=== PATIENT | male | born 1955 | race Caucasian/White ===

== ENCOUNTER 2020-08-06 10:27 | Outpatient (REF) | payer BC, SELFPAY ==
[2020-08-06 10:31] LABS: MANUAL DIFF FLAG NO
[2020-08-06 10:55] LABS: Basophils Absolute Auto 0.1 X10*3/uL (0.0-0.2); Basophils Percent Auto 1.1 % (0-2); Eosinophils Absolute Auto 0.2 X10*3/uL (0.0-0.4); Eosinophils Percent Auto 2.9 % (0-4); Hemoglobin 14.6 g/dl (14.0-18.0); Imm Gran Abs Auto 0.02 X10*3/uL (0.00-0.03); Imm Gran Pct Auto 0.3 % (0.0-0.4); Lymphocytes Absolute Auto 2.2 X10*3/uL (1.2-4.9); Mean Corpuscular HGB Conc 33.2 g/dl (31.0-36.0); Mean Corpuscular Hemoglobin 30.9 pg (27.0-33.0); Mean Corpuscular Volume 93.2 fL (80-98); Mean Platelet Volume 9.2 fL (9.4-12.4); Monocytes Absolute Auto 0.7 X10*3/uL (0.1-1.2); Monocytes Percent Auto 9.9 % (2-11); Neutrophils Absolute Auto 3.7 X10*3/uL (2.0-8.3); Neutrophils Percent Auto 53.8 % (45-73); Platelet Count 335 X10*3/uL (160-400); Red Blood Count 4.72 X10*6/uL (4.60-5.80); Red Cell Distribution Width 12.7 % (11.0-16.0)
[2020-08-06 11:01] LABS: Glucose Urine UA NEG (NEG); Leukocyte Esterase Urine NEG (NEG); Nitrite Urine NEG (NEG); Specific Gravity - Urine 1.025 (1.005-1.025); Urine Blood NEG (NEG); Urine Ketones NEG (NEG); Urine Protein NEG (NEG-TRACE)
[2020-08-06 11:03] LABS: Appearance Urine CLEAR; Color Urine YELLOW
[2020-08-06 11:29] LABS: Alanine Aminotransferase 31 U/L (0-40); Albumin Level 4.5 g/dL (3.5-5.0); Alkaline Phosphatase 107 U/L (39-117); Anion Gap 12 (12-20); Aspartate Amino Transferase 27 U/L (5-37); Bilirubin Total 1.1 mg/dL (0.0-1.0); Blood Urea Nitrogen 15 mg/dL (9-16); Calcium 9.2 mg/dL (8.4-10.2); Carbon Dioxide 31 mmol/L (22-29); Chloride 103 mmol/L (96-108); Cholesterol 167 mg/dL; Estimated Glomerular Filt Rate > 60; Glucose Fasting 92 mg/dL (60-99); HDL Cholesterol 48 mg/dL; LDL Cholesterol Calculated 84 mg/dl; Sodium 142 mmol/L (135-145); Triglycerides 176 mg/dL
[2020-08-06 11:51] LABS: PSA,Total (Free>4and<10) 0.67 ng/mL (0.00-4.00); TSH reflex Free T4 1.66 uIU/mL (0.32-4.0)
[2020-08-06 13:36] LABS: Reflex LDLD? No
== END 2020-08-06 10:28 | disposition home or self-care (01) ==
LOC: HO.LNP 10:27
PROVIDERS: Visit Provider Internal Medicine
DX: Z00.00 Encounter for general adult medical examination without abnormal findings (principal); Z12.5 Encounter for screening for malignant neoplasm of prostate; E78.2 Mixed hyperlipidemia; E04.1 Nontoxic single thyroid nodule; I10 Essential (primary) hypertension
CPT/HCPCS: 80053; 80061; 81003; 84153; 84154; 84443; 85025

== ENCOUNTER 2020-09-07 13:17 | Outpatient (REF) | payer SELFPAY | END 2020-09-07 13:18 | disposition home or self-care (01) | LOC: HO.HAP 13:17 | PROVIDERS: Visit Provider Internal Medicine | DX: Z46.1 Encounter for fitting and adjustment of hearing aid (principal); H90.3 Sensorineural hearing loss, bilateral | CPT/HCPCS: V5014; V5299 ==

== ENCOUNTER 2021-02-11 11:36 | Outpatient (REF) | payer BC, SELFPAY ==
[2021-02-11 12:41] LABS: Alanine Aminotransferase 26 U/L (0-40); Albumin Level 4.1 g/dL (3.5-5.0); Alkaline Phosphatase 84 U/L (39-117); Aspartate Amino Transferase 27 U/L (5-37); Bilirubin Direct 0.3 mg/dL (0.0-0.5); Bilirubin Total 0.7 mg/dL (0.0-1.0); Cholesterol 146 mg/dL; HDL Cholesterol 43 mg/dL; LDL Cholesterol Calculated 76 mg/dl; Total Protein 6.3 g/dL (6.5-8.0); Triglycerides 137 mg/dL
[2021-02-11 12:58] LABS: Reflex LDLD? No
== END 2021-02-11 11:37 | disposition home or self-care (01) ==
LOC: HO.LNP 11:36
PROVIDERS: Visit Provider Internal Medicine
DX: E78.2 Mixed hyperlipidemia (principal)
CPT/HCPCS: 80061; 80076

== ENCOUNTER 2021-04-15 10:02 | Outpatient (REF) | payer SELFPAY | END 2021-04-15 10:03 | disposition home or self-care (01) | LOC: HO.HAP 10:02 | PROVIDERS: PCP Internal Medicine; Visit Provider Internal Medicine | DX: H90.3 Sensorineural hearing loss, bilateral (principal) | CPT/HCPCS: V5267 ==

== ENCOUNTER 2021-07-29 14:34 | Outpatient (REF) | payer MEDICARE, SELFPAY ==
[2021-07-29 15:11] LABS: Calcium 9.5 mg/dL (8.4-10.2); Potassium 4.1 mmol/L (3.3-5.1)
== END 2021-07-29 14:35 | disposition home or self-care (01) ==
LOC: HO.LNP 14:34
PROVIDERS: Visit Provider Internal Medicine
DX: R25.2 Cramp and spasm (principal)
CPT/HCPCS: 82310; 83735; 84132

== ENCOUNTER 2021-09-23 11:24 | Outpatient (REF) | payer MEDICARE, SELFPAY ==
[2021-09-23 11:44] LABS: MANUAL DIFF FLAG NO
[2021-09-23 11:52] LABS: Appearance Urine CLEAR; Color Urine YELLOW; Glucose Urine UA NEG (NEG); Leukocyte Esterase Urine NEG (NEG); Nitrite Urine NEG (NEG); Specific Gravity - Urine >= 1.030 (1.005-1.025); Urine Blood NEG (NEG); Urine Ketones NEG (NEG); Urine Protein NEG (NEG-TRACE)
[2021-09-23 12:13] LABS: Basophils Absolute Auto 0.1 X10*3/uL (0.0-0.2); Basophils Percent Auto 1.2 % (0-2); Eosinophils Absolute Auto 0.2 X10*3/uL (0.0-0.4); Eosinophils Percent Auto 3.4 % (0-4); Hematocrit 42.2 % (42.0-52.0); Hemoglobin 13.9 g/dl (14.0-18.0); Imm Gran Abs Auto 0.07 X10*3/uL (0.00-0.03); Lymphocytes Absolute Auto 2.4 X10*3/uL (1.2-4.9); Lymphocytes Percent Auto 34.9 % (20-40); Mean Corpuscular HGB Conc 32.9 g/dl (31.0-36.0); Mean Corpuscular Hemoglobin 31.8 pg (27.0-33.0); Mean Corpuscular Volume 96.6 fL (80.0-98.0); Monocytes Absolute Auto 0.7 X10*3/uL (0.1-1.2); Monocytes Percent Auto 10.5 % (2-11); Neutrophils Absolute Auto 3.3 x10*3/uL (2.0-8.3); Platelet Count 361 X10*3/uL (160-400); Red Blood Count 4.37 X10*6/uL (4.60-5.80); Red Cell Distribution Width 13.4 % (11.0-16.0); White Blood Count 6.7 X10*3/uL (4.8-10.8)
[2021-09-23 12:16] LABS: Alanine Aminotransferase 24 U/L (0-40); Albumin Level 4.2 g/dL (3.5-5.0); Alkaline Phosphatase 89 U/L (39-117); Anion Gap 10 (12-20); Aspartate Amino Transferase 24 U/L (5-37); Bilirubin Total 0.9 mg/dL (0.0-1.0); Blood Urea Nitrogen 15 mg/dL (9-16); Calcium 9.2 mg/dL (8.4-10.2); Carbon Dioxide 30 mmol/L (22-29); Chloride 103 mmol/L (96-108); Cholesterol 144 mg/dL; Estimated Glomerular Filt Rate > 60; Glucose Fasting 95 mg/dL (60-99); HDL Cholesterol 52 mg/dL; LDL Cholesterol Calculated 72 mg/dl; Sodium 139 mmol/L (135-145); Total Protein 6.5 g/dL (6.5-8.0); Triglycerides 101 mg/dL
[2021-09-23 12:37] LABS: PSA,Total (Free>4and<10) 0.62 ng/mL (0.00-4.00)
== END 2021-09-23 11:25 | disposition home or self-care (01) ==
LOC: HO.LNP 11:24
PROVIDERS: Visit Provider Internal Medicine
DX: Z00.00 Encounter for general adult medical examination without abnormal findings (principal); I10 Essential (primary) hypertension; E78.2 Mixed hyperlipidemia; E04.1 Nontoxic single thyroid nodule; Z12.5 Encounter for screening for malignant neoplasm of prostate
CPT/HCPCS: 80053; 80061; 81003; 84153; 85025

== ENCOUNTER 2021-10-21 10:30 | Outpatient (REF) | payer MEDICARE, SELFPAY ==
[2021-10-21 11:18] LABS: Vitamin D 25-OH Total 21.5 ng/mL (>30)
== END 2021-10-21 10:31 | disposition home or self-care (01) ==
LOC: HO.LNP 10:30
PROVIDERS: PCP Internal Medicine; Visit Provider Internal Medicine
DX: M62.838 Other muscle spasm (principal)
CPT/HCPCS: 82306

== ENCOUNTER 2021-12-23 11:09 | Outpatient (REF) | payer MEDICARE, SELFPAY ==
--- NOTE | ~2021-12-23 | US_ITS ---
EXAMINATION: US THYROID CLINICAL INFORMATION: Nontoxic thyroid nodule. COMPARISON: US thyroid 11/01/2013. TECHNIQUE: Linear transducer grayscale and color Doppler examination with attention to the region of the thyroid. FINDINGS: SIZE: Measurements of the thyroid lobes and nodules are given in sagittal, anteroposterior and transverse dimensions respectively. Right Thyroid Lobe: 3.5 x 2.2 x 2.4 cm, volume 9.6 mL. Previously 4.2 x 1.6 x 2.6 cm, volume 9.13 mL. Parenchyma: The gland echotexture is homogeneous. Thyroid vascularity is normal. Left Thyroid Lobe: 4.9 x 2.9 x 2.0 cm, volume 15.0 mL. Previously 6.2 x 2.2 x 1.7 cm, volume 12.1 mL. Parenchyma: The gland echotexture is homogeneous. Thyroid vascularity is normal. Isthmus: 0.82 cm in maximum AP dimension. Previously 0.30 cm. Estimated total number of nodules greater than or equal to 1 cm: 1. Jtac nodules are described as follows: 1. Location: Right mid. Size: 0.32 x 0.25 x 0.31 cm, volume 0.01 mL. Previously: 0.24 x 0.15 x 0.22 cm, volume 0.004 mL. Nodule characteristics: Composition: Cystic(0). ACR TI-RADS total points: 0 ACR TI-RADS category: 1 Significant change in size (>/= 20% in 2 dimensions and minimal increase of 2 mm or 50% or greater increase in volume): None Change in features: None Change in ACR TI-RADS risk category: Not applicable 2. Location: Left inferior. Size: 0.63 x 0.54 x 0.60 cm, volume 0.11 mL. Previously: 0.66 x 0.52 x 0.56 cm, volume 0.10 mL. Nodule characteristics: Composition: Solid (2). Echogenicity: Cannot be determined (1). Shape: Not taller than wide (0). Margins: Smooth (0). Echogenic Foci: Peripheral calcifications (2). ACR TI-RADS total points: 5 ACR TI-RADS category: 4 Significant change in size (>/= 20% in 2 dimensions and minimal increase of 2 mm or 50% or greater increase in volume): None Change in features: None Change in ACR TI-RADS risk category: Not applicable 3. Location: Isthmus. Size: 1.5 x 0.60 x 1.8 cm, volume 0.85 mL. Previously: 0.90 x 0.50 x 0.80 cm, volume 0.19 mL. Nodule characteristics: Composition: Cystic(0). ACR TI-RADS total points: 0 ACR TI-RADS category: 1 Significant change in size (>/= 20% in 2 dimensions and minimal increase of 2 mm or 50% or greater increase in volume): Slight increase in volume. Change in features: None Change in ACR TI-RADS risk category: Not applicable. NODES: No lymphadenopathy is seen in the tissue surrounding the thyroid gland. US/US thyroid IMPRESSION: 1. Slightly enlarged thyroid gland similar to previous study from 11/02/2013. 2. At least 3 thyroid nodules subcentimeter nonsuspicious. ACR TI-RADS RECOMMENDATION REFERENCE: Ultrasound-guided fine-needle aspiration, followup ultrasound, no further follow up. * TR1 (0 point) and TR 2 (2 points): No FNA or follow up * TR3 (3 points): FNA if more than or equal to 2.5 cm in maximum dimension, followup ultrasound in 1, 3 and 5 years if 1.5 to 2.4 cm in maximum dimension. * TR4 (4-6 points): FNA if more than or equal to 1.5 cm in maximum dimension, followup ultrasound in 1, 2, 3 and 5 years if 1 to 1.4 cm in maximum dimension. * TR5 (more than or equal to 7 points): FNA if more than or equal to 1 cm in maximum dimension, followup ultrasound every year for 5 years if 0.5 to 0.9 cm in maximum dimension. * TR3, TR4 or TR5 nodules that are below the size threshold for follow up receive no follow up.
== END 2021-12-23 11:10 | disposition home or self-care (01) ==
LOC: HO.US 11:09
PROVIDERS: Visit Provider Internal Medicine
DX: E04.1 Nontoxic single thyroid nodule (principal)
CPT/HCPCS: 76536

== ENCOUNTER 2022-02-14 14:06 | Emergency (ER) | payer MEDICARE, SELFPAY ==
--- NOTE | ~2022-02-14 | CT_ITS ---
EXAMINATION: CT ABDOMEN AND PELVIS WITH CONTRAST CLINICAL INFORMATION: Right lower quadrant pain COMPARISON: None TECHNIQUE: Multidetector volumetric images were obtained from the superior aspect of the liver through the pubic symphysis following administration 85 mL of Omnipaque 350 intravenous contrast. Sagittal and coronal reformatted images were obtained on the technologist's workstation. Oral contrast: No This CT examination was performed using dose optimization techniques as appropriate, variously including the following: *Automated exposure control *Adjustment of mA and/or kV according to patient size (this includes techniques or standardized protocols for targeted exams where dose is matched to indication/reason for exam; i.e. extremities or head) *Use of iterative reconstruction technique DLP: 588 mGy-cm FINDINGS: LUNG BASES: Mild basilar markings. May be chronic. LIVER, GALLBLADDER, AND BILIARY TREE: Small 2 to 3 mm low-density lesion in the left lobe is likely incidental. The gallbladder is unremarkable with no evidence of radiopaque gallstones, gallbladder wall thickening, or obvious pericholecystic inflammatory changes. PANCREAS: Unremarkable. SPLEEN: Unremarkable. ADRENAL GLANDS: Unremarkable. KIDNEYS AND URETERS: The kidneys are normal in size, shape, and attenuation. No hydronephrosis, hydroureter, or calculi seen. No perinephric stranding. BLADDER: Unremarkable. GASTROINTESTINAL TRACT: Diverticulosis in the sigmoid. No evidence for diverticulitis. A normal appendix is not seen but no definitive suspicion around the cecum Hiatal hernia is noted ABDOMINAL WALL: There is felt to be the beginnings of a small right inguinal hernia and there is some minimal extension of bowel into the very beginning of the hernia. LYMPH NODES: Normal. VASCULAR: Mild aneurysmal change of the iliacs. 1.4 cm on the right. 1.4 cm on the left. PELVIC VISCERA: Prominent prostate OSSEOUS STRUCTURES: There replacement on the right. Some sclerotic change in the left femoral head. An element of osteonecrosis/avascular necrosis would need to be considered. The femoral head contour remains smooth CT/CT abdomen pelvis w IV con IMPRESSION: I believe we are seeing the beginnings of a small right inguinal herniation. Some small bowel leads up to this opening but there is no bowel dilatation proximal. Diverticulosis in the sigmoid but no evidence for diverticulitis. Hiatal hernia. Mild aneurysmal change of the iliacs. Sclerotic left femoral head. Osteonecrosis would be a consideration. Consider MR if clinically indicated. Fleischner guidelines were followed.
[2022-02-14 15:38] VITALS: BP 149/93; PULSE 65; RESP 16; TEMP 36.9; O2SAT 99; BMI 26.9
[2022-02-14 15:57] LABS: MANUAL DIFF FLAG NO
[2022-02-14 16:08] LABS: Basophils Absolute Auto 0.1 X10*3/uL (0.0-0.2); Basophils Percent Auto 1.4 % (0-2); Eosinophils Absolute Auto 0.3 X10*3/uL (0.0-0.4); Hematocrit 41.6 % (42.0-52.0); Hemoglobin 14.2 g/dl (14.0-18.0); Imm Gran Abs Auto 0.03 X10*3/uL (0.00-0.03); Imm Gran Pct Auto 0.4 % (0.0-0.4); Lymphocytes Absolute Auto 2.7 X10*3/uL (1.2-4.9); Lymphocytes Percent Auto 32.5 % (20-40); Mean Corpuscular HGB Conc 34.1 g/dl (31.0-36.0); Mean Corpuscular Hemoglobin 31.4 pg (27.0-33.0); Monocytes Absolute Auto 0.7 X10*3/uL (0.1-1.2); Neutrophils Absolute Auto 4.5 x10*3/uL (2.0-8.3); Neutrophils Percent Auto 54.7 % (45-73); Platelet Count 332 X10*3/uL (160-400); Red Blood Count 4.52 X10*6/uL (4.60-5.80); Red Cell Distribution Width 12.8 % (11.0-16.0); White Blood Count 8.3 X10*3/uL (4.8-10.8)
[2022-02-14 16:14] LABS: Anion Gap 15 (12-20); Blood Urea Nitrogen 15 mg/dL (9-16); Calcium 9.9 mg/dL (8.4-10.2); Carbon Dioxide 28 mmol/L (22-29); Chloride 102 mmol/L (96-108); Creatinine Clr Calc Pharmacy 62.1; Estimated Glomerular Filt Rate > 60; Glucose Random 90 mg/dL (60-115); Sodium 141 mmol/L (135-145)
--- NOTE | 2022-02-14 18:09 | ED_ITS ---
HPI - Abdominal Pain General Chief Complaint: Abdominal Pain Stated Complaint: hernia Time Seen by Provider: 02/14/22 18:08 Source: patient Mode of arrival: ambulatory Limitations: no limitations History of Present Illness HPI narrative: 66 y/o male with a PMHx of hypertension presenting to the ED with concern of r ight inguinal hernia. The patient tells me that he believes that this hernia has been present for the past 10 years, he reports having intermittent right groin pain for the duration especially after heavy lifting. He tells me that his pain has been increasing recently and that he saw his PCP today who advised him to come into the ED for further evaluation of inguinal hernia. The pain is described as dull, non-radiating. The patient has not been worked up for this in the past. He denies any additional medical complaints at this time including abdominal pain, nausea, vomiting, dysuria, hematuria, difficulty urinating, chest pain, shortness of breath, testicular pain or discharge from penis. Related Data Allergies Allergy/AdvReac Type Severity Reaction Status Date / Time lisinopril Allergy Unknown Verified 02/15/19 00:00 No Known Allergies Allergy Unverified 02/16/20 15:14 [No Known Allergies*] Review of Systems Review of Systems Constitutional : No Weight loss, No Fever, No Chills, No Fatigue, No Malaise ENT/Mouth : No sore throat, No Rhinorrhea Eyes: No Eye Pain, No Swelling, No Redness Cardiovascular : No Chest Pain, No SOB, No Dyspnea on Exertion, No Orthopnea, No Edema, No Palpitations Respiratory : No Cough, No Sputum, No Wheezing Gastrointestinal : No Nausea, No Vomiting, No Diarrhea, No Constipation, No abdominal Pain, No Hematochezia, No Melena Genitourinary : No Dysuria, No Urinary Frequency, No Hematuria, + right groin pain Musculoskeletal : No joint pain, No Myalgias, No Joint Swelling Skin : No Skin Lesions, No rash Neuro : No Weakness, No Numbness, No Dizziness, No Headache All other systems reviewed and are negative [facility] Past Medical History Attestation statement: The following information was validated with the patient. Source: old records reviewed and nursing notes reviewed Medical History (Updated 02/14/22 @ 20:22 by DAYANA Duvall) GERD (gastroesophageal reflux disease) Hyperlipidemia Hypertension Social History Social History Alcohol intake: current Alcohol intake frequency: a few times a month Alcohol type: beer and wine Patient Tobacco Use Status: Former Tobacco user Use of substances other than those prescribed or required for medical reasons: No Advance Directives: No Advance Directives Information Provided: No Physical Exam ED Vital Signs: Vital Signs - 24 hr 02/14/22 15:38 02/14/22 19:42 Temperature 98.4 F Pulse Rate 65 62 Respiratory Rate 16 18 Blood Pressure 149/93 H 136/93 H Pulse Oximetry 99 96 Oxygen Delivery Method Room Air Room Air BMI result Body Mass Index 26.9 VSS Appearance: Alert.? Oriented X3.? No acute distress.? Head: Normocephalic, atraumatic, no step-offs or deformities Eyes: Pupils equal, round and reactive to light.? ENT: Pharynx normal.? Neck: Normal inspection.? Neck supple.? CVS: Normal heart rate and rhythm.? Pulses normal.? Respiratory: No respiratory distress.? Breath sounds normal.? Abdomen: Soft and nontender.? Sensitive Exam: Normal external genitalia, no lumps or masses the scrotum, unable to palpate any inguinal hernias upon my examination. Exam is not painful at all patient appears comfortable. Unlikely incarcerated Skin: Skin warm and dry.? Normal skin color.? Normal skin turgor.? Extremities: No lower extremity edema.? No calf ttp. 5/5 strength to bilateral upper and lower extremities Back: No midline tenderness, no C-spine tenderness, full range of motion, no CVA tenderness bilaterally Neuro: Oriented X 3.? No motor deficit.? No sensory deficit. CN 2-12 intact Course Course Course Narrative: Dr. Melchor agrees that this is unlikley incarcerated. Non painful exam. Recommends outpatient surgical follow-up. Reevaluation(s) Reevaluation #1: CBC, chemistry, and urine all WNL. CT abd/pelvis pending. Time: 19:15 Reevaluation #2: Patient's CT of the abdomen and pelvis with beginnings of a small right inguinal hernia, with small bowel leading up to this opening but there is no bowel dilation proximal to, diverticulosis is noted however no diverticulitis. There is a hiatal hernia present however patient not complaining of any pain there. Mild aneurysmal change of the iliacs. 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 Will provide patient with CT scan results. I do not suspect incarcerated hernia. Will provide him with outpatient surgical follow-up. Advised him to return with new or worsening symptoms. At this time I feel comfortable with discharge home with prompt PCP and general surgery follow-up. Time: 20:21 MDM - Abdominal Pain MDM Narrative Medical decision making narrative: 19:15 66 y/o M presenting from PCP office with concern of R inguinal hernia. Pt has had right groin pain for the past 10 years, worsening recently. No additional symptoms. PE remarkable for Normal external genitalia, no lumps or masses the scrotum, unable to palpate any inguinal hernias upon my examination. Exam is not painful at all patient appears comfortable. Plan to obtain basic labs, UA, CT abd/pelvis. Suspect R inguinal hernia, less likely appendicitis, testicular torsion, acute abdominal process. Medical Records Attestation: I reviewed the patient's medical records. Lab Data Attestation: I reviewed the patient's lab results. Result diagrams: 02/14/22 15:42 02/14/22 15:42 Labs: Lab Results 02/14/22 02/14/22 02/14/22 Range/Units 15:42 15:42 18:15 WBC 8.3 (4.8-10.8) X10*3/uL RBC 4.52 L (4.60-5.80) X10*6/uL Hgb 14.2 (14.0-18.0) g/dl Hct 41.6 L (42.0-52.0) % MCV 92.0 (80.0-98.0) fL MCH 31.4 (27.0-33.0) pg MCHC 34.1 (31.0-36.0) g/dl RDW 12.8 (11.0-16.0) % Plt Count 332 (160-400) X10*3/uL MPV 9.0 L (9.4-12.4) fL Immature Gran % (Auto) 0.4 (0.0-0.4) % Neut % (Auto) 54.7 (45-73) % Lymph % (Auto) 32.5 (20-40) % [place] % (Auto) 8.0 (2-11) % Eos % (Auto) 3.0 (0-4) % Baso % (Auto) 1.4 (0-2) % Lymph # (Auto) 2.7 (1.2-4.9) X10*3/uL [place] # (Auto) 0.7 (0.1-1.2) X10*3/uL Eos # (Auto) 0.3 (0.0-0.4) X10*3/uL Baso # (Auto) 0.1 (0.0-0.2) X10*3/uL Abs Immat Gran (auto) 0.03 (0.00-0.03) X10*3/uL Absolute Neuts (auto) 4.5 (2.0-8.3) x10*3/uL Absolute Nucleated RBC 0.000 (0.0-0.012) X10*3/uL Nucleated RBC % (auto) 0.0 (0.0-0.2) /100WBC Sodium 141 (135-145) mmol/L Potassium 4.0 (3.3-5.1) mmol/L Chloride 102 (96-108) mmol/L Carbon Dioxide 28 (22-29) mmol/L Anion Gap 15 (12-20) BUN 15 (9-16) mg/dL Creatinine 1.07 (0.5-1.4) mg/dL Estim Creat Clear Calc 62.1 Estimated GFR > 60 Random Glucose 90 (60-115) mg/dL Calcium 9.9 D (8.4-10.2) mg/dL Urine Color Yellow Urine Appearance Clear Urine pH 5.5 (5.0-9.0) Ur Specific [place] 1.015 (1.005-1.025) Urine Protein Negative (Neg-Trace) mg/dL Urine Glucose (UA) Negative (Negative) mg/dL Urine Ketones Negative (Negative) mg/dL Urine Blood Negative (Negative) Urine Nitrite Negative (Negative) Ur Leukocyte Esterase Negative (Negative) Urine RBC 0-2 (0-2) /HPF Urine WBC 0-5 (0-5) /HPF Ur Squamous Epith Cells 0-2 (0-2) /HPF Urine Bacteria None Seen (None Seen) Hyaline Casts 0-2 (0-2) /LPF Critical Care Time Critical Care Time Critical Care Time: No Discharge Plan Discharge Clinical Impression: Inguinal hernia Patient Disposition: Home, Self-Care Additional Instructions: Take your medications as prescribed. If you were prescribed antibiotics today, it is important that you take your medication to their entirety, do not skip any doses, do not finish them early. Follow-up with your primary care provider this week. Follow-up with general surgery. Return to the emergency department with new or worsening symptoms. Such as fevers, chills, chest pain, shortness of breath, nausea, vomiting, dizziness, he adache, vision changes, lethargy, scrotal pain, testicular pain, penis pain In case of emergency call 911 Please refrain from heavy lifting or vigorous exercise. You can take ibuprofen every 6 hours, Tylenol every 4 as needed for pain or discomfort. FINDINGS: LUNG BASES: Mild basilar markings. May be chronic.? LIVER, GALLBLADDER, AND BILIARY TREE: Small 2 to 3 mm low-density lesion in the left lobe is likely incidental. The gallbladder is unremarkable with no evidence of radiopaque gallstones, gallbladder wall thickening, or obvious pericholecystic inflammatory changes.? PANCREAS: Unremarkable.? SPLEEN: Unremarkable.? ADRENAL GLANDS: Unremarkable.? KIDNEYS AND URETERS: The kidneys are normal in size, shape, and attenuation. No hydronephrosis, hydroureter, or calculi seen. No perinephric stranding. ? BLADDER: Unremarkable.? GASTROINTESTINAL TRACT: Diverticulosis in the sigmoid. No evidence for diverticulitis. A normal appendix is not seen but no definitive suspicion around the cecum Hiatal hernia is noted ABDOMINAL WALL: There is felt to be the beginnings of a small right inguinal hernia and there is some minimal extension of bowel into the very beginning of the hernia.? LYMPH NODES: Normal. VASCULAR: Mild aneurysmal change of the iliacs. 1.4 cm on the right. 1.4 cm on the left. PELVIC VISCERA: Prominent prostate? OSSEOUS STRUCTURES: There replacement on the right. Some sclerotic change in the left femoral head. An element of osteonecrosis/avascular necrosis would need to be considered. The femoral head contour remains smooth? CT/CT abdomen pelvis w IV con IMPRESSION: I believe we are seeing the beginnings of a small right inguinal herniation. Some small bowel leads up to this opening but there is no bowel dilatation proximal. ? Diverticulosis in the sigmoid but no evidence for diverticulitis. ? Hiatal hernia. ? Mild aneurysmal change of the iliacs. ? Sclerotic left femoral head. Osteonecrosis would be a consideration. Consider MR if clinically indicated. Referrals: Yaya Galeano MD [Primary Care Provider] - 2 days Medardo Car MD [Physician] - 3 days Stand Alone Forms: Work/School Release
[2022-02-14] MEDS: iohexoL 350 MG/ML 100 ML INFUS..BTL IV (18:36)
[2022-02-14 18:50] LABS: Appearance Urine Clear; Color Urine Yellow; Glucose Urine UA Negative (Negative); Leukocyte Esterase Urine Negative (Negative); Nitrite Urine Negative (Negative); PH 5.5 (5.0-9.0); Specific Gravity - Urine 1.015 (1.005-1.025); Urine Blood Negative (Negative); Urine Ketones Negative (Negative); Urine Protein Negative (Neg-Trace)
[2022-02-14 18:54] LABS: Bacteria Urine None Seen (None Seen); Hyaline Casts Urine 0-2 /LPF (0-2); RBC Urine 0-2 /HPF (0-2); Squamous Epithelial Cell Urine 0-2 /HPF (0-2); WBC Urine 0-5 /HPF (0-5)
[2022-02-14 19:42] VITALS: BP 136/93; PULSE 62; RESP 18; O2SAT 96
== END 2022-02-14 21:05 | disposition home or self-care (01) ==
PROVIDERS: Emergency Provider Internal Medicine; PCP Internal Medicine
DX: K40.90 Unilateral inguinal hernia, without obstruction or gangrene, not specified as recurrent (principal); K57.90 Diverticulosis of intestine, part unspecified, without perforation or abscess without bleeding; R10.31 Right lower quadrant pain; I10 Essential (primary) hypertension; E78.5 Hyperlipidemia, unspecified
CPT/HCPCS: 36415; 74177; 80048; 81001; 85025; 99284; Q9967

== ENCOUNTER → 2022-02-26 10:52 | Outpatient (BNVA) | payer MEDICARE, SELFPAY | PROVIDERS: PCP Internal Medicine; Visit Provider Surgery | DX: K40.90 Unilateral inguinal hernia, without obstruction or gangrene, not specified as recurrent (principal) | CPT/HCPCS: 99202 ==

== ENCOUNTER 2022-03-14 10:52 | Day surgery (SDC) | payer MEDICARE, SELFPAY ==
--- NOTE | 2022-03-13 09:13 | P.CONAN_ITS ---
Documented by User: Marisol Alan NP 03/13/22 09:14 HPI - Anesthesia Eval Consult details Narrative: 66yo M for Right Hernia Repair Inguinal with mesh PMFSH Active Problems Active Problems: All Active Problems (Updated 02/26/22 @ 11:00 by Medardo Car MD) Right inguinal hernia (Acute) Past Medical History Medical History GERD (gastroesophageal reflux disease) Hyperlipidemia Hypertension Right inguinal hernia Surgical History Surgical History History of total hip replacement Hx of knee surgery Social History Social History Alcohol intake: current Alcohol intake frequency: a few times a month Alcohol type: beer and wine Patient Tobacco Use Status: Former Tobacco user Quit Date: 15 yrs ago for 10 yrs Use of substances other than those prescribed or required for medical reasons: No Are you DNR?: No Advance Directives: No Advance Directives Information Provided: Yes Meds Allergies Allergy/AdvReac Type Severity Reaction Status Date / Time lisinopril Allergy Unknown Unknown Verified 03/12/22 14:08 Home Medications Medication Instructions Recorded Confirmed Last Taken Type atorvastatin 20 mg tablet 20 mg PO DAILY 02/26/22 03/14/22 Unknown History esomeprazole magnesium 40 mg 40 mg PO DAILY 02/26/22 03/14/22 Unknown History capsule,delayed release sildenafil 100 mg tablet 50 mg PO DAILY 02/26/22 03/14/22 Unknown History valsartan 320 1 tab PO DAILY 02/26/22 03/14/22 Unknown History mg-hydrochlorothiazide 12.5 mg tablet famotidine 20 mg tablet 20 mg PO DAILY 03/14/22 03/14/22 Unknown History Exam Exam Date and Time: March 13, [id number] Pertinent Lab Results Pertinent Lab Results: Laboratory Tests 02/14/22 02/14/22 15:42 15:42 WBC 8.3 Hgb 14.2 Hct 41.6 L Plt Count 332 Sodium 141 Potassium 4.0 Chloride 102 Carbon Dioxide 28 BUN 15 Creatinine 1.07 Assessment and Plan Assessment Anesthesia Assessment: Chart Reviewed Documented by User: Morgan Almazan MD 03/14/22 12:18 [facility] Past Medical History Medical History GERD (gastroesophageal reflux disease) Hyperlipidemia Hypertension Right inguinal hernia Family History Family history of problems with anesthesia: No Surgical History Surgical History History of total hip replacement Hx of knee surgery History of Problems with Anesthesia: No Social History Social History Alcohol intake: current Alcohol intake frequency: a few times a month Alcohol type: beer and wine Patient Tobacco Use Status: Former Tobacco user Quit Date: 15 yrs ago for 10 yrs Use of substances other than those prescribed or required for medical reasons: No Are you DNR?: No Advance Directives: No Advance Directives Information Provided: Yes Meds Allergies Allergy/AdvReac Type Severity Reaction Status Date / Time lisinopril Allergy Unknown Unknown Verified 03/12/22 14:08 Home Medications Medication Instructions Recorded Confirmed Last Taken Type atorvastatin 20 mg tablet 20 mg PO DAILY 02/26/22 03/14/22 Unknown History esomeprazole magnesium 40 mg 40 mg PO DAILY 02/26/22 03/14/22 Unknown History capsule,delayed release sildenafil 100 mg tablet 50 mg PO DAILY 02/26/22 03/14/22 Unknown History valsartan 320 1 tab PO DAILY 02/26/22 03/14/22 Unknown History mg-hydrochlorothiazide 12.5 mg tablet famotidine 20 mg tablet 20 mg PO DAILY 03/14/22 03/14/22 Unknown History Exam Airway Mallampati Class: II TM Dist: >3cm Neck ROM: Full Loose/Missing/Broken Teeth: Yes (many implants and crowns) Heart: [id number] Lungs: cta b/l Assessment and Plan Assessment Anesthesia Assessment: Anesthesia Plan Discussed Final Anesthetic Review Family History of Problems with Anesthesia: No History of Problems with Anesthesia: No NPO: Yes ASA Class: II Final Preanesthetic Review: No Changes in Pt Med Stat, Meds/Allgs Chart Reviewed, Consent Obtained/Reviewed and Anes Risks/Benef Reviewed Patient Risk: Intermediate Procedure Risk: Intermediate Assessment/Block/Sedation in SS: Assess/Block/Sedation-SS Anesthetic Plan Anesthetic Plan: GA and Agree w/ Assess. and Plan Disposition: Standard PACU
[2022-03-14] VITALS (8 sets, daily range): BP systolic 122–148; BP diastolic 70–83; PULSE 70–95; RESP 15–18; TEMP 36.2–36.8; O2SAT 94–98; BMI 26.7
[2022-03-14] MEDS: Lactated Ringers 1,000 ML 100 ML IVCONT (11:47)
--- NOTE | 2022-03-14 12:02 | MHC.SHP ---
Pre-Procedural Eval Section A Date of Service: 03/14/22 The patient is an INPATIENT: No Changes since office visit: No Cold of Flu in the past 2 weeks, No New Medical Problems, No Changes in Medication and No Patient answered all questions The History & Physical has been completed within 30 days and I have reviewed it.: Yes Section B Chief Complaint: Unilateral inguinal hernia, without obstruction or Allergies: Allergies Allergy/AdvReac Type Severity Reaction Status Date / Time lisinopril Allergy Unknown Unknown Verified 03/12/22 14:08 Plan I have reviewed the history and physical and performed a pertinent physical examination on my patient. No changes have occurred unless specified.
--- NOTE | 2022-03-14 13:21 | P.OP_ITS ---
Operative Note Operative Note Date of Service: 03/14/22 Narrative: Preop diagnosis: Inguinal hernia Postop diagnosis: Right inguinal hernia, indirect Procedure: Repair of right inguinal hernia with mesh Surgeon: Medardo Car MD apartment community assistant manager: DAYANA Dow The patient is a 66-year-old male with a reducible mass on the right groin consistent with a right inguinal hernia. He understood the technique of repair with mesh. He was aware of the risks, benefits, and alternatives. He was bBrought to the operating room. He was placed supine under general anesthesia via laryngeal mask airway. The right groin was prepped and draped in the usual sterile fashion. A surgical time-out was done. The patient received cefazolin 2 g IV preoperatively. I infiltrated the planned line of incision with lidocaine 1%. I made a short incision an imaginary line on the skin from the anterior superior iliac spine to the pubic ramus using a blade 15. This carried down with cautery through the full-thickness of the skin subcutaneous fat until I was able to expose the exte rnal oblique aponeurosis. I bluntly dissected the external oblique neurosis to identify the external oblique. This was seen and a fat-containing hernia was noted. I made a short incision on the external oblique neurosis blade 15. And extended this inferomedially to connect with the external ring. The inguinal canal was therefore entered. I I applied graspers on the edges of the external oblique aponeurosis. I bluntly dissected the underside to create space for the mesh. I bluntly dissected the spermatic cord and its contents with an index finger until was able to pass a Michelle drain around this. This Michelle drain was used for retraction. I identified the vas deferens and the accompanying vessels. This were protected during the rest of the procedure. Cecilio- medial to this was hernia sac containing fat.. I bluntly dissected the sac off of the rest of the cord contents until was able to reduce this through the internal ring. This was therefore an indirect hernia. I reinforced the internal ring of the Prolene plug. The plug was secured with Prolene 2-0 sutures to the shelving edge of the inguinal and laterally and the internal oblique superiorly using the inner l eaves of the mesh. I then reinforced the floor of the canal with a keyhole mesh. The tails of the mesh were passed around the cord at the level of the internal ring and secured together with Prolene 2 sutures. I flattened the mesh on the floor of the canal and secured this with Prolene 2 sutures to the shelving edge of the inguinal ligament laterally, the internal oblique superiorly and medially and the previous ramus inferomedially. I regain it and observe for hemostasis. Once hemostasis was ensured, I proceeded to then remove the Gallion drain. The external oblique aponeurosis was closed with a running Dexon 2-0 stitch to re-create the external ring. The subcutaneous layer was reapposed with Dexon 3-0 interrupted sutures. Skin closure was achieved with Dexon 4-0 subcuticular running stitch. Steri-Strips and dressings were applied. The incision was infiltrated with Marcaine 0.5% for postop analgesia the procedure was completed The patient tolerated procedure well. There were no immediate complications. Initial and final counts of sponges and instruments were correct. Estimated blood loss was about 10 cc. The patient was extubated without difficulty and transferred to the recovery room with stable vital signs.
[2022-03-14] MEDS: oxyCODONE HCl Immed Release 5 MG TABLET 10 MG PO (13:47)
[2022-03-14] MEDS: ondansetron HCL 4 MG/2 ML VIAL IVPUSH (13:48)
== END 2022-03-14 15:12 | disposition home or self-care (01) ==
PROVIDERS: PCP Internal Medicine; Visit Provider Surgery
PROC: (CPT 49505; principal; 2022-03-14 13:30)
DX: K40.90 Unilateral inguinal hernia, without obstruction or gangrene, not specified as recurrent (principal); K21.9 Gastro-esophageal reflux disease without esophagitis; I10 Essential (primary) hypertension; E78.5 Hyperlipidemia, unspecified; Z79.899 Other long term (current) drug therapy; Z88.8 Allergy status to other drugs, medicaments and biological substances; Z87.891 Personal history of nicotine dependence
CPT/HCPCS: 49505; C1781; J0690; J1885; J2250; J2405; J2795; J3010

== ENCOUNTER 2022-04-21 10:39 | Outpatient (REF) | payer MEDICARE, SELFPAY ==
[2022-04-21 11:43] LABS: Alanine Aminotransferase 26 U/L (0-40); Albumin Level 4.6 g/dL (3.5-5.0); Alkaline Phosphatase 99 U/L (39-117); Aspartate Amino Transferase 20 U/L (5-37); Bilirubin Direct 0.2 mg/dL (0.0-0.5); Bilirubin Total 0.5 mg/dL (0.0-1.0); Cholesterol 186 mg/dL; HDL Cholesterol 43 mg/dL; LDL Cholesterol Calculated 82 mg/dl; Triglycerides 309 mg/dL
[2022-04-21 13:39] LABS: Reflex LDLD? No
== END 2022-04-21 10:40 | disposition home or self-care (01) ==
LOC: HO.LNP 10:39
PROVIDERS: Visit Provider Internal Medicine
DX: E78.2 Mixed hyperlipidemia (principal)
CPT/HCPCS: 80061; 80076

== ENCOUNTER 2022-05-13 10:52 | Outpatient (REF) | payer SELFPAY ==
--- NOTE | 2022-05-13 11:15 | MHC.AU.HA3 ---
Hearing Instrument Follow-Up- Binaural Date of Visit: 05/13/22 Right Ear: lBas, Model, Color, Serial Number: Kashmir Lopez [id number] SN: [id number] Color: Graphite Garcia Cash Specialist Repair Warranty: Battery Size: Rechargeable Courtesy Driver/Slim Tube: 2xS Earmold/Dome/CShell/SlimTip:Large open dome Type of Wax Guard: CeruStop Dispensed By: [facility] Date of Fittin11/05/2016 Left Ear: Blas, Model, Color, Serial Number: Kashmir Lopez [id number] SN: [id number] Color: Graphite Garcia Cash Specialist Repair Warranty: Battery Size: Rechargeable Courtesy Driver/Slim Tube: 2xS Earmold/Dome/CShell/SlimTip: Large open dome Type of Wax Guard: CeruStop Dispensed By: [facility] Date of Fittin11/05/2016 Follow-Up Summary: Casey reported the glue at the base of the left supervisor beam department fell off and is starting to separate on the right supervisor beam department. Casey opted to replace both receivers. Cleaned the hearing aids and vacuumed the microphones. A listening check with the new receivers demonstrated both hearing aids are in good working order. Casey noticed an improvement in sound quality in office. Paid $300.00 for the replacements. Recommendations: Hearing instrument maintenance in 6 months, or sooner if needed. Please contact our clinic with any questions or concerns. Recommendations (Other): Updated audiological evaluation - Casey will request a doctor's order for the test. Diagnosis Code(s): Primary Diagnosis: H90.3 Bilateral Sensorineural Hearing Loss Signature: Provider: Nicolette Ruiz, [facility]
== END 2022-05-13 10:53 | disposition home or self-care (01) ==
LOC: HO.HAP 10:52
PROVIDERS: Visit Provider Internal Medicine
DX: Z46.1 Encounter for fitting and adjustment of hearing aid (principal); H90.3 Sensorineural hearing loss, bilateral
CPT/HCPCS: V5299

== ENCOUNTER → 2022-06-30 15:39 | Outpatient (BNVA) | payer MEDICARE, SELFPAY | PROVIDERS: PCP Internal Medicine; Visit Provider Surgery | DX: R10.31 Right lower quadrant pain (principal) | CPT/HCPCS: 99212 ==

== ENCOUNTER 2022-07-04 11:03 | Outpatient (REF) | payer MEDICARE, SELFPAY ==
--- NOTE | ~2022-07-04 | CT_ITS ---
EXAMINATION: CT ABDOMEN AND PELVIS WITHOUT CONTRAST CLINICAL INFORMATION: Right lower quadrant pain. COMPARISON: CT abdomen and pelvis with IV contrast 02/14/2022. TECHNIQUE: Multidetector volumetric imaging was performed from the superior aspect of the liver through the pubic symphysis. Sagittal and coronal reformatted images were obtained on the technologist's workstation. This CT examination was performed using dose optimization techniques as appropriate, variously including the following: *Automated exposure control *Adjustment of mA and/or kV according to patient size (this includes techniques or standardized protocols for targeted exams where dose is matched to indication/reason for exam; i.e. extremities or head) *Use of iterative reconstruction technique DLP: 471 mGy-cm. FINDINGS: LUNG BASES: The visualized lung bases are unremarkable. There is a small hiatal hernia. LIVER, GALLBLADDER, AND BILIARY TREE: The liver is normal in size, shape, and attenuation. No focal hepatic lesion or biliary ductal dilatation is present. The gallbladder is unremarkable with no evidence of radiopaque gallstones, gallbladder wall thickening, or obvious pericholecystic inflammatory changes. PANCREAS: Unremarkable. SPLEEN: Unremarkable. ADRENAL GLANDS: Unremarkable. KIDNEYS AND URETERS: The kidneys are normal in size, shape, and attenuation. No hydronephrosis, hydroureter, or calculi seen. No perinephric stranding. BLADDER: Unremarkable. GASTROINTESTINAL TRACT: There is scattered stool, diverticuli and gas seen throughout the colon without any mural thickening or pericolic fat stranding. The small bowel loops are normal caliber. Appendix is normal caliber. ABDOMINAL WALL: There is tiny umbilical hernia containing fat. LYMPH NODES: Normal. VASCULAR: Unremarkable. PELVIC VISCERA: There is no free air or free fluid seen. The prostate gland is normal size. Scattered phleboliths are seen in the pelvis OSSEOUS STRUCTURES: There are degenerative disc changes L3-L4, L1-L2 disc levels with mild ventral spondylosis throughout lumbar spine sparing the L5-S1 disc level. There is mild right L5-S1 facet joint arthropathy. 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 There is a heterogeneous appearing left femoral head without articular surface deformity. Question early stages of AVN. CT/CT abdomen pelvis wo IV con IMPRESSION: 1. No acute intra-abdominal process seen. 2. Colonic diverticulosis without diverticulitis. No change from last CT. 3. Small hiatal hernia, stable. Fleischner guidelines were followed.
== END 2022-07-04 11:04 | disposition home or self-care (01) ==
LOC: HO.CT 11:03
PROVIDERS: PCP Internal Medicine; Visit Provider Surgery
DX: R10.31 Right lower quadrant pain (principal)
CPT/HCPCS: 74176

== ENCOUNTER 2022-12-08 11:27 | Outpatient (REF) | payer MEDICARE, SELFPAY | END 2022-12-08 11:28 | disposition home or self-care (01) | LOC: HO.LNP 11:27 | PROVIDERS: Visit Provider Internal Medicine | DX: Z00.00 Encounter for general adult medical examination without abnormal findings (principal); Z12.5 Encounter for screening for malignant neoplasm of prostate; E78.2 Mixed hyperlipidemia; I10 Essential (primary) hypertension | CPT/HCPCS: 80053; 80061; 81001; 84153; 85025 ==

== ENCOUNTER 2023-01-19 09:44 | Outpatient (REF) | payer MEDICARE, SELFPAY ==
--- NOTE | ~2023-01-19 | US_ITS ---
EXAMINATION: US THYROID CLINICAL INFORMATION: Thyroid nodule. COMPARISON: Ultrasound soft tissue head/neck thyroid dated 12/23/2021 and 11/01/2013. TECHNIQUE: Linear and curved transducer grayscale and color Doppler examination with attention to the region of the thyroid. FINDINGS: SIZE: Measurements of the thyroid lobes and nodules are given in sagittal, anteroposterior and transverse dimensions respectively. Right Thyroid Lobe: 4.1 x 2.5 x 2.3 cm, volume 12.3 mL. Previously 3.5 x 2.2 x 2.4 cm, volume 9.6 mL. Parenchyma: The gland echotexture is homogeneous. Thyroid vascularity is normal. Left Thyroid Lobe: 6.7 x 2.8 x 2.1 cm, volume 20.6 mL. Previously 4.9 x 2.9 x 2.0 cm, volume 15.0 mL. Parenchyma: The gland echotexture is homogeneous. Thyroid vascularity is increased. Isthmus: 0.9 cm in maximum AP dimension. Previously 0.8 cm. Estimated total number of nodules greater than or equal to 1 cm: 2. Janitor Supervisor nodules are described as follows: 1. Location: Left inferior. Size: 2.3 x 1.5 x 2.2 cm, volume 3.74 mL. Previously: 1.4 x 1.4 x 1.6 cm on 2013 exam, not seen on most recent November 2021 exam. Nodule characteristics: Composition: Solid (2). Echogenicity: Isoechoic (1). Shape: Not taller than wide (0). Margins: Smooth (0). Echogenic Foci: Macrocalcifications (1). ACR TI-RADS total points: 4 Previous: ACR TI-RADS category: 4 Previous: Significant change in size (>/= 20% in 2 dimensions and minimal increase of 2 mm or 50% or greater increase in volume): Yes Change in features: No Change in ACR TI-RADS risk category: Not available 2. Location: Left inferior medial. Size: 2.6 x 2.6 x 2.7 cm, volume 9.46 mL. Previously: 1.5 x 0.6 x 1.8 cm solid component, and 1.8 x 1.5 x 0.6 cm cystic component on 2021 exam Nodule characteristics: Composition: Solid/almost completely solid (2). Echogenicity: Isoechoic (1). Shape: Not taller than wide (0). Margins: Cannot be determined (0). Echogenic Foci: Macrocalcifications (1). Punctate echogenic foci (3). ACR TI-RADS total points: 7 Previous: 0 ACR TI-RADS category: 5 Previous: 1 Significant change in size (>/= 20% in 2 dimensions and minimal increase of 2 mm or 50% or greater increase in volume): Not appreciably changed in size. This was measured as separate cystic and adjacent solid nodule on 2021 exam. Change in features: Yes Change in ACR TI-RADS risk category: Yes Previously identified small right mid nodule on 2021 exam not appreciated. NODES: No lymphadenopathy is seen in the tissue surrounding the thyroid gland. US/US thyroid IMPRESSION: Enlarged heterogeneous hypervascular left lobe. 2 left thyroid nodules. Exam is technically difficult due to patient body habitus/low position of the thyroid gland and comparison with prior exams is difficult. There is interval increase in size in the 2.3 x 1.5 x 2.2 cm nodule in the inferior left lobe compared to October 2013 exam. This was not visualized on most recent exam November 2021. There is no appreciable change in the size in the partially solid partially cystic nodule left mid medial nodule compared to most recent exam November 2021 however this was measured as 2 separate nodules and is now measured as 1 nodule. This does have new punctate calcifications which changes TI RADS point and category. Fine-needle aspiration of both nodules according to TI RADS criteria recommended. Left inferior nodule may be difficult due to inferior and deep location.
== END 2023-01-19 09:45 | disposition home or self-care (01) ==
LOC: HO.US 09:44
PROVIDERS: PCP Internal Medicine; Visit Provider Internal Medicine
DX: E04.1 Nontoxic single thyroid nodule (principal)
CPT/HCPCS: 76536

== ENCOUNTER 2023-06-11 11:13 | Outpatient (REF) | payer MEDICARE, SELFPAY ==
[2023-06-11 11:49] LABS: Alanine Aminotransferase 32 U/L (0-40); Albumin Level 4.4 g/dL (3.5-5.0); Alkaline Phosphatase 117 U/L (39-117); Aspartate Amino Transferase 31 U/L (5-37); Bilirubin Direct 0.3 mg/dL (0.0-0.5); Bilirubin Total 0.7 mg/dL (0.0-1.0); Cholesterol 177 mg/dL (<200); HDL Cholesterol 46 mg/dL (>40); LDL Cholesterol Calculated 89 mg/dL (<100); Total Protein 7.1 g/dL (6.5-8.0); Triglycerides 211 mg/dL (<150)
[2023-06-11 12:34] LABS: Reflex LDLD? No
== END 2023-06-11 11:14 | disposition home or self-care (01) ==
LOC: HO.LNP 11:13
PROVIDERS: Visit Provider Internal Medicine
DX: E78.2 Mixed hyperlipidemia (principal)
CPT/HCPCS: 80061; 80076

== ENCOUNTER 2023-12-21 10:45 | Outpatient (REF) | payer MEDICARE, SELFPAY ==
[2023-12-21 10:50] LABS: MANUAL DIFF FLAG NO
[2023-12-21 10:58] LABS: Basophils Absolute Auto 0.1 X10*3/uL (0.0-0.2); Basophils Percent Auto 1.6 % (0-2); Eosinophils Absolute Auto 0.3 X10*3/uL (0.0-0.4); Hematocrit 41.6 % (42.0-52.0); Hemoglobin 14.5 g/dl (14.0-18.0); Imm Gran Abs Auto 0.02 X10*3/uL (0.00-0.03); Imm Gran Pct Auto 0.3 % (0.0-0.4); Lymphocytes Absolute Auto 2.4 X10*3/uL (1.2-4.9); Lymphocytes Percent Auto 35.8 % (20-40); Mean Corpuscular HGB Conc 34.9 g/dl (31.0-36.0); Mean Corpuscular Hemoglobin 32.7 pg (27.0-33.0); Mean Corpuscular Volume 93.7 fL (80.0-98.0); Mean Platelet Volume 9.1 fL (9.4-12.4); Monocytes Absolute Auto 0.8 X10*3/uL (0.1-1.2); Monocytes Percent Auto 11.6 % (2-11); Neutrophils Absolute Auto 3.2 x10*3/uL (2.0-8.3); Neutrophils Percent Auto 46.7 % (45-73); Platelet Count 317 X10*3/uL (160-400); Red Blood Count 4.44 X10*6/uL (4.60-5.80); Red Cell Distribution Width 12.6 % (11.0-16.0); White Blood Count 6.8 X10*3/uL (4.8-10.8)
[2023-12-21 10:59] LABS: Appearance Urine Clear; Color Urine Yellow; Glucose Urine UA Negative (Negative); Leukocyte Esterase Urine Negative (Negative); Nitrite Urine Negative (Negative); Specific Gravity - Urine 1.025 (1.005-1.025); Urine Blood Negative (Negative); Urine Ketones Negative (Negative); Urine Protein Trace mg/dL (Neg-Trace)
[2023-12-21 11:03] LABS: Bacteria Urine None Seen (None Seen); Hyaline Casts Urine 0-2 /LPF (0-2); RBC Urine 0-2 /HPF (0-2); Squamous Epithelial Cell Urine 0-2 /HPF (0-2); WBC Urine 0-5 /HPF (0-5)
[2023-12-21 11:18] LABS: Alanine Aminotransferase 30 U/L (0-40); Albumin Level 4.3 g/dL (3.5-5.0); Alkaline Phosphatase 98 U/L (39-117); Anion Gap 13 (12-20); Aspartate Amino Transferase 30 U/L (5-37); Bilirubin Total 0.7 mg/dL (0.0-1.0); Blood Urea Nitrogen 14 mg/dL (9-16); Calcium 9.6 mg/dL (8.4-10.2); Carbon Dioxide 27 mmol/L (22-29); Chloride 103 mmol/L (96-108); Cholesterol 164 mg/dL (<200); Estimated Glomerular Filt Rate > 60; Glucose Fasting 92 mg/dL (60-99); HDL Cholesterol 47 mg/dL (>40); LDL Cholesterol Calculated 86 mg/dL (<100); Potassium 3.7 mmol/L (3.3-5.1); Sodium 139 mmol/L (135-145); Triglycerides 158 mg/dL (<150)
[2023-12-21 11:27] LABS: PSA,Total (Free>4and<10) 0.68 ng/mL (0.00-4.00)
[2023-12-21 11:34] LABS: Vitamin D 25-OH Total 55.4 ng/mL (>30)
== END 2023-12-21 10:46 | disposition home or self-care (01) ==
LOC: HO.LNP 10:45
PROVIDERS: Visit Provider Internal Medicine
DX: Z00.00 Encounter for general adult medical examination without abnormal findings (principal); I10 Essential (primary) hypertension; E78.2 Mixed hyperlipidemia; E55.9 Vitamin D deficiency, unspecified; Z12.5 Encounter for screening for malignant neoplasm of prostate
CPT/HCPCS: 80053; 80061; 81001; 82306; 84153; 85025

== ENCOUNTER 2024-05-20 13:03 | Outpatient (REF) | payer MEDICARE, SELFPAY ==
--- OUTSIDE RECORDS SUMMARY | 2024-05-20 13:06 | XMS_ITS ---
Author Organization Yaya Galeano MD Address [address] [place] [phone] Care Team Providers Care Acquisitions Editor Name Role Phone Yaya Galeano Primary Care Provider REASON FOR VISIT flu shot IMMUNIZATIONS Vaccine Route Administration Date Status Comme nts Fluarix Quadrivalent - 150 IM Intramuscular 03/28/2024 Adm inistered Encounters Encounter Location Date Provider Diagnosis Yaya Galeano MD [address] [place] [phone] 03/28/2024 Yaya Galeano Encounter for immunization Z23 ASSESSMENTS Encounter Date Diagnosis Assessment Notes Treatment Notes Treatment Clinical Notes 03/28/2024 Encounter for immunization (ICD-10 - Z23) PLAN OF TREATMENT Next Appt Details Provider Name:Yaya hilliard, 05/27/2024 09:15:00 AM, [address] [place] [address], [address], [phone], Provider Name:Yaya hilliard, 12/23/2024 07:15:00 AM, [address], [address] [place], [phone], Provider Name:Yaya hilliard, 12/30/2024 08:30:00 AM, [address], [address], [place], [phone],
--- OUTSIDE RECORDS SUMMARY | 2024-05-20 13:06 | XMS_ITS ---
Author Organization Yaya Galeano MD Address [address] [place] [phone] Care Team Providers Care Corduroy Cutter Operator Name Role Phone Yaya Galeano Primary Care Provider [phone] REASON FOR VISIT FASTING LIPIDS Encounters Encounter Location Date Provider Diagnosis Yaya Galeano MD [address] [place] [phone] 05/20/2024 Yaya Galeano Mixed hyperlipidemia E78.2 ASSESSMENTS Encounter Date Diagnosis Assessment Notes Treatment Notes Treatment Clinical Notes 05/20/2024 Mixed hyperlipidemia (ICD-10 - E78.2) PLAN OF TREATMENT Pending Test Test Name Order Date Liver Panel 05/20/2024 Lipid Panel with Reflex 05/20/2024 Next Appt Details Provider Name:Yaya hilliard, 05/27/2024 09:15:00 AM, [address] [place] [address], [address] [place] [address], [phone], Provider Name:Yaya hilliard, 12/23/2024 07:15:00 AM, [address], [address], [phone], Provider Name:Yaya hilliard, 12/30/2024 08:30:00 AM, [address] [place] [address], [address], [place], [phone],
--- OUTSIDE RECORDS SUMMARY | 2024-05-20 13:06 | XMS_ITS | Patient Health Record ---
Author Organization Yaya Galeano MD Address [address] [place], [place] [phone] Care Team Providers Care Monument Stonecutter Name Role Phone Yaya Galeano Primary Care Provider [phone] ALLERGIES Allergen (clinical drug ingredient) Drug/Non Drug Allergy documented on EMR Reaction Allergy Type Onset Date Status lisinopril Lisinopril cough Drug Allergy Activ e RESULTS Component Value Reference Range Notes Barbara Kovacs Reviewed date:06/11/2023 12:11:23 PM Interpretation: Performing Lab:[facility], [address] [place] [phone] Notes/Report: Barbara Kovacs See Note Specimen held untested for 24 hours; Call to request Chemistry testing. Liver Panel Reviewed date:06/11/2023 05:24:42 PM Interpretation: Performing Lab:[facility], [address] [place] [phone] Notes/Report: Bilirubin Total 0.7 0.0-1.0 mg/dL Bilirubin Direct 0.3 0.0-0.5 mg/dL Aspartate Amino Transferase 31 5-37 U/L Alanine Aminotransferase 32 0-40 U/L Total Protein 7.1 6.5-8.0 g/dL Albumin Level 4.4 3.5-5.0 g/dL Alkaline Phosphatase 117 39-117 U/L Lipid Panel with Reflex Reviewed date:06/11/2023 05:23:37 PM Interpretation: Performing Lab:[facility], [address] [place] [phone] Notes/Report: Triglycerides 211 <150 mg/dL Desirable Triglyceride: less than 150 mg/dL Borderline High Triglyceride 150-199 mg/dL High Triglyceride: 200-499 mg/dL Very High Triglyceride: greater than or equal to 5OO mg/dL Cholesterol 177 <200 mg/dL Desirable Cholesterol: less than 200 mg/dL Borderline High Cholesterol: 200-239 mg/dL High Cholesterol: greater than 239 mg/dL LDL Cholesterol Calculated 89 <100 mg/dL Desirable LDL: less than 100 mg/dL Near Optimal/Above Optimal LDL: 110-129 mg/dL Borderline High LDL: 130-159 mg/dL High LDL: 160-189 mg/dL Very High LDL: greater than or equal to 190 mg/dL HDL Cholesterol 46 >40 mg/dL Desirable HDL: greater than 40 mg/dL Note: This HDL assay may give artificially low results in patients with liver disease. Complete Blood Count Auto Di ff Reviewed date:12/21/2023 12:37:16 PM Interpretation: Performing Lab:[facility], [address] [place] [phone] Notes/Report: White Blood Count 6.8 4.8-10.8 X10*3/uL [...] NRBC Abs Auto 0.000 0.0-0.012 X10*3/uL Comprehensive [place]. Panel Fa st Reviewed date:12/21/2023 12:40:43 PM Interpretation: Performing Lab:[facility], [address] [place] [phone] Notes/Report: Sodium 139 135-145 mmol/L Potassium 3.7 3.3-5.1 mmol/L Chloride 103 96-108 mmol/L Carbon Dioxide 27 22-29 mmol/L Anion Gap 13 12-20 Blood Urea Nitrogen 14 9-16 mg/dL Creatinine 1.14 0.5-1.4 mg/dL Estimated Glomerular Filt Rate > 60 NOTE: For -[place]ambod[place] individuals, multiply the result by 1.210. Chronic [...] Panel Reviewed date:12/21/2023 12:37:48 PM Interpretation: Performing Lab:[facility], [address] [place] [phone] Notes/Report: Triglycerides 158 <150 mg/dL Desirable Triglyceride: [...] (Free>4and<10) Reviewed date:12/21/2023 12:34:20 PM Interpretation: Performing Lab:[facility], [address] [place] [phone] Notes/Report: PSA,Total (Free>4and<10) 0.68 0.00-4.00 ng/mL A [...] Total Reviewed date:12/21/2023 12:36:18 PM Interpretation: Performing Lab:[facility], [address] [place] [phone] Notes/Report: Vitamin D 25-OH Total 55.4 >30 ng/mL Health Based Reference Values* < 20 ng/mL Deficient 20-30 ng/mL Insufficient > 30 ng/mL Sufficient *Holick MF. N Engl J Med. 2007;357:266-280 Care must [...] t Reviewed date:12/21/2023 05:38:29 PM Interpretation: Performing Lab:[facility], [address] [place] [phone] Notes/Report: Urine, Clean Catch Color Urine Yellow Appearance Urine Clear PH 6.0 5.0-9.0 Glucose Urine UA Negative Negative mg/dL Urine Blood Negative Negative Specific [place] - Urine 1.025 1.005-1.025 Urine Protein Trace Neg-Trace mg/dL Urine Ketones Negative Negative mg/dL Nitrite Urine Negative Negative Leukocyte Esterase Urine Negative Negative RBC Urine 0-2 0-2 /HPF WBC Urine 0-5 0-5 /HPF Squamous Epithelial Cell Urine 0-2 0-2 /HPF Bacteria Urine None Seen None Seen Hyaline Casts Urine 0-2 0-2 /LPF REASON FOR REFERRAL No Information MEDICATIONS Medication SIG (Take, Route, Frequency, Duration) Notes Start Date End Date Status Valsartan-hydroCHLOROthiazi de 320-12.5 MG TAKE 1 TABLET DAILY for 90 Active Sildenafil Citrate 100 MG TAKE ONE-HALF TABLET BY MOUTH ONCE DAILY IF NEEDED for 60 Active Atorvastatin Calcium 20 MG TAKE 1 TABLET DAILY for 90 Active Esomeprazole Magnesium 40 MG TAKE 1 CAPSULE ONCE DAILY for 90 Active Vitamin D 50 MCG (1999 UT) 1 tablet Oral ly Once a day Active Famotidine 20 MG 1 tablet at bedtime as needed Orally Once a day for 30 day(s) Active Betamethasone Dipropionate 0.05 % 1 application Externally Once a day 08/08/2019 Active Lansoprazole 30 MG 1 capsule Orally [...] 3 days for 14 days 01/28/2022 Unknown IMMUNIZATIONS Vaccine Route Administration Date Status Comme nts Flu Vaccine IM Intramuscular 04/25/2014 Administered zFluzone Quadrivalent IM Intramuscular 04/24/2015 Administered Fluarix Quadrivalent IM Intramuscular 02/26/2016 Adminbeba red Fluarix Quadrivalent IM Intramuscular 03/10/2017 Adminbeba red TDaP IM Intramuscular 12/29/2017 Administered pt was given the vaccine at [facility] in [place] Fluarix Quadrivalent IM Intramuscular 03/15/2018 Adminbeba red Fluarix Quadrivalent IM Intramuscular 02/15/2019 Adminbeba red Tetanus Unknown 12/29/2017 Administered Fluarix Quadrivalent IM Intramuscular 03/05/2020 Adminmickeye red Covid Vaccine Unknown 07/23/2020 Administered Moderna SARS-COV-2 Moderna Unknown 08/20/2020 Administered Fluarix Quadrivalent IM Intramuscular 04/01/2021 Adminbeba red SARS-COV-2 Moderna Unknown 06/15/2021 Administered Fluarix Quadrivalent IM Intramuscular 04/21/2022 Adminbeba boss Fluarix Quadrivalent - 150 IM Intramuscular 06/22/2023 Administered Fluarix Quadrivalent - 150 IM Intramuscular 03/28/2024 Administered Shingrix Unknown 02/14/2019 Refused PPSV23 (Pnemovax) Unknown 08/02/2019 Refused PPSV23 (Pnemovax) Unknown 02/11/2021 Refused Tetanus Unknown 12/29/2017 Pending SOCIAL HISTORY Tobacco Use: Social History Observation Description Date Details (start date - stop date) Former Smoker NA - NA Sex Assigned At : Social History Observation Description Sex Assigned At Unknown Tobacco Use/Smoking Question Answer Notes Patient is [...] Never (0 point) Points 1 Interpretation Negative PROBLEMS Problem Type ICD Code Onset Dates Problem Status W/U Status Risk SNOMED Code Notes Problem Acid reflux (K21.9) Active confirmed Acid reflux (816285499) Problem Thyroid nodule (E04.1) Active confirmed 230345285 Problem Vitamin D deficiency (E55.9) Active confirmed Vitamin D deficiency (38979231) Problem Mixed hyperlipidemia (E78.2) Active confirmed 169273205 Problem Essential hypertension (I10) Active confirmed 36858594 Problem Intrinsic eczema (L20.84) Active confirmed 48108426 Problem Vasculogenic erectile dysfunction, 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 045127894 Problem Avascular necrosis (M87.00) Active confirmed 128089312 VITAL SIGNS Blood pressure diastolic 60 mm Hg 12/28/2023 Height 66.5 in 12/28/2023 Blood pressure systolic 102 mm Hg 12/28/2023 Weight 166 lbs 12/28/2023 BMI 26.39 kg/m2 12/28/2023 Encounters Encounter Location Date Provider Diagnosis Yaya Galeano MD [address] [place] [phone] 12/28/2023 Yaya Galeano Essential hypertensi on I10 ; Annual physical exam Z00.00 ; Avascular necrosis M87.00 ; Mixed hyperlipidemia E78.2 ; Vitamin D deficiency E55.9 ; Acid reflux K21.9 ; Colon cancer screening Z12.11 and Depression screening Z13.31 Yaya Galeano MD [address] [place] [id number] 12/21/2023 Yaya Galeano Blood tests for routine general physical examination Z00.00 ; Essential hypertension I10 ; Mixed hyperlipidemia E78.2 and Vitamin D deficiency E55.9 Yaya Galeano MD [address] [place] [id number] 06/11/2023 Yaya Galeano Mixed hyperlipidemia E78.2 Yaya Galeano MD [address] [place] [id number] 05/20/2024 Yaya Galeano Mixed hyperlipidemia E78.2 Yaya Galeano MD [address] [place] [id number] 03/28/2024 Yaya Galeano Encounter for immunization Z23 Yaya Galeano MD [address] [place], [place] [phone] 06/22/2023 Yaya Galeano Essential hypertensi on I10 ; Mixed hyperlipidemia E78.2 and Encounter for immunization Z23 ASSESSMENTS Encounter Date Diagnosis Assessment Notes Treatment Notes Treatment Clinical Notes 12/28/2023 Annual physical exam (ICD-10 - Z00.00) labs reviewed and discussed with patient 12/28/2023 Essential hypertension (ICD-10 - I10) doing well on meds, will cntinue current regiment 12/21/2023 Essential hypertension (ICD-10 - I10) 12/21/2023 Blood tests for routine general physical examination (ICD-10 - Z00.00) 06/11/2023 Mixed hyperlipidemia (ICD-10 - E78.2) 05/20/2024 Mixed hyperlipidemia (ICD-10 - E78.2) 03/28/2024 Encounter for immunization (ICD-10 - Z23) 06/22/2023 Mixed hyperlipidemia (ICD-10 - E78.2) stable, will continue current regiment 06/22/2023 Essential hypertension (ICD-10 - I10) doing great. has spent 2 months in hospital at his 's bedside, will continue current regiment 12/28/2023 Avascular necrosis (ICD-10 - M87.00) has a little tenderness with walking, will continue to monitor 12/21/2023 Mixed hyperlipidemia (ICD-10 - E78.2) 06/22/2023 Encounter for immunization (ICD-10 - Z23) flu vaccine administered 12/28/2023 Mixed hyperlipidemia (ICD-10 - E78.2) stable, will continue current regiment 12/21/2023 Vitamin D deficiency (ICD-10 - E55.9) 12/28/2023 Vitamin D deficiency (ICD-10 - E55.9) stable, will continue current regiment 12/28/2023 Acid reflux (ICD-10 - K21.9) stable, will continue curren regiment 12/28/2023 Colon cancer screening (ICD-10 - Z12.11) no stool , sent hme with cards to return to office when completed 12/28/2023 Depression screening (ICD-10 - Z13.31) negative screen PLAN OF TREATMENT Pending Test Test Name Order Date Electrocardiogram (EKG) 03/29/2018 Electrocardiogram (EKG) 05/05/2019 Occult Blood, Stool, Guaiac 03/29/2018 MRI SHOULDER RT W&WO CONTRAST 05/06/2021 Liver Panel 05/20/2024 Lipid Panel with Reflex 05/20/2024 MR shoulder RT wo con 05/07/2021 US biopsy thyroid 01/20/2023 US thyroid 10/21/2021 US thyroid 01/02/2022 US thyroid 12/15/2022 Next Appt Details Provider Name:Yaya Caicedo Yolanda ier, 05/27/2024 09:15:00 AM, [address] [place] [address], [address], [place], [place], [phone], Provider Name:Yaya Caicedo Yolanda ier, 12/23/2024 07:15:00 AM, [address] [place] [address], [address], [place], [place], [phone], Provider Name:Yaya Caicedo Yolanda ier, 12/30/2024 08:30:00 AM, [address] [place] [address] Drive, [address], [place], [place], [phone], Insurance Providers Payer Name Payer Address Payer Phone Subscriber Number Group Number Insured Name Patient Relationship to Insured Coverage Start Date Coverage End Date [employer] [address] [place], [place] [phone] [id number] Italian, Christopher Self - patient is the insured MEDICAL (GENERAL) HISTORY Medical History History ICD Code Endoscopy, 10 years ago, Dr. Villa colonoscopy - 07/05/[address] Villa hy perplastic polyp due in 10 years thyroid nodule biopsy negative Annual physical exam
--- OUTSIDE RECORDS SUMMARY | 2024-05-20 13:06 | XMS_ITS ---
Author Organization Yaya Galeano MD Address [address] [place], [place] [id number] Care Team Providers Care Trailer Assembler Name Role Phone Yaya Galeano Primary Care Provider ALLERGIES Allergen (clinical drug ingredient) Drug/Non Drug Allergy documented on EMR Reaction Allergy Type Onset Date Status lisinopril Lisinopril cough Drug Allergy Activ e REASON FOR VISIT ANNUAL EXAM MEDICATIONS Medication SIG (Take, Route, Frequency, Duration) [...] Once a day for 30 day(s) Active SOCIAL HISTORY Tobacco Use: Social History Observation [...] Never (0 point) Points 1 Interpretation Negative VITAL SIGNS BMI 26.39 kg/m2 12/28/2023 Blood pressure systolic 102 mm Hg 12/28/19 24 Blood pressure diastolic 60 mm Hg 024 Height 66.5 in 12/28/2023 Weight 166 lbs 12/28/2023 Encounters Encounter Location Date Provider Diagnosis Yaya Galeano MD [address] [place] [address] [place] [phone] 12/28/2023 Yaya Galeano Essential hypertensi on I10 ; Annual physical exam Z00.00 ; Avascular necrosis M87.00 ; Mixed hyperlipidemia E78.2 ; Vitamin D deficiency E55.9 ; Acid reflux K21.9 ; Colon cancer screening Z12.11 and Depression screening Z13.31 ASSESSMENTS Encounter Date Diagnosis Assessment Notes Treatment Notes Treatment Clinical Notes 12/28/2023 Essential hypertension (ICD-10 - I10) [...] - Z13.31) negative screen PLAN OF TREATMENT Treatment Notes Assessment Notes Essential hypertension doing [...] 6 Months, Reason: bp Provider Name:Yaya hilliard, 05/27/2024 09:15:00 AM, [address] [place] [address], [address], [phone], Provider Name:Yaya hilliard, 12/23/2024 07:15:00 AM, [address] [place] [address], [phone], Provider Name:Yaya hilliard, 12/30/2024 08:30:00 AM, [address] [place] [address], [phone], Progress Notes * Examination Category Sub-Category Detail Notes General Examination GENERAL APPEARANCE: well dev eloped, well nourished, in no acute distress HEAD: normocephalic, atrau matic EYES: pupils equal, round, reactive to light and accommodation, sclera non- icteric EARS: normal THROAT: clear NECK/THYROID: neck supple, [...] sent with cards ORAL CAVITY: mucosa moist History and Physical Notes * HPI (History of Present Illness) Category Sub-Category Detail Notes Depression Screening PHQ-9 Little inte rest or [...] Total Score: 0 Interpretation and Intervention Depression Mahesh burns Findings: Negative Follow-Up for Depression: : review [...] Have you had any falls with injury in the past year?: No Have you had two or more falls in the st year?: No Communication Needs Communication Needs Does the patient have a hearing impairment: Yes ?If yes, what is the hearing impairment? : Hard of hearing, Hearing Aids Does the patient have a vision impairmen t?: Yes ?If yes, what is the vision impairment?: Glasses Does the patient have a cognition impair ment?: No
[2024-05-20 13:44] LABS: Albumin Level 4.1 g/dL (3.5-5.0); Alkaline Phosphatase 95 U/L (39-117); Aspartate Amino Transferase 34 U/L (5-37); Bilirubin Direct 0.3 mg/dL (0.0-0.5); Bilirubin Total 0.8 mg/dL (0.0-1.0); Cholesterol 131 mg/dL (<200); HDL Cholesterol 44 mg/dL (>40); LDL Cholesterol Calculated 69 mg/dL (<100); Total Protein 6.7 g/dL (6.5-8.0); Triglycerides 90 mg/dL (<150)
[2024-05-20 13:58] LABS: Reflex LDLD? No
[2024-05-20 14:11] LABS: Alanine Aminotransferase 33 U/L (0-40)
== END 2024-05-20 13:04 | disposition home or self-care (01) ==
LOC: HO.LNP 13:03
PROVIDERS: Visit Provider Internal Medicine
DX: E78.2 Mixed hyperlipidemia (principal)
CPT/HCPCS: 80061; 80076

== ENCOUNTER 2024-12-23 10:13 | Outpatient (REF) | payer MEDICARE, SELFPAY ==
[2024-12-23 10:20] LABS: MANUAL DIFF FLAG NO
[2024-12-23 10:25] LABS: Hematocrit 40.4 % (42.0-52.0); Hemoglobin 14.3 g/dl (14.0-18.0); Imm Gran Abs Auto 0.04 X10*3/uL (0.00-0.03); Imm Gran Pct Auto 0.7 % (0.0-0.4); Lymphocytes Absolute Auto 2.1 X10*3/uL (1.2-4.9); Mean Corpuscular HGB Conc 35.4 g/dl (31.0-36.0); Mean Corpuscular Hemoglobin 32.8 pg (27.0-33.0); Mean Corpuscular Volume 92.7 fL (80.0-98.0); NRBC Abs Auto 0.000 X10*3/uL (0.0-0.012); NRBC Pct Auto 0.0 /100WBC (0.0-0.2); Platelet Count 327 X10*3/uL (160-400); Red Blood Count 4.36 X10*6/uL (4.60-5.80); White Blood Count 6.1 X10*3/uL (4.8-10.8)
--- OUTSIDE RECORDS SUMMARY | 2024-12-23 10:32 | XMS_ITS | Encounter Summary ---
Author Organization [facility] Address [address] [facility] [address] [place] [address] Phone Care Team Providers Care Hat Brusher Machine Name Role Phone Yaya Galeano MD Primary Care Provider Encounter Details Date Type Department Care Team (Late st Contact Info) Description 05/19/2019 Procedure Pass [facility] [address] [place] [address] Social History Tobacco Use Types Packs/Day Years Used Date Smoking Tobacco: Former Cigarettes 0.5 10 0 06/01/1997 - 06/01/2007 Smokeless Tobacco: Never Alcohol Use Standard Drinks/Week Comments Not Currently 4 (1 standard drink = 0.6 oz pur e alcohol) Sex and Gender Information Value Date Recorded Sex Assigned at Not on file Legal Sex Male 12:21 PM EDT Gender Identity Not on file Sexual Orientation Not on file documented as of this encounter Plan of Treatment Not on file documented as of this encounter Visit Diagnoses Not on filedocumented in this encounter Care Teams Hat Brusher Machine Relationship Specialty Start Date End Date Yaya Galeano MD [address] [place] [address] [place] [id number] PCP - General Internal Medicine 02/28/19 documented as of this encounter Additional Source Comments The information contained in this document represents components of the legal health record. It is not the complete legal health record.[facility]
--- OUTSIDE RECORDS SUMMARY | 2024-12-23 10:32 | XMS_ITS | Patient Health Record ---
Author Organization Yaya Galeano MD Address [address] [place], [place] [phone] Care Team Providers Care Farrowing Manager Name Role Phone Yaya Galeano Primary Care Provider Allergies Allergen (clinical drug ingredient) Drug/Non Drug Allergy documented on EMR Reaction Allergy Type Onset Date Status lisinopril Lisinopril cough Drug Allergy Activ e Results Component Value Reference Range Notes Liver Panel Reviewed date:05/20/2024 04:27:52 PM Interpretation: Performing Lab:[facility], [address] [place] [phone] Notes/Report: Bilirubin Total 0.8 0.0-1.0 mg/dL Bilirubin Direct 0.3 0.0-0.5 mg/dL Aspartate Amino Transferase 34 5-37 U/L Alanine Aminotransferase 33 0-40 U/L Total Protein 6.7 6.5-8.0 g/dL Albumin Level 4.1 3.5-5.0 g/dL Alkaline Phosphatase 95 39-117 U/L Lipid Panel with Reflex Reviewed date:05/20/2024 04:27:32 PM Interpretation: Performing Lab:[facility], [address] [place] [phone] Notes/Report: Triglycerides 90 <150 mg/dL Desirable Triglyceride: [...] disease. Complete Blood Count Auto Di ff (Not yet reviewed by provider) Interpretation: Performing Lab:[facility], [address] [place] [phone] Notes/Report: White Blood Count 6.1 4.8-10.8 X10*3/uL [...] X10*3/uL NRBC Abs Auto 0.000 0.0-0.012 X10*3/uL Barbara Kovacs Reviewed date:05/20/2024 04:27:24 PM Interpretation: Performing Lab:[facility], [address] [place] [phone] Notes/Report: Barbara Kovacs See Note Specimen held untested for 24 hours; Call to request Chemistry testing. Reason For Referral No Information Medications Medication SIG (Take, Route, Frequency, Duration) Notes Start Date End Date Status Zithromax Z-James 250 MG 2 tablet on the irst day, then 1 tablet daily for 4 days Orally Once a day for 5 day(s) 06/09/2024 Active Famotidine 20 MG 1 tablet at bedtime as needed Orally Once a day for 30 day(s) Active Sildenafil Citrate 100 MG TAKE ONE-HALF TABLET BY MOUTH ONCE DAILY IF NEEDED for 60 Active Vitamin D 50 MCG (1999 UT) 1 tablet Oral ly Once a day Active Betamethasone Dipropionate 0.05 % 1 application Externally Once a day 08/08/2019 Active Esomeprazole Magnesium 40 MG TAKE 1 CAPSULE DAILY for 90 Active Atorvastatin Calcium 20 MG TAKE 1 TABLET DAILY for 90 Active Benadryl Allergy 25 MG 1 tablet at bedti me as needed Orally Once a day for 30 day(s) Active Valsartan-hydroCHLOROthiazi de 320-12.5 MG TAKE 1 TABLET DAILY for 90 Active Immunizations Vaccine Route Administration Date Status Comme nts Flu Vaccine IM Intramuscular 04/25/2014 Administered zFluzone Quadrivalent IM Intramuscular 04/24/2015 Administered Fluarix Quadrivalent IM Intramuscular 02/26/2016 Administe red Fluarix Quadrivalent IM Intramuscular 03/10/2017 Administe red TDaP IM Intramuscular 12/29/2017 Administered pt was given the vaccine at [facility] in [place] Fluarix Quadrivalent IM Intramuscular 03/15/2018 Administe red Fluarix Quadrivalent IM Intramuscular 02/15/2019 Administe red Tetanus Unknown 12/29/2017 Administered Fluarix Quadrivalent IM Intramuscular 03/05/2020 Administe red Covid Vaccine Unknown 07/23/2020 Administered Moderna SARS-COV-2 Moderna Unknown 08/20/2020 Administered Fluarix Quadrivalent IM Intramuscular 04/01/2021 Administe red SARS-COV-2 Moderna Unknown 06/15/2021 Administered Fluarix Quadrivalent IM Intramuscular 04/21/2022 Administe red Fluarix Quadrivalent - 150 IM Intramuscular 06/22/2023 Administered Fluarix Quadrivalent - 150 IM Intramuscular 03/28/2024 Administered Shingrix Unknown 02/14/2019 Refused PPSV23 (Pnemovax) Unknown 08/02/2019 Refused PPSV23 (Pnemovax) Unknown 02/11/2021 Refused Tetanus Unknown 12/29/2017 Pending Social History Tobacco Use: Social History Observation [...] Never (0 point) Points 1 Interpretation Negative Problems Problem Type SNOMED Code ICD Code Onset Dates Problem Status W/U Status Risk Notes Problem Acid reflux (855538901) Acid reflux (K21.9) Active confirmed Problem 047191885 Thyroid nodule (E04.1) Active confirmed Problem Vitamin D deficiency (E55.9) Active confirmed Problem 716236721 Mixed hyperlipidemia (E78.2) Active confirmed Problem 57788331 Essential hypertension (I10) Active confirmed Problem 32753523 Intrinsic eczema (L20.84) Active confirmed Problem 519621085 Vasculogenic erectile dysfunction, 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 Problem 101628601 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 Vital Signs Blood pressure diastolic 70 mm Hg 05/27/2024 awilda ght is down 5 pounds since 12-28-23 Height 66.5 in 06/09/2024 weight is 160 B P not taken at home Blood pressure systolic 104 mm Hg 05/27/2024 weig ht is down 5 pounds since 12-28-23 Weight 160 lbs 06/09/2024 weight is 160 B P not taken at home BMI 25.44 kg/m2 06/09/2024 weight is 160 B P not taken at home Encounters Encounter Location Date Provider Diagnosis Yaya Galeano MD [address] [place] [id number] 05/20/2024 Yaya Galeano Mixed hyperlipidemia E78.2 Yaya Galeano MD [address] [place] [address] [id number] 12/23/2024 Yaya Galeano Blood tests for routine general physical examination Z00.00 ; Essential hypertension I10 ; Mixed hyperlipidemia E78.2 and Vitamin D deficiency E55.9 Yaya Galeano MD [address] [place] [id number] 12/28/2023 Yaya Galeano Essential hypertensi on I10 ; Annual physical exam Z00.00 ; Avascular necrosis M87.00 ; Mixed hyperlipidemia E78.2 ; Vitamin D deficiency E55.9 ; Acid reflux K21.9 ; Colon cancer screening Z12.11 and Depression screening Z13.31 Yaya Galeano MD [address] [place] [id number] 03/28/2024 Yaya Galeano Encounter for immunization Z23 Yaya Galeano MD [address] [facility] [address] [place] [id number] 05/27/2024 Yaya Galeano Mixed hyperlipidemia E78.2 and Essential hypertension I10 Yaya Galeano MD [address] [place] [id number] 06/09/2024 Yaya Galeano Acute recurrent frontal sinusitis J01.11 Assessments Encounter Date Diagnosis (ICD Code) Assessment Notes Treatment Notes Treatment Clinical Notes Section Notes 05/20/2024 Mixed hyperlipidemia (ICD-10 - E78.2) 12/23/2024 Blood tests for routine general physical examination (ICD-10 - Z00.00) 12/28/2023 Essential hypertension (ICD-10 - I10) doing well on meds, will cntinue current regiment 12/28/2023 Annual physical exam (ICD-10 - Z00.00) labs reviewed and discussed with patient 03/28/2024 Encounter for immunization (ICD-10 - Z23) 05/27/2024 Mixed hyperlipidemia (ICD-10 - E78.2) doing well,at goal, will cntinue current regiment 05/27/2024 Essential hypertension (ICD-10 - I10) well controlled, at goal, will continue current regiment 06/09/2024 Acute recurrent frontal sinusitis (ICD-10 - J01.11) 12/23/2024 Essential hypertension (ICD-10 - I10) 12/28/2023 Avascular necrosis (ICD-10 - M87.00) has a little tenderness with walking, will continue to monitor 12/23/2024 Mixed hyperlipidemia (ICD-10 - E78.2) 12/28/2023 Mixed hyperlipidemia (ICD-10 - E78.2) stable, will continue current regiment 12/23/2024 Vitamin D deficiency (ICD-10 - E55.9) 12/28/2023 Vitamin D deficiency (ICD-10 - E55.9) stable, will continue current regiment 12/28/2023 Acid reflux (ICD-10 - K21.9) stable, will continue curren regiment 12/28/2023 Colon cancer screening (ICD-10 - Z12.11) no stool , sent hme with cards to return to office when completed 12/28/2023 Depression screening (ICD-10 - Z13.31) negative screen Plan Of Treatment Pending Test Test Name Order Date Electrocardiogram (EKG) 05/05/2019 MRI SHOULDER RT W&WO CONTRAST 05/06/2021 Complete Blood Count Auto Diff Comprehensive [place]. Panel Fast Lipid Panel 12/23/2024 PSA,Total (Free>4and<10) 12/23/2024 Vitamin D 25-OH Total 12/23/2024 MR shoulder RT wo con 05/07/2021 US biopsy thyroid 01/20/2023 US thyroid 01/02/2022 US thyroid 10/21/2021 US thyroid 12/15/2022 UA ClnCatch+Micro w/rflx Cult 12/23/2024 Next Appt Details Provider Name:Yaya perdomor, 12/30/2024 08:30:00 AM, [address] [place] [address], [address], [place], [place], [phone], Insurance Providers Payer Name Payer Address Payer Phone Subscriber Number Group Number Insured Name Patient Relationship to Insured Coverage Start Date Coverage End Date [facility] [address] [place], [place] [phone] [id number] [place], Christopher Self - patient is the insured Medical (General) History Medical History History ICD Code Endoscopy, 10 years ago, Dr. Villa colonoscopy - 07/05/[address] Villa hy perplastic polyp due in 10 years thyroid nodule biopsy negative Annual physical exam
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
[2024-12-23 10:52] LABS: Appearance Urine Clear; Glucose Urine UA Negative (Negative); PH 7.5 (5.0-9.0); Specific Gravity - Urine 1.015 (1.005-1.025)
[2024-12-23 10:53] LABS: Alanine Aminotransferase 35 U/L (0-40); Albumin Level 4.5 g/dL (3.5-5.0); Alkaline Phosphatase 102 U/L (39-117); Anion Gap 12 (12-20); Aspartate Amino Transferase 38 U/L (5-37); Blood Urea Nitrogen 11 mg/dL (9-16); Calcium 9.1 mg/dL (8.4-10.2); Carbon Dioxide 30 mmol/L (22-29); Chloride 96 mmol/L (96-108); Cholesterol 156 mg/dL (<200); Estimated Glomerular Filt Rate > 60; HDL Cholesterol 57 mg/dL (>40); Potassium 3.8 mmol/L (3.3-5.1); Sodium 134 mmol/L (135-145); Total Protein 6.6 g/dL (6.5-8.0); Triglycerides 106 mg/dL (<150)
[2024-12-23 10:57] LABS: PSA,Total (Free>4and<10) 0.60 ng/mL (0.00-4.00)
== END 2024-12-23 10:14 | disposition home or self-care (01) ==
LOC: HO.LNP 10:13
PROVIDERS: Visit Provider Internal Medicine
DX: Z00.00 Encounter for general adult medical examination without abnormal findings (principal); I10 Essential (primary) hypertension; E78.2 Mixed hyperlipidemia; E55.9 Vitamin D deficiency, unspecified
CPT/HCPCS: 80053; 80061; 81001; 82306; 84153; 85025

== ENCOUNTER 2025-04-04 08:24 | Outpatient (REF) | payer SELFPAY ==
--- OUTSIDE RECORDS SUMMARY | 2023-12-21 03:00 | XMS_ITS ---
Author Organization Yaya Galeano MD Address [address] [place], [place] [id number] Care Team Providers Care Sales Analytics Manager Name Role Phone Yaya Galeano Primary Care Provider Results Component Value Reference Range Notes Complete Blood Count Auto Di ff Reviewed date:12/21/2023 12:37:16 PM Interpretation: Performing Lab:[facility], [address] [place] [phone] Notes/Report: White Blood Count 6.8 4.8-10.8 X10*3/uL Red Blood Count 4.44 4.60-5.80 X10*6/uL Hemoglobin 14.5 14.0-18.0 g/dl Hematocrit 41.6 42.0-52.0 % Mean Corpuscular Volume 93.7 80.0-98.0 fL Mean Corpuscular Hemoglobin 32.7 27.0-33.0 pg Mean Corpuscular HGB Conc 34.9 31.0-36.0 g/dl Red Cell Distribution Width 12.6 11.0-16.0 % Platelet Count 317 160-400 X10*3/uL Mean Platelet Volume 9.1 9.4-12.4 fL Neutrophils Percent Auto 46.7 45-73 % Imm Gran Pct Auto 0.3 0.0-0.4 % Lymphocytes Percent Auto 35.8 20-40 % Monocytes Percent Auto 11.6 2-11 % Eosinophils Percent Auto 4.0 0-4 % Basophils Percent Auto 1.6 0-2 % NRBC Pct Auto 0.0 0.0-0.2 /100WBC Neutrophils Absolute Auto 3.2 2.0-8.3 x10*3/u L Imm Gran Abs Auto 0.02 0.00-0.03 X10*3/uL Lymphocytes Absolute Auto 2.4 1.2-4.9 X10*3/u L Monocytes Absolute Auto 0.8 0.1-1.2 X10*3/uL Eosinophils Absolute Auto 0.3 0.0-0.4 X10*3/u L Basophils Absolute Auto 0.1 0.0-0.2 X10*3/uL NRBC Abs Auto 0.000 0.0-0.012 X10*3/uL Comprehensive [place]. Panel Fa st Reviewed date:12/21/2023 12:40:43 PM Interpretation: Performing Lab:[facility], [address] [place] [phone] Notes/Report: Sodium 139 135-145 mmol/L Potassium 3.7 3.3-5.1 mmol/L Chloride 103 96-108 mmol/L Carbon Dioxide 27 22-29 mmol/L Anion Gap 13 12-20 Blood Urea Nitrogen 14 9-16 mg/dL Creatinine 1.14 0.5-1.4 mg/dL Estimated Glomerular Filt Rate > 60 NOTE: For -Moroccan individuals, multiply the result by 1.210. Chronic Kidney Disease: Estimated GFR < 60 mL/min/1.73m2 Severe Kidney Disease: Estimated GFR < 15 mL/min/1.73m2 Glucose Fasting 92 60-99 mg/dL Calcium 9.6 8.4-10.2 mg/dL Bilirubin Total 0.7 0.0-1.0 mg/dL Aspartate Amino Transferase 30 5-37 U/L Alanine Aminotransferase 30 0-40 U/L Total Protein 7.0 6.5-8.0 g/dL Albumin Level 4.3 3.5-5.0 g/dL Alkaline Phosphatase 98 39-117 U/L Lipid Panel Reviewed date:12/21/2023 12:37:48 PM Interpretation: Performing Lab:[facility], [address] [place] [phone] Notes/Report: Triglycerides 158 <150 mg/dL Desirable Triglyceride: less than 150 mg/dL Borderline High Triglyceride 150-199 mg/dL High Triglyceride: 200-499 mg/dL Very High Triglyceride: greater than or equal to 5OO mg/dL Cholesterol 164 <200 mg/dL Desirable Cholesterol: less than 200 mg/dL Borderline High Cholesterol: 200-239 mg/dL High Cholesterol: greater than 239 mg/dL LDL Cholesterol Calculated 86 <100 mg/dL Desirable LDL: less than 100 mg/dL Near Optimal/Above Optimal LDL: 110-129 mg/dL Borderline High LDL: 130-159 mg/dL High LDL: 160-189 mg/dL Very High LDL: greater than or equal to 190 mg/dL HDL Cholesterol 47 >40 mg/dL Desirable HDL: greater than 40 mg/dL Note: This HDL assay may give artificially low results in patients with liver disease. PSA,Total (Free>4and<10) Reviewed date:12/21/2023 12:34:20 PM Interpretation: Performing Lab:[facility], [address] [place] [phone] Notes/Report: PSA,Total (Free>4and<10) 0.68 0.00-4.00 ng/mL A Free PSA was not performed: The percentage of Free PSA can be used to enhance the differentiation of prostate cancer from benign prostatic disease in subjects whose PSA levels are between 4.0 and 10.0 ng/mL. For subjects whose PSA levels are below 4.0 or above 10.0 ng/mL, the risk of prostate cancer is determined on the basis of the PSA alone. Therefore the % Free PSA is recommended only for those subjects whose PSA levels are between 4.0 and 10.0 ng/mL. PSA methodology: Ingram Alinity i Chemiluminescent Microparticle Immunoassay (CMIA) Vitamin D 25-OH Total Reviewed date:12/21/2023 12:36:18 PM Interpretation: Performing Lab:[facility], [address] [place] [phone] Notes/Report: Vitamin D 25-OH Total 55.4 >30 ng/mL Health Based Reference Values* < 20 ng/mL Deficient 20-30 ng/mL Insufficient > 30 ng/mL Sufficient *Ivanna SCHNEIDER. N Engl J Med. 2007;357:266-280 Care must be taken in interpreting Vitamin D results from different laboratories and methodologies. Published data demonstrated that results from patients undergoing hemodialysis may show a negative bias when tested with various automated 25-OH vitamin D assays when compared to LC-MS/MS. When testing samples from patients whose predominant form of Vitamin D is Vitamin D2, such as patients receiving Vitamin D2 supplementation, results that are subtherapeutic should be confirmed with another method such as LC-MS/MS. UA ClnCatch+Micro w/rflx Cul t Reviewed date:12/21/2023 05:38:29 PM Interpretation: Performing Lab:[facility], [address] [place] [phone] Notes/Report: Urine, Clean Catch Color Urine Yellow Appearance Urine Clear PH 6.0 5.0-9.0 Glucose Urine UA Negative Negative mg/dL Urine Blood Negative Negative Specific [place] - Urine 1.025 1.005-1.025 Urine Protein Trace Neg-Trace mg/dL Urine Ketones Negative Negative mg/dL Nitrite Urine Negative Negative Leukocyte Esterase Urine Negative Negative RBC Urine 0-2 0-2 /HPF WBC Urine 0-5 0-5 /HPF Squamous Epithelial Cell Urine 0-2 0-2 /HPF Bacteria Urine None Seen None Seen Hyaline Casts Urine 0-2 0-2 /LPF REASON FOR VISIT FASTING LABS Encounters Encounter Location Date Provider Diagnosis Yaya Galeano MD [address] [place] [address] [address] [place], [place] [phone] 12/21/2023 Yaya Galeano Blood tests for routine general physical examination Z00.00 ; Essential hypertension I10 ; Mixed hyperlipidemia E78.2 and Vitamin D deficiency E55.9 Assessments Encounter Date Diagnosis (ICD Code) Assessment Notes Treatment Notes Treatment Clinical Notes Section Notes 12/21/2023 Blood tests for routine general physical examination (ICD-10 - Z00.00) 12/21/2023 Essential hypertension (ICD-10 - I10) 12/21/2023 Mixed hyperlipidemia (ICD-10 - E78.2) 12/21/2023 Vitamin D deficiency (ICD-10 - E55.9) Plan Of Treatment Next Appt Details Provider Name:Yaya Guerrero ier, 07/03/2025 08:00:00 AM, [address], Suite [facility], [place], [place], [phone], Provider Name:Yaya Gurerero ier, 07/18/2025 10:15:00 AM, [address] [facility], [address] [facility], [place], [place], [phone], Provider Name:Yaya Guerrero ier, 12/25/2025 07:45:00 AM, [address], [address], [place], [place], [phone], Provider Name:Yaya Guerrero ier, 01/01/2026 08:30:00 AM, [address] [facility], [address] [facility], [place], [place], [phone], Progress Notes * Casey CABRERADOB:[birth year] (69 yo M)Acc No.[id number]:12/21/2023 Progress Note Patient: Casey SALDIVAR Provider: Elaina Galeano MD :1955 A ge:68 Y S ex:Male Date:12/21/2023 Address:[address] [place], [place] [phone] Subjective: * Chief Complaints: * 1 . FASTING LABS. * Medical History: Objective: * Vitals: Assessment: * Assessment: 1. B lood tests for routine general physical examination - Z00.00 (Primary) 2 .?Essential hypertension - I10 3 . M ixed hyperlipidemia - E78.2 ?4. V itamin D deficiency - E55.9 Plan: * Treatment: 2. E ssential hypertension L AB: Complete Blood Count Auto Diff (Collection Date & Time - 12/21/2023 08:00 AM) L AB: Comprehensive [place]. Panel Fast (Collection Date & Time - 12/21/2023 08:00 AM) L AB: Lipid Panel (Collection Date & Time - 12/21/2023 08:00 AM) L AB: PSA,Total (Free>4and<10) (Collection Date & Time - 12/21/2023 08:00 AM) L AB: Vitamin D 25-OH Total (Collection Date & Time - 12/21/2023 08:00 AM) L AB: UA ClnCatch+Micro w/rflx Cult (Collection Date & Time - 12/21/2023 08:00 AM) 3. M ixed hyperlipidemia L AB: Complete Blood Count Auto Diff (Collection Date & Time - 12/21/2023 08:00 AM) L AB: Comprehensive [place]. Panel Fast (Collection Date & Time - 12/21/2023 08:00 AM) L AB: Lipid Panel (Collection Date & Time - 12/21/2023 08:00 AM) L AB: PSA,Total (Free>4and<10) (Collection Date & Time - 12/21/2023 08:00 AM) L AB: Vitamin D 25-OH Total (Collection Date & Time - 12/21/2023 08:00 AM) L AB: UA ClnCatch+Micro w/rflx Cult (Collection Date & Time - 12/21/2023 08:00 AM) 4. V itamin D deficiency L AB: Complete Blood Count Auto Diff (Collection Date & Time - 12/21/2023 08:00 AM) L AB: Comprehensive [place]. Panel Fast (Collection Date & Time - 12/21/2023 08:00 AM) L AB: Lipid Panel (Collection Date & Time - 12/21/2023 08:00 AM) L AB: PSA,Total (Free>4and<10) (Collection Date & Time - 12/21/2023 08:00 AM) L AB: Vitamin D 25-OH Total (Collection Date & Time - 12/21/2023 08:00 AM) L AB: UA ClnCatch+Micro w/rflx Cult (Collection Date & Time - 12/21/2023 08:00 AM) * Procedure Codes: 3 6415 VENIPUNCT, ROUTINE* * * The named appointment provid er may or may not be the originator of this progress note, and it is not deemed complete until electronically signed by the appointment provider. Sign off status: Pending * Provider: Elaina Galeano MD Date: 0 12/21/2023 Generated for Ashli pham/Kristie/Liliana on: 1 06/04/2024 08:48 AM EST
--- OUTSIDE RECORDS SUMMARY | 2023-12-28 04:30 | XMS_ITS ---
Author Organization Yaya Galeano MD Address [address] [place], [place] [phone] Care Team Providers Care Warp Picker Name Role Phone Yaya Galeano Primary Care [...] Location Date Provider Diagnosis Yaya Galeano MD [address] [place] [address] [place] [phone] 12/28/2023 Yaya Galeano Essential hypertensi on I10 [...] bp Provider Name:Yaya hilliard, 07/03/2025 08:00:00 AM, [address] [place] [address], [address], [phone], Provider Name:Yaya hilliard, 07/18/2025 10:15:00 AM, [address] [place] [address], [address], [phone], Provider Name:Yaya hilliard, 12/25/2025 07:45:00 AM, [address] [place] [address], [address], [phone], Provider Name:Yaya perdomor, 01/01/2026 08:30:00 AM, [address] [place] [address], [address], [phone], Progress Notes * Melony CABRERA:[birth year] (68 yo M)Acc No.[id number]:12/28/2023 Progress Notes Patient: E ngCasey ruiz Provider: Elaina Galeano MD :1955 A ge:68 Y S ex:Male Date:12/28/2023 Address: [address] [id number] Subjective: * Chief Complaints: * A NNUAL [...] Auto 0.000 0.0-0.012 - X10*3/uL L ab:Comprehensive [place]. Panel Fast (Order Date - 12/21/2023) (Collection [...] 12/28/2023 Generated for Ashli pham/Kristie/Derrekitting on: 1 06/04/2024 08:49 AM EST History and Physical Notes * HPI [...]
--- OUTSIDE RECORDS SUMMARY | 2024-03-28 06:00 | XMS_ITS ---
Author Organization Yaya Galeano MD Address [address] [place] [phone] Care Team Providers Care Paper Gluing Operator Name Role Phone Yaya Galeano Primary Care Provider REASON FOR VISIT flu shot Immunizations Vaccine Route Administration Date Status Comme nts Fluarix Quadrivalent - 150 IM Intramuscular 03/28/2024 Adm inistered Encounters Encounter Location Date Provider Diagnosis Yaya Galeano MD [address] [place] [phone] 03/28/2024 Yaya Galeano Encounter for immunization Z23 Assessments Encounter Date Diagnosis (ICD Code) Assessment Notes Treatment Notes Treatment Clinical Notes Section Notes 03/28/2024 Encounter for immunization (ICD-10 - Z23) Plan Of Treatment Next Appt Details Provider Name:Yaya hilliard, 07/03/2025 08:00:00 AM, [address] [facility], [address] [facility], [place], [place], [phone], Provider Name:Yaya hilliard, 07/18/2025 10:15:00 AM, [address], [address], [place], [place], [phone], Provider Name:Yaya hilliard, 12/25/2025 07:45:00 AM, [address], [address], [place], [phone], Provider Name:Yaya Guerrero ier, 01/01/2026 08:30:00 AM, [address] [facility], [address], [place], [phone], Progress Notes * Felipe CABRERAerDOB:[birth year] (68 yo M)Acc No.[id number]:03/28/2024 Progress Note Patient: Casey Boothe Provider: Elaina Galeano MD :1955 A ge:68 Y S ex:Male Date:03/28/2024 Address:[address] [place], [place] [phone] Subjective: * Chief Complaints: * F marcelo [...] 0656 FLU VACCINE NO PRESERV 3 & >15473 IMMUNIZATION ADMIN * * Sign off status: Completed true * Provider: Elaina Galeano MD Date: Generated for Ashli pham/Kristie/Liliana on: 06/04/2024 08:49 AM EST
--- OUTSIDE RECORDS SUMMARY | 2024-05-20 02:15 | XMS_ITS ---
Author Organization Yaya Galeano MD Address [address] [place], [place] [phone] Care Team Providers Care Manager Banquet Name Role Phone Yaya Galeano Primary Care Provider Results Component Value Reference Range Notes Liver Panel Reviewed date:05/20/2024 04:27:52 PM Interpretation: Performing Lab:[facility], [address] [place] [phone] Notes/Report: Bilirubin Total 0.8 0.0-1.0 mg/dL Bilirubin Direct 0.3 0.0-0.5 mg/dL Aspartate Amino Transferase 34 5-37 U/L Alanine Aminotransferase 33 0-40 U/L Total Protein 6.7 6.5-8.0 g/dL Albumin Level 4.1 3.5-5.0 g/dL Alkaline Phosphatase 95 39-117 U/L Lipid Panel with Reflex Reviewed date:05/20/2024 04:27:32 PM Interpretation: Performing Lab:[facility], [address] [place] [phone] Notes/Report: Triglycerides 90 <150 mg/dL Desirable Triglyceride: [...] Location Date Provider Diagnosis Yaya Galeano MD [address] [place] [phone] 05/20/2024 Yaya Galeano Mixed hyperlipidemia E78.2 Assessments Encounter Date Diagnosis (ICD Code) Assessment Notes Treatment Notes Treatment Clinical Notes Section Notes 05/20/2024 Mixed hyperlipidemia (ICD-10 - E78.2) Plan Of Treatment Next Appt Details Provider Name:Yaya hilliard, 07/03/2025 08:00:00 AM, [address] [place] [address], [address], [phone], Provider Name:Yaya hilliard, 07/18/2025 10:15:00 AM, [address] [place] [address], [phone], Provider Name:Yaya hilliard, 12/25/2025 07:45:00 AM, [address] [place] [address], [address], [phone], Provider Name:Yaya hilliard, 01/01/2026 08:30:00 AM, [address] [place] [address], [phone], Progress Notes * Melony CABRERA:[birth year] (69 yo M)Acc No.[id number]:05/20/2024 Progress Note Patient: Casey SALDIVAR Provider: Elaina Galeano MD :1955 A ge:68 Y S ex:Male Date:05/20/2024 Address:[address] [place], [place] [phone] Subjective: * Chief Complaints: * 1 . [...] Date: 07/21/2023 Generated for Ashli pham/Kristie/Derrekitting on: 06/04/2024 08:48 AM EST
--- OUTSIDE RECORDS SUMMARY | 2024-05-27 04:15 | XMS_ITS ---
Author Organization Yaya Galeano MD Address [address] [place], [place] [phone] Care Team Providers Care Rosin Barrel Filler Name Role Phone Yaya Galeano Primary Care Provider Allergies Allergen (clinical drug ingredient) Drug/Non Drug Allergy documented on EMR Reaction Allergy Type Onset Date Status lisinopril Lisinopril cough Drug Allergy Activ e REASON FOR VISIT 6 MOF/U Medications Medication SIG (Take, Route, Frequency, Duration) Notes Start Date End Date Status Vitamin D 50 MCG (1999) 1 tablet Oral ly Once a day Active Esomeprazole Magnesium 40 MG TAKE 1 CAPSULE ONCE DAILY for 90 Active Valsartan-hydroCHLOROthiazi de 320-12.5 MG TAKE 1 TABLET DAILY Active Atorvastatin Calcium 20 MG TAKE 1 TABLET DAILY Active Betamethasone Dipropionate 0.05 % 1 application Externally Once a day 08/08/2019 Active Transderm-Scop 1 MG/3DAYS 1 patch to ski n behind the ear as needed Transdermal every 3 days for 14 days 01/28/2022 Unknown Lansoprazole 30 MG 1 capsule Orally Onc e a day for 30 day(s) Unknown Benadryl Allergy 25 MG 1 tablet at bedti me as needed Orally Once a day for 30 day(s) Unknown Aleve 220 MG 1 tablet with food o r milk as needed Orally every 12 hrs Unknown Famotidine 20 MG 1 tablet at bedtime as needed Orally Once a day for 30 day(s) Active Sildenafil Citrate 100 MG TAKE ONE-HALF TABLET BY MOUTH ONCE DAILY IF NEEDED for 60 Active Vital Signs Blood pressure systolic 104 mm Hg 05/27/20 24 Blood pressure diastolic 70 mm Hg 024 Height 66.5 in 05/27/2024 Weight 161 lbs 05/27/2024 BMI 25.59 kg/m2 05/27/2024 weight is down 5 pounds [facility] 12-28-23 Encounters Encounter Location Date Provider Diagnosis Yaya Galeano MD [address] [place] [phone] 05/27/2024 Yaya Galeano Mixed hyperlipidemia E78.2 and Essential hypertension I10 Assessments Encounter Date Diagnosis (ICD Code) Assessment Notes Treatment Notes Treatment Clinical Notes Section Notes 05/27/2024 Mixed hyperlipidemia (ICD-10 - E78.2) doing well,at goal, will cntinue current regiment 05/27/2024 Essential hypertension (ICD-10 - I10) well controlled, at goal, will continue current regiment Plan Of Treatment Medication Medication Name Sig Start Date Stop Date Notes Valsartan-hydroCHLOROthiazid e 320-12.5 MG TAKE 1 TABLET DAILY Atorvastatin Calcium 20 MG TAKE 1 TABLET DAILY Treatment Notes Assessment Notes Mixed hyperlipidemia doing well,at goal, will cntinue current regiment Essential hypertension well controlled, at goal, will continue current regiment Next Appt Details Provider Name:Yaya hilliard, 07/03/2025 08:00:00 AM, [address] [place] [address], Suite [facility], [place], [place], [phone], Provider Name:Yaya hilliard, 07/18/2025 10:15:00 AM, [address] [place] [address], [address], [phone], Provider Name:Yaya hilliard, 12/25/2025 07:45:00 AM, [address] [place] [address], [place] [address], [place], [place], [phone], Provider Name:Yaya Guerrero ier, 01/01/2026 08:30:00 AM, [address], [address], [place], [place], [phone], Progress Notes * Casey CABRERADOB:[birth year] (68 yo M)Acc No.[id number]:05/27/2024 Progress Notes Patient: Casey Boothe Provider: Elaina Galeano MD :1955 A ge:68 Y S ex:Male Date:05/27/2024 Address:[address] [place], [place] [phone] Subjective: * Chief Complaints: * 6 MOF/U * HPI: S ymptom(s): patient is a 68 yo male here for follow up. has been doing well. * ROS: G eneral/Constitutional: Denies C hills. D enies F atigue. D enies F ever. D enies H eadache. E NT: Patient denies d ecreased sense of smell , any loss of taste , sore throat. D enies S ore throat. R espiratory: Denies C ough. D enies S hortness of breath at rest. D enies S hortness of breath with exertion. G astrointestinal: Denies D iarrhea. D enies N ausea. M usculoskeletal: Patient denies m uscle aches. P eripheral Vascular: Patient denies r ed and blue toes. * Medical History: * Surgical History: * Hospitalization/Major Diagno stic Procedure: * Medications: T akingFamotidine 20 MG Tablet 1 tablet at bedtime as needed Orally Once a dayBetamethasone Dipropionate 0.05 % Cream 1 application Externally Once a dayVitamin D 50 MCG (1999 [place]) Tablet 1 tablet Orally Once a dayEsomeprazole Magnesium 40 MG Capsule Delayed Release TAKE 1 CAPSULE ONCE DAILY Valsartan-hydroCHLOROthiazide 320-12.5 MG Tablet TAKE 1 TABLET DAILY Sildenafil Citrate 100 MG Tablet TAKE ONE-HALF TABLET BY MOUTH ONCE DAILY IF NEEDED Atorvastatin Calcium 20 MG Tablet TAKE 1 TABLET DAILY Taking Famotidine 20 MG Tablet 1 tablet at bedtime as needed Orally Once a dayTaking Betamethasone Dipropionate 0.05 % Cream 1 application Externally Once a dayTaking Vitamin D 50 MCG (2000 [place]) Tablet 1 tablet Orally Once a dayTaking Esomeprazole Magnesium 40 MG Capsule Delayed Release TAKE 1 CAPSULE ONCE DAILY Taking Valsartan-hydroCHLOROthiazide 320-12.5 MG Tablet TAKE 1 TABLET DAILY Taking Sildenafil Citrate 100 MG Tablet TAKE ONE-HALF TABLET BY MOUTH ONCE DAILY IF NEEDED Taking Atorvastatin Calcium 20 MG Tablet TAKE 1 TABLET DAILY UnknownBenadryl Allergy 25 MG Tablet 1 tablet [...] bedtime as needed Orally Once a dayUnknown Transderm-Scop 1 MG/3DAYS Patch 72 Hour 1 patch [...] Verified] Objective: * Vitals: H t: 66.5, Wt:161, BMI:25.59, BP:104/70 weight is down 5 pounds since 12-28-23. * P ast Orders: L ab:Liver Panel (Order Date - 05/20/2024) (Collection Date - 05/20/2024) Value Reference Range Bilirubin Total 0.8 0.0-1.0 - mg/dL Bilirubin Direct 0.3 0.0-0.5 - mg/dL Aspartate Amino Transferase 34 5-37 - U/L Alanine Aminotransferase 33 0-40 - U/L Total Protein 6.7 6.5-8.0 - g/dL Albumin Level 4.1 3.5-5.0 - g/dL Alkaline Phosphatase 95 39-117 - U/L L ab:Lipid Panel with Reflex (Order Date - 05/20/2024) (Collection Date - 05/20/2024) Value Reference Range Triglycerides 90 <150 - mg/dL Cholesterol 131 <200 - mg/dL LDL Cholesterol Calculated 69 <100 - mg/dL HDL Cholesterol 44 >40 - mg/dL * Examination: G eneral Examination: GENERAL APPEARANCE: a lert, well hydrated, in no distress , male. HEAD: n ormocephalic. SKIN: g ood turgor. HEART: r egular rate and rhythm , no murmurs, rubs, gallops. LUNGS: n o wheezes, rales, rhonchi , good air movement , clear to auscultation bilaterally. Assessment: * Assessment: 1. M ixed hyperlipidemia - E78.2 (Primary) 2 . E ssential hypertension - I10 Plan: * Treatment: 2. E ssential hypertension Continue Valsartan-hydroCHLOROthiazide Tablet, 320-12.5 MG, TAKE 1 TABLET DAILY. Notes: well controlled, at goal, will continue current regiment * Procedure Codes: * * Sign off status: Completed true * Provider: Elaina Galeano MD Date: 07/28/2023 Generated for Ashli pham/Kristie/Derrekitting on: 06/04/2024 08:48 AM EST History and Physical Notes * HPI (History of Present Illness) Category Sub-Category Detail Notes Category Not es Symptom(s) patient is a 68 yo male here for follow up. has been doing well. Examination Category Sub-Category Detail Notes Category Not es General Examination GENERAL APPEARANCE: alert, w ell hydrated, in no distress , male HEAD: normocephalic HEART: regular rate and rhy thm , no murmurs, rubs, gallops LUNGS: no wheezes, rales, r honchi , good air movement , clear to auscultation bilaterally SKIN: good turgor
--- OUTSIDE RECORDS SUMMARY | 2024-06-09 10:15 | XMS_ITS ---
Author Organization Yaya Galeano MD Address [address] [place], [place] [phone] Care Team Providers Care Work Car Operator Name Role Phone Yaya Galeano Primary Care Provider Allergies Allergen (clinical drug ingredient) Drug/Non Drug Allergy documented on EMR Reaction Allergy Type Onset Date Status lisinopril Lisinopril cough Drug Allergy Activ e REASON FOR VISIT c/o fatigue, headache, runny nose x 1 week terrible dizziness, Video [phone] Medications Medication SIG (Take, Route, Frequency, Duration) [...] Location Date Provider Diagnosis Yaya Galeano MD [address] [place] [phone] 06/09/2024 Yaya Galeano Acute recurrent frontal sinusitis [...] Details Provider Name:Yaya hilliard, 07/03/2025 08:00:00 AM, [address] [place] [address], [phone], Provider Name:Yaya hilliard, 07/18/2025 10:15:00 AM, [address] [place] [address], [phone], Provider Name:Yaya hilliard, 12/25/2025 07:45:00 AM, [address] [place] [address], [phone], Provider Name:Yaya hilliard, 01/01/2026 08:30:00 AM, [address] [place] [address], [phone], Progress Notes * Melony CABRERA:[birth year] (68 yo M)Acc No.[id number]:06/09/2024 Patient: Casey Boothe Provider: Elaina Galeano MD :1955 A ge:68 Y S ex:Male Date:06/09/2024 [address] [facility] Subjective: * Chief Complaints: * C /o fatigue, headache, runny nose x 1 week terrible dizzinessVideo [phone] * HPI: S ymptom(s): Telehealth L ocation of provider rendering services: [address], [address], L ocation of [...] 0 06/09/2024 Generated for Ashli pham/Kristie/Liliana on: 06/04/2024 08:49 AM EST History and Physical Notes * HPI (History of Present Illness) Category Sub-Category Detail Notes Category Not es Symptom(s) [facility] [address], [...]
--- OUTSIDE RECORDS SUMMARY | 2024-12-23 02:15 | XMS_ITS ---
Author Organization Yaya Galeano MD Address [address] [place], [place] [phone] Care Team Providers Care Cell Tester Name Role Phone Yaay Galeano Primary Care Provider Results Component Value Reference Range Notes Complete Blood Count Auto Di ff Reviewed date:12/23/2024 09:26:23 PM Interpretation: Performing Lab:[facility], [address] [place] [phone] Notes/Report: White Blood Count 6.1 4.8-10.8 X10*3/uL [...] NRBC Abs Auto 0.000 0.0-0.012 X10*3/uL Comprehensive [place]. Panel Fa st Reviewed date:12/23/2024 09:26:57 PM Interpretation: Performing Lab:[facility], [address] [place] [phone] Notes/Report: Sodium 134 135-145 mmol/L Potassium 3.8 [...] Panel Reviewed date:12/23/2024 09:17:35 PM Interpretation: Performing Lab:[facility], [address] [place] [phone] Notes/Report: Triglycerides 106 <150 mg/dL Desirable Triglyceride: [...] (Free>4and<10) Reviewed date:12/23/2024 09:17:21 PM Interpretation: Performing Lab:[facility], [address] [place] [phone] Notes/Report: PSA,Total (Free>4and<10) 0.60 0.00-4.00 ng/mL A [...] Total Reviewed date:12/23/2024 09:18:48 PM Interpretation: Performing Lab:[facility], [address] [place] [phone] Notes/Report: Vitamin D 25-OH Total 75.2 >30 [...] t Reviewed date:12/25/2024 09:28:00 AM Interpretation: Performing Lab:[facility], [address] [place] [phone] Notes/Report: Urine, Clean Catch Color Urine Yellow Appearance Urine Clear PH 7.5 5.0-9.0 Glucose Urine UA Negative Negative mg/dL Urine Blood Negative Negative Specific [place] - Urine 1.015 1.005-1.025 Urine Protein Negative [...] Date Provider Diagnosis Yaya Galeano MD [address] [place], [place] [phone] 12/23/2024 Yaya Galeano Blood tests for routine [...] Provider Name:Yaya Guerrero ier, 07/03/2025 08:00:00 AM, [address] [place] [address], [address] [facility], [place], [place], [phone], Provider Name:Yaya Guerrero ier, 07/18/2025 10:15:00 AM, [address] [place] [address], Suite [facility], [place], [place], [phone], Provider Name:Yaya Guerrero ier, 12/25/2025 07:45:00 AM, [address] [place] [address], [address] [facility], [place], [place], [phone], Provider Name:Yaya Guerrero conorr, 01/01/2026 08:30:00 AM, [address] [place] [address], Suite [facility], [place], [place], [phone], Progress Notes * Casey CABRERADOB:[birth year] (69 yo M)Acc No.[id number]:12/23/2024 Progress Note Patient: Casey SALDIVAR Provider: Elaina Galeano MD :1955 A ge:69 Y S ex:Male Date:12/23/2024 Address:[address] [place], [place] [phone] Subjective: * Chief Complaints: * 1 . [...] - 12/23/2024 07:15 AM) L AB: Comprehensive [place]. Panel Fast (Collection Date & Time - [...] - 12/23/2024 07:15 AM) L AB: Comprehensive [place]. Panel Fast (Collection Date & Time - [...] - 12/23/2024 07:15 AM) L AB: Comprehensive [place]. Panel Fast (Collection Date & Time - [...] 0 12/23/2024 Generated for Ashli pham/Kristie/Liliana on: 06/04/2024 08:48 AM EST
--- OUTSIDE RECORDS SUMMARY | 2024-12-30 03:30 | XMS_ITS ---
Author Organization Yaya Galeano MD Address [address] [place], [place] [phone] Care Team Providers Care Rod Bending Machine Operator Name Role Phone Yaya Galeano Primary [...] kg/m2 12/30/2024 weight is down 2 pounds [facility] Encounters Encounter Location Date Provider Diagnosis Yaya Galeano MD [address] [place] [address] [place] [phone] 12/30/2024 Yaya Galeano Annual physical exam Z00.00 [...] Z12.11) THE COLOGUARD ORDER WAS FAXED TO [facility] 12/30/2024 Encounter for screening for malignant neoplasm [...] of colon THE ORDER WAS [facility]XED TO [facility] advised to get shing les vaccine Essential [...] Reason: Provider Name:Yaya hilliard, 07/03/2025 08:00:00 AM, [address] [place] [address], [address], [phone], Provider Name:Yaya hilliard, 07/18/2025 10:15:00 AM, [address] [place] [address], [address], [phone], Provider Name:Yaya hilliard, 12/25/2025 07:45:00 AM, [address] [place] [address], [address] [place] [address], [phone], Provider Name:Yaya hilliard, 01/01/2026 08:30:00 AM, [address] [place] [address], [address], [phone], Progress Notes * Casey CABRERADOB:[birth year] (69 yo M)Acc No.[id number]:12/30/2024 Progress Notes Patient: Casey SALDIVAR Provider: Elaina Galeano MD :1955 A ge:69 Y S ex:Male Date:12/30/2024 Address:[address] [place], [place] [phone] Subjective: * Chief Complaints: * A NNUAL [...] mg/dL Urine Blood Negative Negative - Specific [place] - Urine 1.015 1.005-1.025 - Urine Protein [...] Auto 0.000 0.0-0.012 - X10*3/uL L ab:Comprehensive [place]. Panel Fast (Order Date - 12/23/2024) (Collection [...] Notes: THE COLOGUARD ORDER WAS FAXED TO [facility] 3. E ncounter for screening for malignant [...] MD Date: 0 12/30/2024 Generated for Ashli pham/Kristie/Derrekitting on: 1 06/04/2024 [...]
--- OUTSIDE RECORDS SUMMARY | 2025-03-31 04:15 | XMS_ITS ---
Author Organization Yaya Galeano MD Address [address] [place], [place] [id number] Care Team Providers Care Joinery Setter Out Name Role Phone Yaya Galeano Primary Care [...] Status W/U Status Risk Notes Problem Insomnia (684835031) Insomnia (G47.00) Active confirmed Vital Signs Blood pressure systolic 112 mm Hg 03/31/20 25 Blood pressure diastolic 60 mm Hg 025 Height 66.5 in 03/31/2025 Weight 162 lbs 03/31/2025 BMI 25.75 kg/m2 03/31/2025 weight is up 4 pounds since 12-30-24 Encounters Encounter Location Date Provider Diagnosis Yaya Galeano MD [address] [place] [address] [phone] 03/31/2025 Yaya Galeano Insomnia G47.00 Assessments Encounter [...] Details Provider Name:Yaya hilliard, 07/03/2025 08:00:00 AM, [address] [place] [address], [phone], Provider Name:Yaya hilliard, 07/18/2025 10:15:00 AM, [address] [place] [address], [phone], Provider Name:Yaya hilliard, 12/25/2025 07:45:00 AM, [address] [place] [address], [phone], Provider Name:Yaya hilliard, 01/01/2026 08:30:00 AM, [address] [place] [address], [phone], Progress Notes * Casey CABRERADOB:[birth year] (69 yo M)Acc No.[id number]:03/31/2025 Progress Notes Patient: Casey SALDIVAR Provider: Elaina Galeano MD :1955 A ge:69 Y S ex:Male Date:03/31/2025 Address:[address] [place] [address] Subjective: * Chief Complaints: * 1 . not sleeping stopped taking Benadryl 1 year ago has been taking Nyquil to sleep. * HPI: S ymptom(s): patient is a [...] D enies N ausea. * Medical History: E ndoscopy, 10 years ago, Dr. Villa, colonoscopy - 07/05/[address] Villa hyperplastic polyp due in 10 years, Thyroid nodule biopsy negative, Annual physical exam. * Medications: T aking Betamethasone Dipropionate 0.05 % Cream 1 application Externally Once a day , Taking Sildenafil Citrate 100 MG Tablet TAKE ONE-HALF TABLET BY MOUTH ONCE DAILY IF NEEDED , Taking Famotidine 20 MG Tablet 1 tablet at bedtime as needed Orally Once a day , Taking Vitamin D 50 MCG (1999 [place]) Tablet 1 tablet Orally Once a day , Taking Esomeprazole Magnesium 40 MG Capsule Delayed Release TAKE 1 CAPSULE DAILY , Taking Valsartan-hydroCHLOROthiazide 320-12.5 MG Tablet TAKE 1 TABLET DAILY , Taking Atorvastatin Calcium 20 MG Tablet TAKE 1 TABLET DAILY , Not-Taking/PRN Benadryl Allergy 25 MG Tablet 1 tablet at bedtime as needed Orally Once a day , Medication List reviewed and reconciled with the patient * Allergies: L isinopril: cough. Objective: * Vitals: H t: 66.5, Wt: [...] - G47.00 (Primary) Plan: * Treatment: * * The named appointment provid er may or may not be the originator of this progress note, and it is not deemed complete until electronically signed by the appointment provider. Sign off status: Pending * Provider: Elaina Galeano MD Date: Generated for Ashli pham/Kristie/Louisesmitting on: 06/04/2024 08:48 AM EST History and Physical Notes * Examination Category Sub-Category Detail Notes Category Not es General Examination GENERAL APPEARANCE: alert, w ell hydrated, in no distress HEART: regular rate and rhy thm, no murmurs, rubs, gallops LUNGS: no wheezes, rales, r honchi, good air movement, clear to auscultation bilaterally SKIN: good turgor
--- OUTSIDE RECORDS SUMMARY | 2025-04-04 08:48 | XMS_ITS | Patient Health Record ---
Author Organization Yaya Galeano MD Address [address] [place], [place] [id number] Care Team Providers Care Cap And Hat Production Supervisor Name Role Phone Yaya Galeano Primary Care Provider [phone] Allergies Allergen (clinical drug ingredient) Drug/Non Drug Allergy documented on EMR Reaction Allergy Type Onset Date Status lisinopril Lisinopril cough Drug Allergy Activ e Results Component Value Reference Range Notes Liver Panel Reviewed date:05/20/2024 04:27:52 PM Interpretation: Performing Lab:[facility], [address] [place] [phone] Notes/Report: Bilirubin Total 0.8 0.0-1.0 mg/dL Bilirubin Direct 0.3 0.0-0.5 mg/dL Aspartate Amino Transferase 34 5-37 U/L Alanine Aminotransferase 33 0-40 U/L Total Protein 6.7 6.5-8.0 g/dL Albumin Level 4.1 3.5-5.0 g/dL Alkaline Phosphatase 95 39-117 U/L Lipid Panel with Reflex Reviewed date:05/20/2024 04:27:32 PM Interpretation: Performing Lab:[facility], [address] [place] [phone] Notes/Report: Triglycerides 90 <150 mg/dL Desirable Triglyceride: [...] ff Reviewed date:12/23/2024 09:26:23 PM Interpretation: Performing Lab:[facility], [address] [place] [phone] Notes/Report: White Blood Count 6.1 4.8-10.8 X10*3/uL [...] NRBC Abs Auto 0.000 0.0-0.012 X10*3/uL Comprehensive Exmore. Panel Fa st Reviewed date:12/23/2024 09:26:57 PM Interpretation: Performing Lab:[address] [phone] Notes/Report: Sodium 134 135-145 mmol/L Potassium 3.8 [...] Panel Reviewed date:12/23/2024 09:17:35 PM Interpretation: Performing Lab:[address] [phone] Notes/Report: Triglycerides 106 <150 mg/dL Desirable Triglyceride: [...] (Free>4and<10) Reviewed date:12/23/2024 09:17:21 PM Interpretation: Performing Lab:[address] [phone] Notes/Report: PSA,Total (Free>4and<10) 0.60 0.00-4.00 ng/mL A [...] Total Reviewed date:12/23/2024 09:18:48 PM Interpretation: Performing Lab:[address] [phone] Notes/Report: Vitamin D 25-OH Total 75.2 >30 [...] t Reviewed date:12/25/2024 09:28:00 AM Interpretation: Performing Lab:[facility], [address] [place] [phone] Notes/Report: Urine, Clean Catch Color Urine Yellow Appearance Urine Clear PH 7.5 5.0-9.0 Glucose Urine UA Negative Negative mg/dL Urine Blood Negative Negative Specific [place] - Urine 1.015 1.005-1.025 Urine Protein Negative Neg-Trace mg/dL Urine Ketones Negative Negative mg/dL Nitrite Urine Negative Negative Leukocyte Esterase Urine Negative Negative RBC Urine 0-2 0-2 /HPF WBC Urine 0-5 0-5 /HPF Squamous Epithelial Cell Urine 0-2 0-2 /HPF Bacteria Urine None Seen None Seen Hyaline Casts Urine 0-2 0-2 /LPF Barbara Kovacs Reviewed date:05/20/2024 04:27:24 PM Interpretation: Performing Lab:[facility], [address] [place] [phone] Notes/Report: Barbara Kovacs See Note Specimen held untested for 24 hours; Call to request Chemistry testing. Reason For Referral No Information Medications Medication SIG (Take, Route, Frequency, Duration) Notes Start Date End Date Status Vitamin D 50 MCG (1999) 1 tablet Orally Once a day Active Esomeprazole Magnesium 40 MG TAKE 1 CAPSULE DAILY Active traZODone HCl 50 MG 1 tablet at bedtime as needed Orally Once a day for 30 days 03/31/2025 Active Valsartan-hydroCHLOROthia zide 320-12.5 MG TAKE 1 TABLET DAILY Acti ve Atorvastatin Calcium 20 MG TAKE 1 TABLET DAILY Active Benadryl Allergy 25 MG 1 tablet at bedti me as needed Orally Once a day for 30 day(s) Not-Taking Betamethasone Dipropionate 0.05 % 1 application Externally Once a day 08/08/2019 Active Sildenafil Citrate 100 MG TAKE ONE-HALF TABLET BY MOUTH ONCE DAILY IF NEEDED for 60 Active Famotidine 20 MG 1 tablet at bedtime as needed Orally Once a day Active Immunizations Vaccine Route Administration Date Status Comme nts Flu Vaccine IM Intramuscular 04/25/2014 Administered zFluzone Quadrivalent IM Intramuscular 04/24/2015 Administered Fluarix Quadrivalent IM Intramuscular 02/26/2016 Adminbeba red Fluarix Quadrivalent IM Intramuscular 03/10/2017 Adminbeba red TDaP IM Intramuscular 12/29/2017 Administered pt was given the vaccine at [facility] in [place] Fluarix Quadrivalent IM Intramuscular 03/15/2018 Adminbeba red [...] W/U Status Risk Notes Problem Acid reflux (147482086) Acid reflux (K21.9) Active confirmed Problem 036192963 Thyroid nodule (E04.1) Active confirmed Problem Insomnia (053889630) Insomnia (G47.00) Active confirmed Problem Vitamin D deficiency (78232912) Vitamin D deficiency (E55.9) Active confirmed Problem 809240674 Mixed hyperlipidemia (E78.2) Active confirmed Problem 51335946 Essential hypertension (I10) Active confirmed Problem 03845829 Intrinsic eczema (L20.84) Active confirmed Problem 832442639 Vasculogenic erectile dysfunction, 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 Problem 666243750 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 Vital Signs Blood pressure diastolic 60 mm Hg 03/31/2025 awilda ght is up 4 pounds since 12-30-24 Height 66.5 in 03/31/2025 weight is up 4 pounds since 12-30-24 Blood pressure systolic 112 mm Hg 03/31/2025 weig ht is up 4 pounds since 12-30-24 Weight 162 lbs 03/31/2025 weight is up 4 pounds since 12-30-24 BMI 25.75 kg/m2 03/31/2025 weight is up 4 pounds since 12-30-24 Encounters Encounter Location Date Provider Diagnosis Yaya Galeano MD [address] [place] [id number] 05/20/2024 Yaya Galeano Mixed hyperlipidemia E78.2 Yaya Galeano MD [address] [place] [id number] 12/23/2024 Yaya Galeano Blood tests for routine general physical examination Z00.00 ; Essential hypertension I10 ; Mixed hyperlipidemia E78.2 and Vitamin D deficiency E55.9 Yaya Galeano MD [address] [place] [id number] 03/31/2025 Yaya Galeano Insomnia G47.00 Yaya Galeano MD [address] [place] [address] Drive [address] [place] [id number] 05/27/2024 Yaya Galeano Mixed hyperlipidemia E78.2 and Essential hypertension I10 Yaya Galeano MD [address] [place], [place] [id number] 06/09/2024 Yaya Galeano Acute recurrent frontal sinusitis J01.11 Yaya Galeano MD [address] [place] [id number] 12/30/2024 Yaya Galeano Annual physical exam Z00.00 [...] routine general physical examination (ICD-10 - Z00.00) 03/31/2025 Insomnia (ICD-10 - G47.00) patient verbalized understanding of medication and directions for use 05/27/2024 Mixed hyperlipidemia (ICD-10 - E78.2) doing well,at goal, will cntinue current regiment 05/27/2024 Essential hypertension (ICD-10 - I10) well controlled, at goal, will continue current regiment 06/09/2024 Acute recurrent frontal sinusitis (ICD-10 - J01.11) 12/30/2024 Annual physical exam (ICD-10 - Z00.00) labs reviewed and discussed with patient 12/30/2024 Encounter for screening for malignant neoplasm of colon (ICD-10 - Z12.11) THE COLOGUARD ORDER WAS FAXED TO [facility] 12/23/2024 Essential hypertension (ICD-10 - I10) 12/30/2024 Encounter for screening for malignant neoplasm of rectum (ICD-10 - Z12.12) 12/23/2024 Mixed hyperlipidemia (ICD-10 - E78.2) 12/30/2024 Shingles (ICD-10 - B02.9) advised to get shingles vaccine 12/23/2024 Vitamin D deficiency (ICD-10 - E55.9) 12/30/2024 Essential hypertension (ICD-10 - I10) doing [...] 05/05/2019 MRI SHOULDER RT W&WO CONTRAST 05/06/2021 COLOGUARD 12/30/2024 MR shoulder RT wo con 05/07/2021 US biopsy thyroid 01/20/2023 US thyroid 01/02/2022 US thyroid 10/21/2021 US thyroid 12/15/2022 Next Appt Details Provider Name:Yaya perdomor, 07/03/2025 08:00:00 AM, [address] [place] [address], [address], [phone], Provider Name:Yaya Guerrero ier, 07/18/2025 10:15:00 AM, [address] [place] [address], [address], [phone], Provider Name:Yaya perdomor, 12/25/2025 07:45:00 AM, [address] [place] [address], [address] [place] [address], [phone], Provider Name:Yaya perdomor, 01/01/2026 08:30:00 AM, [address] [place] [address], [address], [phone], Insurance Providers Payer Name Payer Address Payer Phone Subscriber Number Group Number Insured Name Patient Relationship to Insured Coverage Start Date Coverage End Date [employer] [address] [place], [place] [phone] [id number] [phone] [place], Christopher Self - patient is the insured Medical (General) History Medical History History ICD Code Endoscopy, 10 years ago, Dr. Villa colonoscopy - 07/05/[address] Villa hy perplastic polyp due in 10 years thyroid nodule biopsy negative Annual physical exam
--- OUTSIDE RECORDS SUMMARY | 2025-04-04 08:48 | XMS_ITS | Encounter Summary ---
Author Organization [facility] Address [address] [facility] [address] [place] [address] Phone Care Team Providers Care Substitute Crossing Guard Name Role Phone Yaya Galeano MD Primary Care Provider Encounter Details Date Type Department Care Team (Late st Contact Info) Description 06/01/2021 Procedure Pass [facility] [address] [place] [address] Social History Tobacco Use Types Packs/Day Years [...] on filedocumented in this encounter Care Teams Substitute Crossing Guard Relationship Specialty Start Date End Date Yaya Galeano MD [address] [place] [address] Dr ORELLANA [place] [address] PCP - General Internal Medicine 02/28/19 documented as of this encounter Additional Source Comments The information contained in this document represents components of the legal health record. It is not the complete legal health record.[facility]
--- OUTSIDE RECORDS SUMMARY | 2025-04-04 08:48 | XMS_ITS | Encounter Summary ---
Author Organization [facility] Address [address] [facility] [address] [place] [address] Phone Care Team Providers Care Battery Charger Name Role Phone Yaya Galeano MD Primary Care Provider Encounter Details Date Type Department Care Team (Late st Contact Info) Description 05/19/2019 Procedure Pass [facility] PERIOPERATIVE DEPT [address] [place] [address] Social History Tobacco Use Types [...] on filedocumented in this encounter Care Teams Battery Charger Relationship Specialty Start Date End Date Yaya Galeano MD [address] [place] [address] [place] [address] PCP - General Internal Medicine 02/28/19 documented as of this encounter Additional Source Comments The information contained in this document represents components of the legal health record. It is not the complete legal health record.[facility]
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
--- OUTSIDE RECORDS SUMMARY | 2025-04-04 08:49 | XMS_ITS | Clinical Summary ---
Author Organization [facility] Address [address] [address] Phone Care Team Providers Care Computer Equipment Installer Name Role Phone Yaya Galeano MD Primary Care Provider Allergies Active Allergy Reactions Criticality Noted Date Comments Lisinopril Cough 05/16/2019 A side effect at night Medications atorvastatin (LIPITOR) 20 MG tablet Take 20 mg by mouth daily. Active cimetidine (TAGAMET) 800 MG tablet Take 800 mg by mouth nightly at bedtime. Active valsartan-hydroC HLOROthiazide (DIOVAN-HCT) 320-12.5 mg per tablet Active betamethasone dipropionate 0.05 % cream 2 Active famotidine (PEPCID) 20 MG tablet 9 Active sildenafil (VIAGRA) 100 mg tablet 7 Active acetaminophen (TYLENOL) 325 mg tablet Take 2 tablets (650 mg total) by mouth 5 (five) times a day. 0 9 Active polyethylene glycol (MIRALAX) 17 gram packet Take 17 g by mouth daily as needed (severe constipation). 9 Active Additional Information Patient not taking.Reported on 06/24/2019 oxyCODONE 5 MG immediate release tablet Take 1 tablet (5 mg total) by mouth every 8 (eight) hours as needed for severe pain. 42 tablet 0 Active Additional Information Patient not taking.Reported on 06/24/2019 oxyCODONE 5 MG immediate release tablet Take 1 tablet (5 mg total) by mouth every 4 (four) hours as needed for moderate pain. Partial fill ok 5 tablet 0 Active Additional Information Patient not taking.Reported on 06/24/2019 lansoprazole (PREVACID) 30 MG capsule Take 30 mg by mouth daily. Active amoxicillin (AMOXIL) 500 MG capsule Take 4 capsules (2,000 mg total) by mouth once as needed. Take 4 capsules 1 hour prior to dental procedures. 20 capsule 0 Active Active Problems Problem Noted Date Diagnosed Date Status post total hip replacement, right 019 Social History Tobacco Use Types Packs/Day Years Used Date Smoking Tobacco: Former Cigarettes 0.5 10 0 06/01/1997 - 06/01/2007 Smokeless Tobacco: Never Alcohol Use Standard Drinks/Week Comments Not Currently 4 (1 standard drink = 0.6 oz pur e alcohol) Education Answer Date Recorded Are you interested in more education? Not on carmen e 09/26/2022 Are you concerned about learning? Not on file 09/26/2022 No 09/26/2022 No 09/26/2022 Digital Access Answer Date Recorded No 10/25/2022 No 10/25/2022 No 10/25/2022 Reliable internet access at home? Not on file 10/25/2022 Device with a working camera? Not on file Sex and Gender Information Value Date Recorded Sex Assigned at Not on file Legal Sex Male 12:21 PM EDT Gender Identity Not on file Sexual Orientation Not on file Last Filed Vital Signs Vital Sign Reading Time Taken Comments Blood Pressure 121/70 05/20/2019 8:05 AM EST Pulse 78 05/20/2019 8:05 AM EST Temperature 36.8 C (98.3 F) 05/20/2019 8:05 AM EST Respiratory Rate 18 05/20/2019 8:05 AM EST Oxygen Saturation 96% 05/20/2019 8:05 AM EST Inhaled Oxygen Concentration - - Weight 73.9 kg (163 lb) 06/24/2019 1:07 PM EST Height 167.6 cm (5' 6 ) 06/24/2019 1:07 PM EST Body Mass Index 26.31 06/24/2019 1:07 PM EST Plan of Treatment Health Maintenance Due Date Last Done Comments LIPID PANEL 1956 DEPRESSION SCREENING 1968 SMOKING Hx and SMOKELESS TOBACCO SCREENING 1969 HEPATITIS C SCREENING 1974 COLOGUARD 2001 COLONOSCOPY 2001 COLORECTAL CANCER SCREENING 2001 FIT TEST 2001 FOBT 2001 SIGMOIDOSCOPY 2001 VIRTUAL COLONOSCOPY 2001 PNEUMOCOCCAL VACCINES (50+ years) (1 of 1 - PCV) 2006 ZOSTER VACCINES (1 of 2) 2006 CREATININE LEVEL 05/20/2020 05/20/2019 POTASSIUM LEVEL 05/20/2020 05/20/2019 ABDOMINAL AORTIC ANEURYSM (AAA) SCREENING 2021 INFLUENZA VACCINE (#1) 2024 0, 02/15/2019, 03/15/2018, Additional history exists COVID-19 VACCINE (2024- season) 2025 07/23/2020 Adult Td,Tdap Booster 12/30/2027 12/29/2017 RSV VACCINE (1 - 1-dose 75+ series) 2031 HEPATITIS A VACCINES Aged Out No long er eligible based on patient's age to complete this topic HIB VACCINES Aged Out No longer eligi ble based on patient's age to complete this topic MENINGOCOCCAL VACCINES (ACWY) Aged Out No longer eligible based on patient's age to complete this topic MENINGOCOCCAL VACCINES (B) Aged Out N o longer eligible based on patient's age to complete this topic Medical Devices Implanted Type Area Product Strategy Director Device Identifier Shelf Expiration Date Model / Serial / Lot Screw Bone 30x6.5mm Hip Cancellous Self Tapping Partial Thrd Trident S/S 16a - [id number] Implanted:Qty: 1 on 05/19/2019 by Leeann Teran MD, PhD at [facility] Right: Hip [employer] 12/29/[id number] -1 / / [id number] Screw Bone 25x6.5mm Hip Cancellous Self Tapping Partial Thrd Trident S/S 16a - [id number] Implanted:Qty: 1 on 05/19/2019 by Leeann Teran MD, PhD at [facility] Right: Hip [employer] 12/18/[id number] -1 / / [id number] Hip Stem 66o193cp Size 4 127deg Femoral Accolade Titanium Hydroxyapatite Coating - [id number] Implanted:Qty: 1 on 05/19/2019 by Leeann Teran MD, PhD at [facility] [employer] Right: Hip [employer] 03/21/2024 [id number] / / [id number] Hip 36mm 2.5 Implant Plus Hd Alumina Ceramic Modular Delta Biolox 04 - [id number] Implanted:Qty: 1 on 05/19/2019 by Leeann Teran MD, PhD at [facility] STANDARD Right: Hip [employer] 04/12/2024 6570-0-53 6 / / [id number] Acetabular Insert 36mm 0.0deg Trident Polyethylene Size E - [id number] Implanted:Qty: 1 on 05/19/2019 by Leeann Teran MD, PhD at [facility] STANDARD Right: Hip [employer] 02/27/2024 623-00-36 E / / [id number] Acetabular Shell 52mm Implant Size E She Trident Hemispherical Cluster Ultra High 06 - [id number] Implanted:Qty: 1 on 05/19/2019 by Leeann Teran MD, PhD at [facility] STANDARD Right: Hip [employer] 02/08/2024 502-11-52 E / / [id number] Tooth Implant Procedures Procedure Name Priority Date/Time Associated Diagnosis Comments BASIC METABOLIC PANEL (BMP) Routine 05/20/2019 5:51 AM EST from Last 3 Months or Most Recently Relevant to Health Maintenance Results * (ABNORMAL) Basic metabolic panel (05/20/2019 5:51 AM EST) SODIUM 134(L) 135 - 145 mmol/L [facility] POTASSIUM 3.6 3.4 - 5.0 mmol/L [facility] CHLORIDE 96(L) 98 - 108 mmol/L [facility] CO2 24 23 - 32 mmol/L [facility] BUN 23 8 - 25 mg/dL [facility] CREATININE 1.49 0.60 - 1.50 mg/dL [facility] GLUCOSE 117(H) 70 - 110 mg/dL [facility] CALCIUM 8.6 8.5 - 10.5 mg/dL [facility] EGFR 50(L) >59 mL/min/1. 73m2 [facility] Comment:If patient is black, multiply result by 1.159. Estimated glomerular filtration rate calculated using the CKD-EPI equation. ANION GAP 14 3 - 17 mmol/L [facility] Blood 05/20/2019 5:51 AM EST 05/20/2019 6:01 AM EST Leeann Teran MD, PhD LAB BLOOD BKR ORDERABLES Final Result Performing Organization Address City/State/[facility] Co de Phone Number [address] [address] from Last 3 Months or Most Recently Relevant to Health Maintenance Insurance [facility] HMO POS [facility] HMO POS Y[facility]IR [facility] HMO POS [facility] HMO POS [facility]IR [facility] HMO POS Advance Directives For more information, please contact: [phone] (9AM - 5PM [place], Thursday-Thursday) Documents on File Type Date Recorded Patient Emt I/85 Expl anation Healthcare Proxy 05/19/2019 3:45 PM * Full Code (Presumed) (Latest Code Status on File) Date Activated Date Inactivated Comments 05/19/2019 1:51 PM 05/20/2019 2:01 PM Care Teams Computer Equipment Installer Relationship Specialty Start Date End Date Yaya Galeano MD [address] [place] [address] Dr Vargas, [place] [address] PCP - General Internal Medicine 02/28/19 Additional Source Comments The information contained in this document represents components of the legal health record. It is not the complete legal health record.[facility]
--- NOTE | 2025-04-05 15:37 | MHC.AU.HA3 ---
Hearing Instrument Follow-Up- Binaural Date of Visit: 04/05/25 Right Ear: Blas Model, Color, Serial Number: Kashmir Lopez [id number]-[id number] SN: [id number] Color: Graphite Garcia Database Marketing Specialist Repair Warranty: Database Marketing Specialist Loss and Damage Warranty: [facility] Service Plan: Battery Size: Rechargeable Temperature Regulator/Slim Tube: 2xS Earmold/Dome/CShell/SlimTip:Large open dome Type of Wax Guard: CeruStop Dispensed By: [facility] Date of Fittin11/05/2016 Left Ear: Blas, Model, Color, Serial Number: Kashmir Lopez B90-R SN: [id number] Color: Graphite Garcia Database Marketing Specialist Repair Warranty: Database Marketing Specialist Loss and Damage Warranty: [facility] Service Plan: Battery Size: Rechargeable Temperature Regulator/Slim Tube: 2xS Earmold/Dome/CShell/SlimTip: Large open dome Type of Wax Guard: CeruStop Dispensed By: [facility] Date of Fittin11/05/2016 Follow-Up Summary: Both HAs, ammunition officer, and white cord/wall plug dropped off on 04/04/2025 reporting not holding a charge. Called Anujjoellenmckinley on 04/05/2025. He reported HAs charge all night, solid green in morning; however, around 2pm, battery warning signal starts playing; battery no longer lasting full day. Advised likely rechargeable battery needs to be replaced. Quoted $385.00 per MCKENZIE. However, given age of the devices, recommend considering new HAs. Casey reported not financially ready to pursue new HAs. Recommended contacting insurance to inquire about benefit. He will call insurance and then decide how to proceed. Also recommend using original cord and wall plug with ammunition officer. Casey reported that cord no longer works; will provide new cord/wall plug, if needed. *Casey called back. Reported insurance has no benefit. Discussed pros/cons of repair vs replace. Casey still opted to send both HAs out for lithoduplicator operator repair. Sent HAs to [employer]. Kennel Staff Member, cord, and wall plug as well as new cord/wall plug in Repair Drawer. $770.00 due at nut picker. Recommendations: Patient will be contacted when materials have arrived. Diagnosis Code(s): Primary Diagnosis: H90.3 Bilateral Sensorineural Hearing Loss Signature: Provider: Nicolette Ruiz, [facility]
== END 2025-04-04 08:25 | disposition home or self-care (01) ==
LOC: HO.HAP 08:24
PROVIDERS: Visit Provider Internal Medicine
DX: Z13.89 Encounter for screening for other disorder (principal)

== ENCOUNTER 2025-04-19 11:50 | Outpatient (REF) | payer SELFPAY ==
--- OUTSIDE RECORDS SUMMARY | 2023-12-21 03:00 | XMS_ITS ---
Author Organization Yaya Galeano MD Address [address] [place], [place] [phone] Care Team Providers Care Tax Accounting Manager Name Role Phone Yaya Galeano Primary Care Provider Results Component Value Reference Range Notes Complete Blood Count Auto Di ff Reviewed date:12/21/2023 12:37:16 PM Interpretation: Performing Lab:[facility], [address] [place] [phone] Notes/Report: White Blood Count 6.8 4.8-10.8 X10*3/uL [...] NRBC Abs Auto 0.000 0.0-0.012 X10*3/uL Comprehensive [place]. Panel Fa st Reviewed date:12/21/2023 12:40:43 PM Interpretation: Performing Lab:[facility], [address] [place] [phone] Notes/Report: Sodium 139 135-145 mmol/L Potassium 3.7 3.3-5.1 mmol/L Chloride 103 96-108 mmol/L Carbon Dioxide 27 22-29 mmol/L Anion Gap 13 12-20 Blood Urea Nitrogen 14 9-16 mg/dL Creatinine 1.14 0.5-1.4 mg/dL Estimated Glomerular Filt Rate > 60 NOTE: For -Kenyan individuals, multiply the result by 1.210. Chronic [...] Panel Reviewed date:12/21/2023 12:37:48 PM Interpretation: Performing Lab:[facility], [address] [place] [phone] Notes/Report: Triglycerides 158 <150 mg/dL Desirable Triglyceride: [...] (Free>4and<10) Reviewed date:12/21/2023 12:34:20 PM Interpretation: Performing Lab:[facility], [address] [place] [phone] Notes/Report: PSA,Total (Free>4and<10) 0.68 0.00-4.00 ng/mL A [...] Total Reviewed date:12/21/2023 12:36:18 PM Interpretation: Performing Lab:[facility], [address] [place] [phone] Notes/Report: Vitamin D 25-OH Total 55.4 >30 [...] t Reviewed date:12/21/2023 05:38:29 PM Interpretation: Performing Lab:[facility], [address] [place] [phone] Notes/Report: Urine, Clean Catch Color Urine Yellow Appearance Urine Clear PH 6.0 5.0-9.0 Glucose Urine UA Negative Negative mg/dL Urine Blood Negative Negative Specific [place] - Urine 1.025 1.005-1.025 Urine Protein Trace [...] Location Date Provider Diagnosis Yaya Galeano MD [address] [place] [address] [address] [place], [place] [phone] 12/21/2023 Yaya Galeano Blood tests for routine [...] Name:Yaya Guerrero ier, 07/03/2025 08:00:00 AM, [address] [facility] [address], [address] [facility], [place], [place], [phone], Provider Name:Yaya Guerrero ier, 07/18/2025 10:15:00 AM, [address] [facility], [address] [facility], [place], [place], [phone], Provider Name:Yaya Guerrero ier, 12/25/2025 07:45:00 AM, [address] [facility] [address], [address], [place], [place], [phone], Provider Name:Yaya Guerrero ier, 01/01/2026 08:30:00 AM, [address] [facility], [address] [facility], [place], [place], [phone], Progress Notes * Casey CABRERADOB:[birth year] (69 yo M)Acc No.[id number]:12/21/2023 Progress Note Patient: Casey SALDIVAR Provider: Elaina Galeano MD :1955 A ge:68 Y S ex:Male Date:12/21/2023 Address:[address] [place], [place] [id number] Subjective: * Chief Complaints: * 1 . [...] - 12/21/2023 08:00 AM) L AB: Comprehensive [place]. Panel Fast (Collection Date & Time - [...] - 12/21/2023 08:00 AM) L AB: Comprehensive [place]. Panel Fast (Collection Date & Time - [...] - 12/21/2023 08:00 AM) L AB: Comprehensive [place]. Panel Fast (Collection Date & Time - [...] 0 12/21/2023 Generated for Ashli pham/Kristie/Liliana on: 06/19/2024 11:03 PM EST
--- OUTSIDE RECORDS SUMMARY | 2023-12-28 04:30 | XMS_ITS ---
Author Organization Yaya Galeano MD Address [address] [place], [place] [phone] Care Team Providers Care Ophthalmic Nurse Name Role Phone Yaya Galeano Primary Care Provider Allergies Allergen (clinical drug ingredient) Drug/Non Drug Allergy documented on EMR Reaction Allergy Type Onset Date Status lisinopril Lisinopril cough Drug Allergy Activ e REASON FOR VISIT ANNUAL EXAM Medications Medication SIG (Take, Route, Frequency, Duration) Notes Start Date End Date Status Sildenafil Citrate 100 MG TAKE ONE-HALF TABLET BY MOUTH ONCE DAILY IF NEEDED for 60 Active Lansoprazole 30 MG 1 capsule Orally Onc e a day for 30 day(s) Unknown Aleve 220 MG 1 tablet with food o r milk as needed Orally every 12 hrs Unknown Benadryl Allergy 25 MG 1 tablet at bedti me as needed Orally Once a day for 30 day(s) Unknown Transderm-Scop 1 MG/3DAYS 1 patch to ski n behind the ear as needed Transdermal every 3 days for 14 days 01/28/2022 Unknown Valsartan-hydroCHLOROthiazi de 320-12.5 MG TAKE 1 TABLET DAILY for 90 Active Esomeprazole Magnesium 40 MG TAKE 1 CAPSULE ONCE DAILY for 90 Active Vitamin D 50 MCG (1999) 1 tablet Oral ly Once a day Active Atorvastatin Calcium 20 MG TAKE 1 TABLET DAILY Active Betamethasone Dipropionate 0.05 % 1 application Externally Once a day 08/08/2019 Active Famotidine 20 MG 1 tablet at bedtime as needed Orally Once a day for 30 day(s) Active Social History Tobacco Use: Social History Observation Description Date Details (start date - stop date) Former Smoker NA - NA Tobacco Use/Smoking Question Answer Notes Patient is a former smoker How long has it been since y ou last smoked? 1-5 years Additional Findings: Tobacco Non-User Fo rmer smoker, currently using no form of tobacco Alcohol Screen Question Answer Notes Did you have a drink contain ing alcohol in the past year? Yes How often did you have a dri nk containing alcohol in the past year? Monthly or less (1 point) How many drinks did you have on a typical day when you were drinking in the past year? 1 or 2 drinks (0 point) How often did you have 6 or more drinks on one occasion in the past year? Never (0 point) Points 1 Interpretation Negative Vital Signs Blood pressure systolic 102 mm Hg 12/28/19 24 Blood pressure diastolic 60 mm Hg 024 Height 66.5 in 12/28/2023 Weight 166 lbs 12/28/2023 BMI 26.39 kg/m2 12/28/2023 Encounters Encounter Location Date Provider Diagnosis Yaya Galeano MD [address] [place] [address] [place] [phone] 12/28/2023 Yaya Galeano Essential hypertensi on I10 ; Annual physical exam Z00.00 ; Avascular necrosis M87.00 ; Mixed hyperlipidemia E78.2 ; Vitamin D deficiency E55.9 ; Acid reflux K21.9 ; Colon cancer screening Z12.11 and Depression screening Z13.31 Assessments Encounter Date Diagnosis (ICD Code) Assessment Notes Treatment Notes Treatment Clinical Notes Section Notes 12/28/2023 Essential hypertension (ICD-10 - I10) doing well on meds, will cntinue current regiment 12/28/2023 Annual physical exam (ICD-10 - Z00.00) labs reviewed and discussed with patient 12/28/2023 Avascular necrosis (ICD-10 - M87.00) has a little tenderness with walking, will continue to monitor 12/28/2023 Mixed hyperlipidemia (ICD-10 - E78.2) stable, will continue current regiment 12/28/2023 Vitamin D deficiency (ICD-10 - E55.9) stable, will continue current regiment 12/28/2023 Acid reflux (ICD-10 - K21.9) stable, will continue curren regiment 12/28/2023 Colon cancer screening (ICD-10 - Z12.11) no stool , sent hme with cards to return to office when completed 12/28/2023 Depression screening (ICD-10 - Z13.31) negative screen Plan Of Treatment Treatment Notes Assessment Notes Essential hypertension doing well on med s, will cntinue current regiment Annual physical exam labs reviewed and d iscussed with patient Avascular necrosis has a little tendern ess with walking, will continue to monitor Mixed hyperlipidemia stable, will contin ue current regiment Vitamin D deficiency stable, will contin ue current regiment Acid reflux stable, will continu e curren regiment Colon cancer screening no stool , sent h me with cards to return to office when completed Depression screening negative screen Next Appt Details Follow Up: 6 Months, Reason: bp Provider Name:Yaya hilliard, 07/03/2025 08:00:00 AM, [address] [place] [address], [address], [phone], Provider Name:Yaya hilliard, 07/18/2025 10:15:00 AM, [address] [place] [address], [address], [phone], Provider Name:Yaya hilliard, 12/25/2025 07:45:00 AM, [address] [place] [address], [address], [phone], Provider Name:Yaya perdomor, 01/01/2026 08:30:00 AM, [address] [place] [address], [address], [phone], Progress Notes * Melony CABRERA:[birth year] (68 yo M)Acc No.[id number]:12/28/2023 Progress Notes Patient: E ngCasey ruiz Provider: Elaina Galeano MD :1955 A ge:68 Y S ex:Male Date:12/28/2023 Address: [address] [address] [id number] Subjective: * Chief Complaints: * A NNUAL EXAM * HPI: D epression Screening: PHQ-9 L ittle interest or pleasure in doing things N ot at all, F eeling down, depressed, or hopeless N ot at all, T rouble falling or staying asleep, or sleeping too much N ot at all, F eeling tired or having little energy N ot at all, P oor appetite or overeating N ot at all, F eeling bad about yourself or that you are a failure, or have let yourself or your family down N ot at all, T rouble concentrating on things, such as reading the newspaper or watching television N ot at all, M oving or speaking so slowly that other people could have noticed; or the opposite, being so fidgety or restless that you have been moving around a lot more than usual N ot at all, T houghts that you would be better off or of hurting yourself in some way N ot at all, T otal Score 0 . I nterpretation and Intervention D epression Screening Findings N egative, F ollow-Up for Depression : review of PHQ-9 found negative result, no follow-up needed. C ommunication Needs: Communication Needs D oes the patient have a hearing impairment Y es, I f yes, what is the hearing impairment? H raine of hearing, Hearing Aids, D oes the patient have a vision impairment? Y es, I f yes, what is the vision impairment? G lasses, D oes the patient have a cognition impairment? N o. F all Risk: History H ave you had any falls with injury in the past year? N o, H ave you had two or more falls in the past year? N o. S THOM Questions: SDOH Questions I n the past year have you been worried about losing housing? N o, I n the past year have you or any family members you live with been unable to get any of the following when it was really needed? Check all that apply: N one. S ymptom(s): patient is a 68 yo male here for yearly evaluation with review of recent labs and follow up of chronic issues. * ROS: G eneral/Constitutional: Patient denies f atigue , headache. C hange in appetite?denies. C hills d enies. F ever d enies. O phthalmologic: Blurred vision d enies. D ischarge d enies. P ain d enies. E NT: Patient denies d ecreased sense of smell , any loss of taste , sore throat. D ecreased hearing d enies. S ore throat d enies. S wollen glands d enies. E ndocrine: Cold intolerance d enies. E xcessive thirst d enies. H eat intolerance d enies. W eight loss d enies. R espiratory: Cough d enies. S hortness of breath at rest d enies. S hortness of breath with exertion d enies. W heezing d enies. C ardiovascular: Chest pain at rest d enies. C hest pain with exertion?denies. I rregular heartbeat d enies. S hortness of breath d enies. ? G astrointestinal: Abdominal pain d enies. C hange in bowel habits d enies. D iarrhea d enies. N ausea d enies. R ectal bleeding d enies. V omiting d enies . G enitourinary: Blood in urine d enies. D ifficulty urinating d enies. F requent urination d enies. M usculoskeletal: Patient denies m uscle aches. P ainful joints d enies. W eakness d enies. P eripheral Vascular: Patient denies r ed and blue toes. S kin: Dry skin d enies. I tching d enies. D enies?Mole(s), changes in moles, new moles or any lesions of concern. D enies P hotosensitivity. R nikita d enies. N eurologic: Dizziness d enies. F ainting d enies. H eadache?denies. * Medical History: * Surgical History: * Hospitalization/Major Diagno stic Procedure: * Family History: F ather: 96 yrs. M other: , family history unknown . 1 sister(s) - healthy. 1 son(s) , 1 daughter(s) - healthy. . Father, Renal Failure Mother,unknown, left him as a baby, Denies mental health/substance abuse family history, Denies mental health/substance abuse family history, No pertinent family medical history, No pertinent family medical history. * Social History: T obacco Use: T obacco Use/Smoking P atient is a f ormer smoker, H ow long has it been since you last smoked? 1 -5 years, A dditional Findings: Tobacco Non-User F ormer smoker, currently using no form of tobacco. D rugs/Alcohol: A lcohol Screen D id you have a drink containing alcohol in the past year? Y es, H ow often did you have a drink containing alcohol in the past year? M onthly or less (1 point), H ow many drinks did you have on a typical day when you were drinking in the past year? 1 or 2 drinks (0 point), H ow often did you have 6 or more drinks on one occasion in the past year? N ever (0 point), P oints 1 , I nterpretation N egative. M iscellaneous: C affeine: yes, frequency:, 1-2 cups per day. Children: yes. Community involvements: yes. no Exercise. Home smoke detector use: yes. Housing: owning. Living with: spouse. Marital status: . Pets: none. no Travel outside of the [place]. * Medications: T akingFamotidine 20 MG Tablet 1 tablet at bedtime as needed Orally Once a dayBetamethasone Dipropionate 0.05 % Cream 1 application Externally Once a dayVitamin D 50 MCG (2000 UT) Tablet 1 tablet Orally Once a dayAtorvastatin Calcium 20 MG Tablet TAKE 1 TABLET DAILY Esomeprazole Magnesium 40 MG Capsule Delayed Release TAKE 1 CAPSULE ONCE DAILY Valsartan-hydroCHLOROthiazide 320-12.5 MG Tablet TAKE 1 TABLET DAILY Sildenafil Citrate 100 MG Tablet TAKE ONE-HALF TABLET BY MOUTH ONCE DAILY IF NEEDED Taking Famotidine 20 MG Tablet 1 tablet at bedtime as needed Orally Once a dayTaking Betamethasone Dipropionate 0.05 % Cream 1 application Externally Once a dayTaking Vitamin D 50 MCG (1999) Tablet 1 tablet Orally Once a dayTaking Atorvastatin Calcium 20 MG Tablet TAKE 1 TABLET DAILY Taking Esomeprazole Magnesium 40 MG Capsule Delayed Release TAKE 1 CAPSULE ONCE DAILY Taking Valsartan-hydroCHLOROthiazide 320-12.5 MG Tablet TAKE 1 TABLET DAILY Taking Sildenafil Citrate 100 MG Tablet TAKE ONE-HALF TABLET BY MOUTH ONCE DAILY IF NEEDED UnknownBenadryl Allergy 25 MG Tablet 1 tablet at bedtime as needed Orally Once a dayTransderm-Scop 1 MG/3DAYS Patch 72 Hour 1 patch to skin behind the ear as needed Transdermal every 3 daysLansoprazole 30 MG Capsule Delayed Release 1 capsule Orally Once a dayAleve 220 MG Tablet 1 tablet with food or milk as needed Orally every 12 hrsMedication List reviewed and reconciled with the patientUnknown Benadryl Allergy 25 MG Tablet 1 tablet at bedtime as needed Orally Once a dayUnknown Transderm- Scop 1 MG/3DAYS Patch 72 Hour 1 patch to skin behind the ear as needed Transdermal every 3 daysUnknown Lansoprazole 30 MG Capsule Delayed Release 1 capsule Orally Once a dayUnknown Aleve 220 MG Tablet 1 tablet with food or milk as needed Orally every 12 hrsMedication List reviewed and reconciled with the patient * Allergies: L isinopril: coughyes[Allergies Verified] Objective: * Vitals: H t: 66.5, Wt:166, BMI:26.39, BP:102/60. * P ast Orders: L ab:Lipid Panel (Order Date - 12/21/2023) (Collection Date - 12/21/2023) Value Reference Range Triglycerides 158 H <150 - mg/dL Cholesterol 164 <200 - mg/dL LDL Cholesterol Calculated 86 <100 - mg/dL HDL Cholesterol 47 >40 - mg/dL L ab:PSA,Total (Free>4and<10) (Order Date - 12/21/2023) (Collection Date - 12/21/2023) Value Reference Range PSA,Total (Free>4and<10) 0.68 0.00-4.00 - ng/ mL L ab:Vitamin D 25-OH Total (Order Date - 12/21/2023) (Collection Date - 12/21/2023) Value Reference Range Vitamin D 25-OH Total 55.4 >30 - ng/mL L ab:Complete Blood Count Auto Diff (Order Date - 12/21/2023) (Collection Date - 12/21/2023) Value Reference Range White Blood Count 6.8 4.8-10.8 - X10*3/uL Red Blood Count 4.44 L 4.60-5.80 - X10*6/uL Hemoglobin 14.5 14.0-18.0 - g/dl Hematocrit 41.6 L 42.0-52.0 - % Mean Corpuscular Volume 93.7 80.0-98.0 - fL Mean Corpuscular Hemoglobin 32.7 27.0-33.0 - pg Mean Corpuscular HGB Conc 34.9 31.0-36.0 - g/ dl Red Cell Distribution Width 12.6 11.0-16.0 - % Platelet Count 317 160-400 - X10*3/uL Mean Platelet Volume 9.1 L 9.4-12.4 - fL Neutrophils Percent Auto 46.7 45-73 - % Imm Gran Pct Auto 0.3 0.0-0.4 - % Lymphocytes Percent Auto 35.8 20-40 - % Monocytes Percent Auto 11.6 H 2-11 - % Eosinophils Percent Auto 4.0 0-4 - % Basophils Percent Auto 1.6 0-2 - % NRBC Pct Auto 0.0 0.0-0.2 - /100WBC Neutrophils Absolute Auto 3.2 2.0-8.3 - x10* 3/uL Imm Gran Abs Auto 0.02 0.00-0.03 - X10*3/uL Lymphocytes Absolute Auto 2.4 1.2-4.9 - X10* 3/uL Monocytes Absolute Auto 0.8 0.1-1.2 - X10*3/ uL Eosinophils Absolute Auto 0.3 0.0-0.4 - X10* 3/uL Basophils Absolute Auto 0.1 0.0-0.2 - X10*3/ uL NRBC Abs Auto 0.000 0.0-0.012 - X10*3/uL L ab:Comprehensive Elsie. Panel Fast (Order Date - 12/21/2023) (Collection Date - 12/21/2023) Value Reference Range Sodium 139 135-145 - mmol/L Bilirubin Total 0.7 0.0-1.0 - mg/dL Aspartate Amino Transferase 30 5-37 - U/L Alanine Aminotransferase 30 0-40 - U/L Total Protein 7.0 6.5-8.0 - g/dL Albumin Level 4.3 3.5-5.0 - g/dL Alkaline Phosphatase 98 39-117 - U/L Potassium 3.7 3.3-5.1 - mmol/L Chloride 103 96-108 - mmol/L Carbon Dioxide 27 22-29 - mmol/L Anion Gap 13 12-20 - Blood Urea Nitrogen 14 9-16 - mg/dL Creatinine 1.14 0.5-1.4 - mg/dL Estimated Glomerular Filt Rate > 60 - Glucose Fasting 92 60-99 - mg/dL Calcium 9.6 8.4-10.2 - mg/dL * Examination: G eneral Examination: GENERAL APPEARANCE: w ell developed, well nourished, in no acute distress. HEAD: n ormocephalic, atraumatic. EYES: p upils equal, round, reactive to light and accommodation, sclera non-icteric. EARS: n ormal. ORAL CAVITY: m ucosa moist. THROAT: c lear. NECK/THYROID: n lazaro supple, full range of motion, no cervical lymphadenopathy, no bruits. SKIN: w arm and dry, no suspicious lesions. HEART: r egular rate and rhythm, S1, S2 normal, no murmurs.? LUNGS: c lear to auscultation bilaterally. ABDOMEN: s oft, nontender, nondistended, bowel sounds present, normal, no organomegaly , no masses palpable. RECTAL EXAM: n ormal tone, no external hemorrhoids, no masses palpable, prostate normal, no stool sent with cards. MALE GENITOURINARY: c ircumcised, no penile lesions or discharge, testes descended bilaterally, no testicular mass. EXTREMITIES: n o clubbing, cyanosis, or edema. NEUROLOGIC: n onfocal, motor strength normal upper and lower extremities, sensory exam intact. Assessment: * Assessment: 1. A nnual physical exam - Z00.00 (Primary) 2 . E ssential hypertension - I10 3 .?Avascular necrosis - M87.00 4 . M ixed hyperlipidemia - E78.2 5 . V itamin D deficiency - E55.9 6 . A candi reflux - K21.9 7 . C olon cancer screening - Z12.11 8 . D epression screening - Z13.31 Plan: * Treatment: 2. E ssential hypertension Notes: doing well on meds, will cntinue current regiment. 3. A vascular necrosis Notes: has a little tenderness with walking, will continue to monitor. 4. M ixed hyperlipidemia Notes: stable, will continue current regiment. 5. V itamin D deficiency Notes: stable, will continue current regiment. 6. A candi reflux Notes: stable, will continue curren regiment. 7. C olon cancer screening Notes: no stool , sent hme with cards to return to office when completed. 8. D epression screening Notes: negative screen. * Procedure Codes: * Follow Up: 6 Months (Reason: bp) * * Sign off status: Completed true * Provider: Elaina Galeano MD Date: 0 12/28/2023 Generated for Ashli pham/Kristie/Derrekitting on: 1 06/19/2024 11:05 PM EST History and Physical Notes * HPI (History of Present Illness) Category Sub-Category Detail Notes Category Not es Symptom(s) patient is a 68 yo male here for yearly evaluation with review of recent labs and follow up of chronic issues. Depression Screening PHQ-9 Little inte rest or pleasure in doing things: Not at all Feeling down, depressed, or hopeless: No t at all Trouble falling or staying asleep, or sl eeping too much: Not at all Feeling tired or having little energy: N ot at all Poor appetite or overeating: Not at all Feeling bad about yourself o r that you are a failure, or have let yourself or your family down: Not at all Trouble concentrating on thi ngs, such as reading the newspaper or watching television: Not at all Moving or speaking so slowly that other people could have noticed; or the opposite, being so fidgety or restless that you have been moving around a lot more than usual: Not at all Thoughts that you would be b constanza off or of hurting yourself in some way: Not at all Total Score: 0 Interpretation and Intervention Depression Scree katy Findings: Negative Follow-Up for Depression: : review of PH Q-9 found negative result, no follow-up needed SDOH Questions SDOH Questions In the past year have you been worried about losing housing?: No In the past year have you or any family members you live with been unable to get any of the following when it was really needed? Check all that apply:: None Fall Risk History Have you had any falls with injury i n the past year?: No Have you had two or more falls in the year?: No Communication Needs Communication Needs Does the patient have a hearing impairment: Yes If yes, what is the hearing impairment?: Hard of hearing, Hearing Aids Does the patient have a vision impairmen t?: Yes If yes, what is the vision impairment?: Glasses Does the patient have a cognition impair ment?: No Examination Category Sub-Category Detail Notes Category Not es General Examination GENERAL APPEARANCE: well dev eloped, well nourished, in no acute distress HEAD: normocephalic, atrau matic EYES: pupils equal, round, reactive to light and accommodation, sclera non-icteric EARS: normal THROAT: clear NECK/THYROID: neck supple, full ra nge of motion, no cervical lymphadenopathy, no bruits HEART: regular rate and rhy thm, S1, S2 normal, no murmurs LUNGS: clear to auscultatio n bilaterally ABDOMEN: soft, nontender, non distended, bowel sounds present, normal, no organomegaly , no masses palpable NEUROLOGIC: nonfocal, motor stre ngth normal upper and lower extremities, sensory exam intact SKIN: warm and dry, no yajaira picious lesions EXTREMITIES: no clubbing, cyanosi s, or edema MALE GENITOURINARY: circumcised, no peni le lesions or discharge, testes descended bilaterally, no testicular mass RECTAL EXAM: normal tone, no exte rnal hemorrhoids, no masses palpable, prostate normal, no stool sent with cards ORAL CAVITY: mucosa moist
--- OUTSIDE RECORDS SUMMARY | 2024-03-28 06:00 | XMS_ITS ---
Author Organization Yaya Galeano MD Address [address] [place] [phone] Care Team Providers Care Mammalogist Name Role Phone Yaya Galeano Primary Care Provider REASON FOR VISIT flu shot Immunizations Vaccine Route Administration Date Status Comme nts Fluarix Quadrivalent - 150 IM Intramuscular 03/28/2024 Adm inistered Encounters Encounter Location Date Provider Diagnosis Yaya Galeano MD [address] [place] [phone] 03/28/2024 Yaya Galeano Encounter for immunization Z23 Assessments Encounter Date Diagnosis (ICD Code) Assessment Notes Treatment Notes Treatment Clinical Notes Section Notes 03/28/2024 Encounter for immunization (ICD-10 - Z23) Plan Of Treatment Next Appt Details Provider Name:Yaya hilliard, 07/03/2025 08:00:00 AM, [address] [facility], Suite [facility], [place], [place], [phone], Provider Name:Yaya hilliard, 07/18/2025 10:15:00 AM, [address], [address], [place], [place], [phone], Provider Name:Yaya hilliard, 12/25/2025 07:45:00 AM, [address], [address], [place], [phone], Provider Name:Yaya Caicedo Chloeraine conorr, 01/01/2026 08:30:00 AM, [address] [facility], [address], [place], [phone], Progress Notes * Casey CABRERADOB:[birth year] (68 yo M)Acc No.[id number]:03/28/2024 Progress Note Patient: Casey Boothe Provider: Elaina Galeano MD :1955 A ge:68 Y S ex:Male Date:03/28/2024 Address:[address] [place], [place] [phone] Subjective: * Chief Complaints: * F marcelo shot * Medical History: * Surgical History: * Hospitalization/Major Diagno stic Procedure: * Medications: Objective: Assessment: * Assessment: 1. E ncounter for immunization - Z23 (Primary) Plan: * Treatment: * Immunizations: Fluarix Quadrivalent - 150 : 0.5 mL (Dose No:1) (Route: Intramuscular) given by Adeline Cullen on Left Deltoid * Procedure Codes: 9 0656 FLU VACCINE NO PRESERV 3 & >81028 IMMUNIZATION ADMIN * * Sign off status: Completed true * Provider: Elaina Galeano MD Date: Generated for Ashli pham/Kristie/Liliana on: 06/19/2024 11:04 PM EST
--- OUTSIDE RECORDS SUMMARY | 2024-05-20 02:15 | XMS_ITS ---
Author Organization Yaya Galeano MD Address [address] [place], [place] [phone] Care Team Providers Care Timber Girdler Name Role Phone Yaya Galeano Primary Care Provider [phone] Results Component Value Reference Range Notes Liver Panel Reviewed date:05/20/2024 04:27:52 PM Interpretation: Performing Lab:[facility], [place], [address] [place] [phone] Notes/Report: Bilirubin Total 0.8 0.0-1.0 mg/dL Bilirubin Direct 0.3 0.0-0.5 mg/dL Aspartate Amino Transferase 34 5-37 U/L Alanine Aminotransferase 33 0-40 U/L Total Protein 6.7 6.5-8.0 g/dL Albumin Level 4.1 3.5-5.0 g/dL Alkaline Phosphatase 95 39-117 U/L Lipid Panel with Reflex Reviewed date:05/20/2024 04:27:32 PM Interpretation: Performing Lab:[facility], [place], [address] [place] [phone] Notes/Report: Triglycerides 90 <150 mg/dL Desirable Triglyceride: less than 150 mg/dL Borderline High Triglyceride 150-199 mg/dL High Triglyceride: 200-499 mg/dL Very High Triglyceride: greater than or equal to 5OO mg/dL Cholesterol 131 <200 mg/dL Desirable Cholesterol: less than 200 mg/dL Borderline High Cholesterol: 200-239 mg/dL High Cholesterol: greater than 239 mg/dL LDL Cholesterol Calculated 69 <100 mg/dL Desirable LDL: less than 100 mg/dL Near Optimal/Above Optimal LDL: 110-129 mg/dL Borderline High LDL: 130-159 mg/dL High LDL: 160-189 mg/dL Very High LDL: greater than or equal to 190 mg/dL HDL Cholesterol 44 >40 mg/dL Desirable HDL: greater than 40 mg/dL Note: This HDL assay may give artificially low results in patients with liver disease. REASON FOR VISIT FASTING LIPIDS Encounters Encounter Location Date Provider Diagnosis Yaya Galeano MD [address] [place] [phone] 05/20/2024 Yaya Galeano Mixed hyperlipidemia E78.2 Assessments Encounter Date Diagnosis (ICD Code) Assessment Notes Treatment Notes Treatment Clinical Notes Section Notes 05/20/2024 Mixed hyperlipidemia (ICD-10 - E78.2) Plan Of Treatment Next Appt Details Provider Name:Yaya hilliard, 07/03/2025 08:00:00 AM, [address] [place] [address], [address], [phone], Provider Name:Yaya hilliard, 07/18/2025 10:15:00 AM, [address] [place] [address], [phone], Provider Name:Yaya hilliard, 12/25/2025 07:45:00 AM, [address] [place] [address], [address], [phone], Provider Name:Yaya hilliard, 01/01/2026 08:30:00 AM, [address] [place] [address], [phone], Progress Notes * Melony CABRERA:[birth year] (69 yo M)Acc No.[id number]:05/20/2024 Progress Note Patient: Casey SALDIVAR Provider: Elaina Galeano MD :1955 A ge:68 Y S ex:Male Date:05/20/2024 Address:[address] [place], [place] [phone] Subjective: * Chief Complaints: * 1 . FASTING LIPIDS. * Medical History: Objective: * Vitals: Assessment: * Assessment: 1. M ixed hyperlipidemia - E78.2 (Primary) Plan: * Treatment: * Procedure Codes: 3 6415 VENIPUNCT, ROUTINE* * * The named appointment provid er may or may not be the originator of this progress note, and it is not deemed complete until electronically signed by the appointment provider. Sign off status: Pending * Provider: Elaina Galeano MD Date: 07/21/2023 Generated for Ashli pham/Kristie/Derrekitting on: 06/19/2024 11:03 PM EST
--- OUTSIDE RECORDS SUMMARY | 2024-05-27 04:15 | XMS_ITS ---
Author Organization Yaya Galeano MD Address [address] [place], [place] [phone] Care Team Providers Care Department Secretary Name Role Phone Yaya Galeano Primary Care [...] kg/m2 05/27/2024 weight is down 5 pounds [facility] 12-28-23 Encounters Encounter Location Date Provider Diagnosis Yaya Galeano MD [address] [place] [phone] 05/27/2024 Yaya Galeano Mixed hyperlipidemia E78.2 and [...] Details Provider Name:Yaya hilliard, 07/03/2025 08:00:00 AM, [address] [place] [address], Suite [facility], [place], [place], [phone], Provider Name:Yaya hilliard, 07/18/2025 10:15:00 AM, [address] [place] [address], [address], [phone], Provider Name:Yaya hilliard, 12/25/2025 07:45:00 AM, [address] [place] [address], [place] [address], [place], [place], [phone], Provider Name:Yaya Guerrero ier, 01/01/2026 08:30:00 AM, [address] [facility], [address], [place], [place], [phone], Progress Notes * Casey CABRERADOB:[birth year] (68 yo M)Acc No.[id number]:05/27/2024 Progress Notes Patient: Casey Boothe Provider: Elaina Galeano MD :1955 A ge:68 Y S ex:Male Date:05/27/2024 Address:[address] [place], [place] [phone] Subjective: * Chief Complaints: * 6 MOF/U [...] Date: 07/28/2023 Generated for Ashli pham/Kristie/Derrekitting on: 06/19/2024 11:04 PM EST History and Physical Notes * [...]
--- OUTSIDE RECORDS SUMMARY | 2024-06-09 10:15 | XMS_ITS ---
Author Organization Yaya Galeano MD Address [address] [place], [place] [phone] Care Team Providers Care Headliner Installer Name Role Phone Yaya Galeano Primary Care Provider Allergies Allergen (clinical drug ingredient) Drug/Non Drug Allergy documented on EMR Reaction Allergy Type Onset Date Status lisinopril Lisinopril cough Drug Allergy Activ e REASON FOR VISIT c/o fatigue, headache, runny nose x 1 week terrible dizziness, Video [phone] Medications Medication SIG (Take, Route, Frequency, Duration) Notes Start Date End Date Status Sildenafil Citrate 100 MG TAKE ONE-HALF TABLET BY MOUTH ONCE DAILY IF NEEDED for 60 Active Esomeprazole Magnesium 40 MG TAKE 1 CAPSULE ONCE DAILY for 90 Active Benadryl Allergy 25 MG 1 tablet at bedti me as needed Orally Once a day for 30 day(s) Active Valsartan-hydroCHLOROthiazi de 320-12.5 MG TAKE 1 TABLET DAILY Active Atorvastatin Calcium 20 MG TAKE 1 TABLET DAILY Active Zithromax Z-James 250 MG 2 tablet on the irst day, then 1 tablet daily for 4 days Orally Once a day for 5 day(s) 06/09/2024 Active Famotidine 20 MG 1 tablet at bedtime as needed Orally Once a day for 30 day(s) Active Vitamin D 50 MCG (1999) 1 tablet Oral ly Once a day Active Betamethasone Dipropionate 0.05 % 1 application Externally Once a day 08/08/2019 Active Vital Signs Height 66.5 in 06/09/2024 Weight 160 lbs 06/09/2024 BMI 25.44 kg/m2 06/09/2024 weight is 160 BP not taken a t home Encounters Encounter Location Date Provider Diagnosis Yaya Galeano MD [address] [place] [phone] 06/09/2024 Yaya Galeano Acute recurrent frontal sinusitis J01.11 Assessments Encounter Date Diagnosis (ICD Code) Assessment Notes Treatment Notes Treatment Clinical Notes Section Notes 06/09/2024 Acute recurrent frontal sinusitis (ICD-10 - J01.11) Plan Of Treatment Medication Medication Name Sig Start Date Stop Date Notes Zithromax Z-James 250 MG 2 tablet on the f irst day, then 1 tablet daily for 4 days Orally Once a day for 5 day(s) 06/09/2024 Next Appt Details Provider Name:Yaya hilliard, 07/03/2025 08:00:00 AM, [address] [place] [address], [phone], Provider Name:Yaya hilliard, 07/18/2025 10:15:00 AM, [address] [place] [address], [phone], Provider Name:Yaya hilliard, 12/25/2025 07:45:00 AM, [address] [place] [address], [phone], Provider Name:Yaya hilliard, 01/01/2026 08:30:00 AM, [address] [place] [address], [phone], Progress Notes * Melony CABRERA:[birth year] (68 yo M)Acc No.[id number]:06/09/2024 Patient: Casey Boothe Provider: Elaina Galeano MD :1955 A ge:68 Y S ex:Male Date:06/09/2024 [address] [facility] Subjective: * Chief Complaints: * C /o fatigue, headache, runny nose x 1 week terrible dizzinessVideo [phone] * HPI: S ymptom(s): Telehealth L ocation of provider rendering services: [address], [address], L ocation of patient: a t address listed in demographics for today's visit, P atient identification confirmed using: JESÚS Hickey ame, SSN, Insurance information, T elehealth method: T elephone only. Patient not visible to care provider., C onsent: P atient verbally consented to treatment, Patient verbally consented to billing insurance company, Patient informed of any privacy concerns related to method of visit. patient is a 68 yo male video telehealth visit, with complaint of sick for one week. wants to sleep all day. terrible headache and constantly blowing nose with thick green mucous.has been out of work for a week. * ROS: G eneral/Constitutional: Denies C hills. A dmits F atigue. D enies F ever. A dmits H eadache. E NT: Patient denies d ecreased sense of smell , any loss of taste , sore throat. R espiratory: Denies C ough. D [...] Delayed Release TAKE 1 CAPSULE ONCE DAILY Sildenafil Citrate 100 MG Tablet TAKE ONE-HALF TABLET BY MOUTH ONCE DAILY IF NEEDED Atorvastatin Calcium 20 MG Tablet TAKE 1 TABLET DAILY Valsartan-hydroCHLOROthiazide 320-12.5 MG Tablet TAKE 1 TABLET DAILY Benadryl Allergy 25 MG Tablet 1 tablet at bedtime as needed Orally Once a dayMedication List reviewed and reconciled with the patientTaking Famotidine 20 MG Tablet 1 tablet at bedtime as needed Orally Once a dayTaking Betamethasone Dipropionate 0.05 % Cream 1 application Externally Once a dayTaking Vitamin D 50 MCG (1999) Tablet 1 tablet Orally Once a dayTaking Esomeprazole Magnesium 40 MG Capsule Delayed Release TAKE 1 CAPSULE ONCE DAILY Taking Sildenafil Citrate 100 MG Tablet TAKE ONE-HALF TABLET BY MOUTH ONCE DAILY IF NEEDED Taking Atorvastatin Calcium 20 MG Tablet TAKE 1 TABLET DAILY Taking Valsartan-hydroCHLOROthiazide 320-12.5 MG Tablet TAKE 1 TABLET DAILY Taking Benadryl Allergy 25 MG Tablet 1 tablet at bedtime as needed Orally Once a dayMedication List reviewed and reconciled with the patient * Allergies: L isinopril: coughyes[Allergies Verified] Objective: * Vitals: H t: 66.5, Wt:160, BMI:25.44 weight is 160 BP not taken at home. Assessment: * Assessment: 1. A calderon recurrent frontal sinusitis - J01.11 (Primary) Plan: * Treatment: * Procedure Codes: * * Sign off status: Completed true * Provider: Elaina Galeano MD Date: 0 06/09/2024 Generated for Ashli pham/Kristie/Liliana on: 06/19/2024 11:05 PM EST History and Physical Notes * HPI (History of Present Illness) Category Sub-Category Detail Notes Category Not es Symptom(s) [facility] [address], [address] patient is a 68 yo male video telehealth visit, with complaint of sick for one week. wants to sleep all day. terrible headache and constantly blowing nose with thick green mucous.has been out of work for a week Location of patient:: at address listed in demographics for today's visit Patient identification confirmed using:: Name, , SSN, Insurance information Telehealth method:: Telephone only. Jessie ent not visible to care provider. Consent:: Patient verbally c onsented to treatment, Patient verbally consented to billing insurance company, Patient informed of any privacy concerns related to method of visit
--- OUTSIDE RECORDS SUMMARY | 2024-12-23 02:15 | XMS_ITS ---
Author Organization Yaya Galeano MD Address [address] [place], [place] [id number] Care Team Providers Care Civil Preparedness Officer Name Role Phone Yaya Galeano Primary Care Provider [phone] Results Component Value Reference Range Notes Complete Blood Count Auto Di ff Reviewed date:12/23/2024 09:26:23 PM Interpretation: Performing Lab:[facility], [address] [place] [phone] Notes/Report: White Blood Count 6.1 4.8-10.8 X10*3/uL Red Blood Count 4.36 4.60-5.80 X10*6/uL Hemoglobin 14.3 14.0-18.0 g/dl Hematocrit 40.4 42.0-52.0 % Mean Corpuscular Volume 92.7 80.0-98.0 fL Mean Corpuscular Hemoglobin 32.8 27.0-33.0 pg Mean Corpuscular HGB Conc 35.4 31.0-36.0 g/dl Red Cell Distribution Width 12.5 11.0-16.0 % Platelet Count 327 160-400 X10*3/uL Mean Platelet Volume 8.7 9.4-12.4 fL Neutrophils Percent Auto 50.2 45-73 % Imm Gran Pct Auto 0.7 0.0-0.4 % Lymphocytes Percent Auto 34.6 20-40 % Monocytes Percent Auto 10.9 2-11 % Eosinophils Percent Auto 2.1 0-4 % Basophils Percent Auto 1.5 0-2 % NRBC Pct Auto 0.0 0.0-0.2 /100WBC Neutrophils Absolute Auto 3.1 2.0-8.3 x10*3/u L Imm Gran Abs Auto 0.04 0.00-0.03 X10*3/uL Lymphocytes Absolute Auto 2.1 1.2-4.9 X10*3/u L Monocytes Absolute Auto 0.7 0.1-1.2 X10*3/uL Eosinophils Absolute Auto 0.1 0.0-0.4 X10*3/u L Basophils Absolute Auto 0.1 0.0-0.2 X10*3/uL NRBC Abs Auto 0.000 0.0-0.012 X10*3/uL Comprehensive [place]. Panel Fa st Reviewed date:12/23/2024 09:26:57 PM Interpretation: Performing Lab:[facility], [address] [place] [phone] Notes/Report: Sodium 134 135-145 mmol/L Potassium 3.8 3.3-5.1 mmol/L Chloride 96 96-108 mmol/L Carbon Dioxide 30 22-29 mmol/L Anion Gap 12 12-20 Blood Urea Nitrogen 11 9-16 mg/dL Creatinine 0.94 0.5-1.4 mg/dL Estimated Glomerular Filt Rate > 60 Chronic Kidney Disease: Estimated GFR < 60 mL/min/1.73m2 Severe Kidney Disease: Estimated GFR < 15 mL/min/1.73m2 Glucose Fasting 86 60-99 mg/dL Calcium 9.1 8.4-10.2 mg/dL Bilirubin Total 0.9 0.0-1.0 mg/dL Aspartate Amino Transferase 38 5-37 U/L Alanine Aminotransferase 35 0-40 U/L Total Protein 6.6 6.5-8.0 g/dL Albumin Level 4.5 3.5-5.0 g/dL Alkaline Phosphatase 102 39-117 U/L Lipid Panel Reviewed date:12/23/2024 09:17:35 PM Interpretation: Performing Lab:[facility], [address] [place] [phone] Notes/Report: Triglycerides 106 <150 mg/dL Desirable Triglyceride: less than 150 mg/dL Borderline High Triglyceride 150-199 mg/dL High Triglyceride: 200-499 mg/dL Very High Triglyceride: greater than or equal to 5OO mg/dL Cholesterol 156 <200 mg/dL Desirable Cholesterol: less than 200 mg/dL Borderline High Cholesterol: 200-239 mg/dL High Cholesterol: greater than 239 mg/dL LDL Cholesterol Calculated 78 <100 mg/dL Desirable LDL: less than 100 mg/dL Near Optimal/Above Optimal LDL: 110-129 mg/dL Borderline High LDL: 130-159 mg/dL High LDL: 160-189 mg/dL Very High LDL: greater than or equal to 190 mg/dL HDL Cholesterol 57 >40 mg/dL Desirable HDL: greater than 40 mg/dL Note: This HDL assay may give artificially low results in patients with liver disease. PSA,Total (Free>4and<10) Reviewed date:12/23/2024 09:17:21 PM Interpretation: Performing Lab:[facility], [address] [place] [phone] Notes/Report: PSA,Total (Free>4and<10) 0.60 0.00-4.00 ng/mL A Free PSA was not [...] Immunoassay (CMIA) Vitamin D 25-OH Total Reviewed date:12/23/2024 09:18:48 PM Interpretation: Performing Lab:[facility], [address] [place] [phone] Notes/Report: Vitamin D 25-OH Total 75.2 >30 ng/mL Health Based Reference Values* < 20 ng/mL Deficient 20-30 ng/mL Insufficient > 30 ng/mL Sufficient *Ivanna SCHNEIDER. N Engl J Med. 2007;357:266-280 There is no well-established upper level of normal vitamin D levels. Some laboratories use 50 ng/mL as an upper limit of normal. However, toxicity is patient-dependent and may occur at any level. Careful correlation with the patient's presentation is necessary and, if there is concern for vitamin D toxicity, treatment should be considered irrespective of the serum level. Care must be taken in interpreting Vitamin [...] LC-MS/MS. UA ClnCatch+Micro w/rflx Cul t Reviewed date:12/25/2024 09:28:00 AM Interpretation: Performing Lab:[facility], [address] [place] [phone] Notes/Report: Urine, Clean Catch Color Urine Yellow Appearance Urine Clear PH 7.5 5.0-9.0 Glucose Urine UA Negative Negative mg/dL Urine Blood Negative Negative Specific [place] - Urine 1.015 1.005-1.025 Urine Protein Negative Neg-Trace mg/dL Urine Ketones Negative Negative mg/dL Nitrite Urine Negative Negative Leukocyte Esterase Urine Negative Negative RBC Urine 0-2 0-2 /HPF WBC Urine 0-5 0-5 /HPF Squamous Epithelial Cell Urine 0-2 0-2 /HPF Bacteria Urine None Seen None Seen Hyaline Casts Urine 0-2 0-2 /LPF REASON FOR VISIT FASTING LABS Encounters Encounter Location Date Provider Diagnosis Yaya Galeano MD [address] [place], [place] [phone] 12/23/2024 Yaya Galeano Blood tests for routine general physical examination Z00.00 ; Essential hypertension I10 ; Mixed hyperlipidemia E78.2 and Vitamin D deficiency E55.9 Assessments Encounter Date Diagnosis (ICD Code) Assessment Notes Treatment Notes Treatment Clinical Notes Section Notes 12/23/2024 Blood tests for routine general physical examination (ICD-10 - Z00.00) 12/23/2024 Essential hypertension (ICD-10 - I10) 12/23/2024 Mixed hyperlipidemia (ICD-10 - E78.2) 12/23/2024 Vitamin D deficiency (ICD-10 - E55.9) Plan Of Treatment Next Appt Details Provider Name:Yaya Guerrero ier, 07/03/2025 08:00:00 AM, [address] [place] [address], [address], [place], [place], [phone], Provider Name:Yaya Guerrero ier, 07/18/2025 10:15:00 AM, [address] [place] [address], [address], [place], [place], [phone], Provider Name:Yaya Guerrero ier, 12/25/2025 07:45:00 AM, [address] [place] [address], [address], [place], [place], [phone], Provider Name:Yaya Guerrero conorr, 01/01/2026 08:30:00 AM, [address] [place] [address], [address], [place], [place], [phone], Progress Notes * Casey CABRERADOB:[birth year] (69 yo M)Acc No.[id number]:12/23/2024 Progress Note Patient: Casey SALDIVAR Provider: Elaina Galeano MD :1955 A ge:69 Y S ex:Male Date:12/23/2024 Address:[address] [place], [place] [phone] Subjective: * Chief Complaints: * 1 . [...] Auto Diff (Collection Date & Time - 12/23/2024 07:15 AM) L AB: Comprehensive [place]. Panel Fast (Collection Date & Time - 12/23/2024 07:15 AM) L AB: Lipid Panel (Collection Date & Time - 12/23/2024 07:15 AM) L AB: PSA,Total (Free>4and<10) (Collection Date & Time - 12/23/2024 07:15 AM) L AB: Vitamin D 25-OH Total (Collection Date & Time - 12/23/2024 07:15 AM) L AB: UA ClnCatch+Micro w/rflx Cult (Collection Date & Time - 12/23/2024 07:15 AM) 3. M ixed hyperlipidemia L AB: Complete Blood Count Auto Diff (Collection Date & Time - 12/23/2024 07:15 AM) L AB: Comprehensive [place]. Panel Fast (Collection Date & Time - 12/23/2024 07:15 AM) L AB: Lipid Panel (Collection Date & Time - 12/23/2024 07:15 AM) L AB: PSA,Total (Free>4and<10) (Collection Date & Time - 12/23/2024 07:15 AM) L AB: Vitamin D 25-OH Total (Collection Date & Time - 12/23/2024 07:15 AM) L AB: UA ClnCatch+Micro w/rflx Cult (Collection Date & Time - 12/23/2024 07:15 AM) 4. V itamin D deficiency L AB: Complete Blood Count Auto Diff (Collection Date & Time - 12/23/2024 07:15 AM) L AB: Comprehensive [place]. Panel Fast (Collection Date & Time - 12/23/2024 07:15 AM) L AB: Lipid Panel (Collection Date & Time - 12/23/2024 07:15 AM) L AB: PSA,Total (Free>4and<10) (Collection Date & Time - 12/23/2024 07:15 AM) L AB: Vitamin D 25-OH Total (Collection Date & Time - 12/23/2024 07:15 AM) L AB: UA ClnCatch+Micro w/rflx Cult (Collection Date & Time - 12/23/2024 07:15 AM) * Procedure Codes: 3 6415 VENIPUNCT, ROUTINE* * * The named appointment provid er may or may not be the originator of this progress note, and it is not deemed complete until electronically signed by the appointment provider. Sign off status: Pending * Provider: Elaina Galeano MD Date: 0 12/23/2024 Generated for Ashli pham/Kristie/Liliana on: 06/19/2024 11:04 PM EST
--- OUTSIDE RECORDS SUMMARY | 2024-12-30 03:30 | XMS_ITS ---
Author Organization Yaya Galeano MD Address [address] [place], [place] [phone] Care Team Providers Care Pig Machine Operator Helper Name Role Phone Yaya Galeano Primary Care Provider [phone] Allergies Allergen (clinical drug ingredient) Drug/Non Drug Allergy documented on EMR Reaction Allergy Type Onset Date Status lisinopril Lisinopril cough Drug Allergy Activ e REASON FOR VISIT ANNUAL EXAM, Due for Colorectal Cancer Screening Medications Medication SIG (Take, Route, Frequency, Duration) Notes Start Date End Date Status Sildenafil Citrate 100 MG TAKE ONE-HALF TABLET BY MOUTH ONCE DAILY IF NEEDED for 60 Active Atorvastatin Calcium 20 MG TAKE 1 TABLET DAILY Active Betamethasone Dipropionate 0.05 % 1 application Externally Once a day 08/08/2019 Active Valsartan-hydroCHLOROthiazi de 320-12.5 MG TAKE 1 TABLET DAILY Active Benadryl Allergy 25 MG 1 tablet at bedti me as needed Orally Once a day for 30 day(s) Active Esomeprazole Magnesium 40 MG TAKE 1 CAPSULE DAILY Active Vitamin D 50 MCG (1999) 1 tablet Oral ly Once a day Active Famotidine 20 MG 1 tablet at bedtime as needed Orally Once a day Active Social History Tobacco Use: Social History [...] Signs Blood pressure systolic 102 mm Hg 12/31/19 25 Blood pressure diastolic 68 mm Hg 025 Height 66.5 in 12/30/2024 Weight 158 lbs 12/30/2024 BMI 25.12 kg/m2 12/30/2024 weight is down 2 pounds [facility] 06-09-24 Encounters Encounter Location Date Provider Diagnosis Yaya Galeano MD [address] [place] [address] [place] [phone] 12/30/2024 Yaya Galeano Annual physical exam Z00.00 ; Encounter for screening for malignant neoplasm of colon Z12.11 ; Encounter for screening for malignant neoplasm of rectum Z12.12 ; Shingles B02.9 ; Essential hypertension I10 ; Mixed hyperlipidemia E78.2 ; Vitamin D deficiency E55.9 ; Acid reflux K21.9 and Depression screening Z13.31 Assessments Encounter Date Diagnosis (ICD Code) Assessment Notes Treatment Notes Treatment Clinical Notes Section Notes 12/30/2024 Annual physical exam (ICD-10 - Z00.00) labs reviewed and discussed with patient 12/30/2024 Encounter for screening for malignant neoplasm of colon (ICD-10 - Z12.11) THE COLOGUARD ORDER WAS FAXED TO [facility] 12/30/2024 Encounter for screening for malignant neoplasm of rectum (ICD-10 - Z12.12) 12/30/2024 Shingles (ICD-10 - B02.9) advised to get shingles vaccine 12/30/2024 Essential hypertension (ICD-10 - I10) doing well, will cntinue current regiment 12/30/2024 Mixed hyperlipidemia (ICD-10 - E78.2) stable, will continue current regiment 12/30/2024 Vitamin D deficiency (ICD-10 - E55.9) stable, will continue current regiment 12/30/2024 Acid reflux (ICD-10 - K21.9) doing well, will continue curren regiment 12/30/2024 Depression screening (ICD-10 - Z13.31) negative screen Plan Of Treatment Medication Medication Name Sig Start Date Stop Date Notes Atorvastatin Calcium 20 MG TAKE 1 TABLET DAILY Valsartan-hydroCHLOROthiazid e 320-12.5 MG TAKE 1 TABLET DAILY Esomeprazole Magnesium 40 MG TAKE 1 CAPSULE DAILY Vitamin D 50 MCG (1999) 1 tablet Orally Once a day Famotidine 20 MG 1 tablet at bedtime as needed Orally Once a day Treatment Notes Assessment Notes Annual physical exam labs reviewed and d iscussed with patient Encounter for screening for malignant neoplasm of colon THE ORDER WAS FAXED TO [facility] advised to get shing les vaccine Essential hypertension doing well, will cntinue current regiment Mixed hyperlipidemia stable, will contin ue current regiment Vitamin D deficiency stable, will contin ue current regiment Acid reflux doing well, will con tinue curren regiment Depression screening negative screen Pending Test Test Name Order Date OG12/30/2024 Next Appt Details Follow Up: 6 Months, Reason: Provider Name:Yaya hilliard, 07/03/2025 08:00:00 AM, [address] [place] [address], [address], [phone], Provider Name:Yaya hilliard, 07/18/2025 10:15:00 AM, [address] [place] [address], [address], [phone], Provider Name:Yaya hilliard, 12/25/2025 07:45:00 AM, [address] [place] [address], [address] [place] [address], [phone], Provider Name:Yaya hilliard, 01/01/2026 08:30:00 AM, [address] [place] [address], [address], [phone], Progress Notes * Casey CABRERADOB:[birth year] (69 yo M)Acc No.[id number]:12/30/2024 Progress Notes Patient: Casey SALDIVAR Provider: Elaina Galeano MD :1955 A ge:69 Y S ex:Male Date:12/30/2024 Address:[address] [place], [place] [phone] Subjective: * Chief Complaints: * A NNUAL EXAMDue for Colorectal Cancer Screening * HPI: D epression Screening: PHQ-9 L [...] oes the patient have a hearing impairment N o, D oes the patient have a vision [...] N one. S ymptom(s): patient is a 69 yo male hre for annual visit with review of recent labs and follow up of chronoici ssues h as some type of lesion on lateral leg for 6 months. * ROS: G eneral/Constitutional: Change in appetite d enies. C hills d enies. F ever d enies. O phthalmologic: Blurred vision d enies. D ischarge d enies. P ain d enies. E NT: Decreased hearing d enies. S ore throat d enies.?Swollen glands d enies. E ndocrine: Cold intolerance [...] F requent urination d enies. M usculoskeletal: Painful joints d enies. W eakness d enies. ? S kin: Dry skin d enies. I [...] per day. Children: yes. Community involvements: yes. Exercise: no. Home smoke detector use: yes. Housing: owning. Living with: spouse. Marital status: . Pets: none. Travel outside of the [place]: no. * Medications: T akingFamotidine 20 MG Tablet 1 tablet at bedtime as needed Orally Once a day Betamethasone Dipropionate 0.05 % Cream 1 application Externally Once a day Vitamin D 50 MCG (2000 UT) Tablet 1 tablet Orally Once a day Sildenafil Citrate 100 MG Tablet TAKE ONE-HALF TABLET BY MOUTH ONCE DAILY IF NEEDED Benadryl Allergy 25 MG Tablet 1 tablet at bedtime as needed Orally Once a day Esomeprazole Magnesium 40 MG Capsule Delayed Release TAKE 1 CAPSULE DAILY Valsartan-hydroCHLOROthiazide 320-12.5 MG Tablet TAKE 1 TABLET DAILY Atorvastatin Calcium 20 MG Tablet TAKE 1 TABLET DAILY Medication List reviewed and reconciled with the patientTaking Famotidine 20 MG Tablet 1 tablet at bedtime as needed Orally Once a day Taking Betamethasone Dipropionate 0.05 % Cream 1 application Externally Once a day Taking Vitamin D 50 MCG (2000 UT) Tablet 1 tablet Orally Once a day Taking Sildenafil Citrate 100 MG Tablet TAKE ONE-HALF TABLET BY MOUTH ONCE DAILY IF NEEDED Taking Benadryl Allergy 25 MG Tablet 1 tablet at bedtime as needed Orally Once a day Taking Esomeprazole Magnesium 40 MG Capsule Delayed Release TAKE 1 CAPSULE DAILY Taking Valsartan-hydroCHLOROthiazide 320-12.5 MG Tablet TAKE 1 TABLET DAILY Taking Atorvastatin Calcium 20 MG Tablet TAKE 1 TABLET DAILY Medication List reviewed and reconciled with the patient * Allergies: L isinopril: coughyes[Allergies Verified] Objective: * Vitals: H t: 66.5, Wt: 158, BMI:25.12, BP:102/68, Wt-k.67. weight is down 2 pounds since 06-09-24. * P ast Orders: L ab:Vitamin D 25-OH Total (Order Date - 12/23/2024) (Collection Date & Time - 12/23/2024 07:15 AM) Value Reference Range Vitamin D 25-OH Total 75.2 >30 - ng/mL L ab:UA ClnCatch+Micro w/rflx Cult (Order Date - 12/23/2024) (Collection Date & Time - 12/23/2024 07:15 AM) Value Reference Range Color Urine Yellow - Appearance Urine Clear - PH 7.5 5.0-9.0 - Glucose Urine UA Negative Negative - mg/dL Urine Blood Negative Negative - Specific [place] - Urine 1.015 1.005-1.025 - Urine Protein Negative Neg-Trace - mg/dL Urine Ketones Negative Negative - mg/dL Nitrite Urine Negative Negative - Leukocyte Esterase Urine Negative Negative - RBC Urine 0-2 0-2 - /HPF WBC Urine 0-5 0-5 - /HPF Squamous Epithelial Cell Urine 0-2 0-2 - /HP F Bacteria Urine None Seen None Seen - Hyaline Casts Urine 0-2 0-2 - /LPF L ab:Complete Blood Count Auto Diff (Order Date - 12/23/2024) (Collection Date & Time - 12/23/2024 07:15 AM) Value Reference Range White Blood Count 6.1 4.8-10.8 - X10*3/uL Red Blood Count 4.36 L 4.60-5.80 - X10*6/uL Hemoglobin 14.3 14.0-18.0 - g/dl Hematocrit 40.4 L 42.0-52.0 - % Mean Corpuscular Volume 92.7 80.0-98.0 - fL Mean Corpuscular Hemoglobin 32.8 27.0-33.0 - pg Mean Corpuscular HGB Conc 35.4 31.0-36.0 - g/ dl Red Cell Distribution Width 12.5 11.0-16.0 - % Platelet Count 327 160-400 - X10*3/uL Mean Platelet Volume 8.7 L 9.4-12.4 - fL Neutrophils Percent Auto 50.2 45-73 - % Imm Gran Pct Auto 0.7 H 0.0-0.4 - % Lymphocytes Percent Auto 34.6 20-40 - % Monocytes Percent Auto 10.9 2-11 - % Eosinophils Percent Auto 2.1 0-4 - % Basophils Percent Auto 1.5 0-2 - % NRBC Pct Auto 0.0 0.0-0.2 - /100WBC Neutrophils Absolute Auto 3.1 2.0-8.3 - x10* 3/uL Imm Gran Abs Auto 0.04 H 0.00-0.03 - X10*3/uL Lymphocytes Absolute Auto 2.1 1.2-4.9 - X10* 3/uL Monocytes Absolute Auto 0.7 0.1-1.2 - X10*3/ uL Eosinophils Absolute Auto 0.1 0.0-0.4 - X10* 3/uL Basophils Absolute Auto 0.1 0.0-0.2 - X10*3/ uL NRBC Abs Auto 0.000 0.0-0.012 - X10*3/uL L ab:Comprehensive [place]. Panel Fast (Order Date - 12/23/2024) (Collection Date & Time - 12/23/2024 07:15 AM) Value Reference Range Sodium 134 L 135-145 - mmol/L Bilirubin Total 0.9 0.0-1.0 - mg/dL Aspartate Amino Transferase 38 H 5-37 - U/L Alanine Aminotransferase 35 0-40 - U/L Total Protein 6.6 6.5-8.0 - g/dL Albumin Level 4.5 3.5-5.0 - g/dL Alkaline Phosphatase 102 39-117 - U/L Potassium 3.8 3.3-5.1 - mmol/L Chloride 96 96-108 - mmol/L Carbon Dioxide 30 H 22-29 - mmol/L Anion Gap 12 12-20 - Blood Urea Nitrogen 11 9-16 - mg/dL Creatinine 0.94 0.5-1.4 - mg/dL Estimated Glomerular Filt Rate > 60 - Glucose Fasting 86 60-99 - mg/dL Calcium 9.1 8.4-10.2 - mg/dL L ab:Lipid Panel (Order Date - 12/23/2024) (Collection Date & Time - 12/23/2024 07:15 AM) Value Reference Range Triglycerides 106 <150 - mg/dL Cholesterol 156 <200 - mg/dL LDL Cholesterol Calculated 78 <100 - mg/dL HDL Cholesterol 57 >40 - mg/dL L ab:PSA,Total (Free>4and<10) (Order Date - 12/23/2024) (Collection Date & Time - 12/23/2024 07:15 AM) Value Reference Range PSA,Total (Free>4and<10) 0.60 0.00-4.00 - ng/ mL * Examination: G eneral Examination: GENERAL APPEARANCE: w ell developed, well nourished, in no acute distress. HEAD: n ormocephalic, atraumatic. EYES: p upils equal, round, reactive to light and accommodation, sclera non-icteric. EARS: n ormal. ORAL CAVITY: m ucosa moist. THROAT: c lear. NECK/THYROID: n lazaro supple, full range of motion, no cervical lymphadenopathy, no bruits. SKIN: w arm and dry, no suspicious lesions, abnormal with cluster of lesions on leg consistant/ with shingle. HEART: r egular rate and rhythm, S1, S2 normal, no murmurs.? LUNGS: c lear to auscultation bilaterally. ABDOMEN: s oft, nontender, nondistended, bowel sounds present, normal, no organomegaly , no masses palpable. RECTAL EXAM: n ormal tone, no external hemorrhoids, no masses palpable, prostate normal, stool guaiac negative. MALE GENITOURINARY: n ot examined. EXTREMITIES: n o clubbing, cyanosis, or edema. NEUROLOGIC: n onfocal, motor strength normal upper and lower extremities, sensory exam intact. Assessment: * Assessment: 1. A nnual physical exam - Z00.00 (Primary) 2 . E ncounter for screening for malignant neoplasm of colon - Z12.11 3 . E ncounter for screening for malignant neoplasm of rectum - Z12.12 4 . S hingles - B02.9 5 . E ssential hypertension - I10 6 . M ixed hyperlipidemia - E78.2 7 .?Vitamin D deficiency - E55.9 8 . A candi reflux - K21.9 9 .?Depression screening - Z13.31 Plan: * Treatment: 2. E ncounter for screening for malignant neoplasm of colon L AB: COLOGUARD Notes: THE COLOGUARD ORDER WAS FAXED TO [facility] 3. E ncounter for screening for malignant neoplasm of rectum L AB: COLOGUARD 4. S hingles Notes: advised to get shingles vaccine 5. E ssential hypertension Continue Valsartan-hydroCHLOROthiazide Tablet, 320-12.5 MG, TAKE 1 TABLET DAILY. Notes: doing well, will cntinue current regiment 6. M ixed hyperlipidemia Continue Atorvastatin Calcium Tablet, 20 MG, TAKE 1 TABLET DAILY. Notes: stable, will continue current regiment 7. V itamin D deficiency Continue Vitamin D Tablet, 50 MCG (2000 UT), 1 tablet, Orally, Once a day. Notes: stable, will continue current regiment 8. A candi reflux Continue Famotidine Tablet, 20 MG, 1 tablet at bedtime as needed, Orally, Once a day; C ontinue Esomeprazole Magnesium Capsule Delayed Release, 40 MG, TAKE 1 CAPSULE DAILY. Notes: doing well, will continue curren regiment 9. D epression screening Notes: negative screen * Procedure Codes: * Follow Up: 6 Months * * Sign off status: Completed true * Provider: Elaina Galeano MD Date: 0 12/30/2024 Generated for Ashli pham/Kristie/Liliana on: 1 06/19/2024 11:04 PM EST History and Physical Notes * HPI (History of Present Illness) Category Sub-Category Detail Notes Category Not es Symptom(s) patient is a 69 yo male hre for annual visit with review of recent labs and follow up of chronoici ssues has some type of lesion on lateral leg for 6 months Depression Screening PHQ-9 Little inte rest or [...] Does the patient have a hearing impairment: No Does the patient have a vision impairmen [...] SKIN: warm and dry, no yajaira picious lesions, abnormal with cluster of lesions on leg consistant/ with shingle EXTREMITIES: no clubbing, cyanosi s, or edema MALE GENITOURINARY: not examined RECTAL EXAM: normal tone, no exte rnal hemorrhoids, no masses palpable, prostate normal, stool guaiac negative ORAL CAVITY: mucosa moist
--- OUTSIDE RECORDS SUMMARY | 2025-03-31 04:15 | XMS_ITS ---
Author Organization Yaya Galeano MD Address [address] [place], [place] [phone] Care Team Providers Care Dietitian Teaching Name Role Phone Yaya Galeano Primary Care Provider Allergies Allergen (clinical drug ingredient) Drug/Non Drug Allergy documented on EMR Reaction Allergy Type Onset Date Status lisinopril Lisinopril cough Drug Allergy Activ e REASON FOR VISIT not sleeping stopped taking Benadryl 1 year ago has been taking Nyquil to sleep Medications Medication SIG (Take, Route, Frequency, Duration) Notes Start Date End Date Status Vitamin D 50 MCG (1999) 1 tablet Orally Once a day Active Esomeprazole Magnesium 40 MG TAKE 1 CAPSULE DAILY Active Valsartan-hydroCHLOROthia zide 320-12.5 MG TAKE 1 TABLET DAILY Acti ve Atorvastatin Calcium 20 MG TAKE 1 TABLET DAILY Active Benadryl Allergy 25 MG 1 tablet at bedti me as needed Orally Once a day for 30 day(s) Not-Taking traZODone HCl 50 MG 1 tablet at bedtime as needed Orally Once a day for 30 days 03/31/2025 Active Betamethasone Dipropionate 0.05 % 1 application Externally Once a day 08/08/2019 Active Sildenafil Citrate 100 MG TAKE ONE-HALF TABLET BY MOUTH ONCE DAILY IF NEEDED for 60 Active Famotidine 20 MG 1 tablet at bedtime as needed Orally Once a day Active Problems Problem Type SNOMED Code ICD Code Onset Dates Problem Status W/U Status Risk Notes Problem Insomnia (878484850) Insomnia (G47.00) Active confirmed Vital Signs Blood pressure systolic 112 mm Hg 03/31/20 25 Blood pressure diastolic 60 mm Hg 025 Height 66.5 in 03/31/2025 Weight 162 lbs 03/31/2025 BMI 25.75 kg/m2 03/31/2025 weight is up 4 pounds since 12-30-24 Encounters Encounter Location Date Provider Diagnosis Yaya Galeano MD [address] [place] [phone] 03/31/2025 Yaya Galeano Insomnia G47.00 Assessments Encounter Date Diagnosis (ICD Code) Assessment Notes Treatment Notes Treatment Clinical Notes Section Notes 03/31/2025 Insomnia (ICD-10 - G47.00) patient verbalized understanding of medication and directions for use Plan Of Treatment Medication Medication Name Sig Start Date Stop Date Notes traZODone HCl 50 MG 1 tablet at bedtime as needed Orally Once a day for 30 days 03/31/2025 Treatment Notes Assessment Notes Insomnia patient verbalized u nderstanding of medication and directions for use Next Appt Details Provider Name:Yaya hilliard, 07/03/2025 08:00:00 AM, [address] [place] [address], [phone], Provider Name:Yaya hilliard, 07/18/2025 10:15:00 AM, [address] [place] [address], [phone], Provider Name:Yaya hilliard, 12/25/2025 07:45:00 AM, [address] [place] [address], [phone], Provider Name:Yaya hilliard, 01/01/2026 08:30:00 AM, [address] [place] [address], [phone], Progress Notes * Casey CABRERADOB:[birth year] (69 yo M)Acc No.[id number]:03/31/2025 Progress Notes Patient: Casey SALDIVAR Provider: Elaina Galeano MD :1955 A ge:69 Y S ex:Male Date:03/31/2025 Address:[address] [place] [address] Subjective: * Chief Complaints: * n ot sleeping stopped taking Benadryl 1 year ago has been taking Nyquil to sleep * HPI: S ymptom(s): patient is a 69 yo male here with complaint of having trouble sleeping. has to be up at 4 to go to work. goes to sleep at 8 and wakes at 1 am. gets tired in the middle of the day. * ROS: G eneral/Constitutional: Denies C hills. D enies F atigue. D enies F ever. D enies H eadache. E NT: Denies S ore throat. R espiratory: Denies C ough. D enies S hortness of breath at rest. D enies S hortness of breath with exertion. G astrointestinal: Denies D iarrhea. D enies N ausea. * Medical History: * Surgical History: * Hospitalization/Major Diagno stic Procedure: * Medications: T akingBetamethasone Dipropionate 0.05 % Cream 1 application Externally Once a day Sildenafil Citrate 100 MG Tablet TAKE ONE-HALF TABLET BY MOUTH ONCE DAILY IF NEEDED Famotidine 20 MG Tablet 1 tablet at bedtime as needed Orally Once a day Vitamin D 50 MCG (1999) Tablet 1 tablet Orally Once a day Esomeprazole Magnesium 40 MG Capsule Delayed Release TAKE 1 CAPSULE DAILY Valsartan-hydroCHLOROthiazide 320-12.5 MG Tablet TAKE 1 TABLET DAILY Atorvastatin Calcium 20 MG Tablet TAKE 1 TABLET DAILY Taking Betamethasone Dipropionate 0.05 % Cream 1 application Externally Once a day Taking Sildenafil Citrate 100 MG Tablet TAKE ONE-HALF TABLET BY MOUTH ONCE DAILY IF NEEDED Taking Famotidine 20 MG Tablet 1 tablet at bedtime as needed Orally Once a day Taking Vitamin D 50 MCG (1999) Tablet 1 tablet Orally Once a day Taking Esomeprazole Magnesium 40 MG Capsule Delayed Release TAKE 1 CAPSULE DAILY Taking Valsartan-hydroCHLOROthiazide 320-12.5 MG Tablet TAKE 1 TABLET DAILY Taking Atorvastatin Calcium 20 MG Tablet TAKE 1 TABLET DAILY Not-Taking/PRNBenadryl Allergy 25 MG Tablet 1 tablet at bedtime as needed Orally Once a day Medication List reviewed and reconciled with the patientNot-Taking/PRN Benadryl Allergy 25 MG Tablet 1 tablet at bedtime as needed Orally Once a day Medication List reviewed and reconciled with the patient * Allergies: L isinopril: coughyes[Allergies Verified] Objective: * Vitals: H t: 66.5, Wt: 162, BMI:25.75, BP:112/60, Wt-k.48. weight is up 4 pounds since 12-30-24. * Examination: G eneral Examination: GENERAL APPEARANCE: a lert, well hydrated, in no distress.? SKIN: g ood turgor. HEART: r egular rate and rhythm, no murmurs, rubs, gallops.? LUNGS: n o wheezes, rales, rhonchi, good air movement, clear to auscultation bilaterally. Assessment: * Assessment: 1. I nsomnia - G47.00 (Primary) Plan: * Treatment: * Procedure Codes: * * Sign off status: Completed true * Provider: Elaina Galeano MD Date: Generated for Ashli pham/Kristie/Liliana on: 06/19/2024 11:03 PM EST History and Physical Notes * Examination Category Sub-Category Detail Notes Category Not es General Examination GENERAL APPEARANCE: alert, w ell hydrated, in no distress HEART: regular rate and rhy thm, no murmurs, rubs, gallops LUNGS: no wheezes, rales, r honchi, good air movement, clear to auscultation bilaterally SKIN: good turgor
--- OUTSIDE RECORDS SUMMARY | 2025-04-19 23:02 | XMS_ITS | Encounter Summary ---
Author Organization [facility] Address [address] [facility] [address] [place] [address] Phone Care Team Providers Care Attorney Recruiter Name Role Phone Yaya Galeano MD Primary Care Provider Encounter Details Date Type Department Care Team (Late st Contact Info) Description 05/19/2019 Procedure Pass [facility] [address] [place] [address] Social History Tobacco Use Types [...] on filedocumented in this encounter Care Teams Attorney Recruiter Relationship Specialty Start Date End Date Yaya Galeano MD [address] [place] [address] [place] [address] PCP - General Internal Medicine 02/28/19 documented as of this encounter Additional Source Comments The information contained in this document represents components of the legal health record. It is not the complete legal health record.[facility]
--- OUTSIDE RECORDS SUMMARY | 2025-04-19 23:03 | XMS_ITS | Patient Health Record ---
Author Organization Yaya Galeano MD Address [address] [place], [place] [id number] Care Team Providers Care Rod Machine Operator Name Role Phone Yaya Galeano Primary Care Provider [phone] Allergies Allergen (clinical drug ingredient) Drug/Non Drug Allergy documented on EMR Reaction Allergy Type Onset Date Status lisinopril Lisinopril cough Drug Allergy Activ e Results Component Value Reference Range Notes Liver Panel Reviewed date:05/20/2024 04:27:52 PM Interpretation: Performing Lab:[facility], [address] [place] [phone] Notes/Report: Bilirubin Total 0.8 0.0-1.0 mg/dL Bilirubin Direct 0.3 0.0-0.5 mg/dL Aspartate Amino Transferase 34 5-37 U/L Alanine Aminotransferase 33 0-40 U/L Total Protein 6.7 6.5-8.0 g/dL Albumin Level 4.1 3.5-5.0 g/dL Alkaline Phosphatase 95 39-117 U/L Lipid Panel with Reflex Reviewed date:05/20/2024 04:27:32 PM Interpretation: Performing Lab:[facility], [address] [place] [phone] Notes/Report: Triglycerides 90 <150 mg/dL Desirable Triglyceride: [...] ff Reviewed date:12/23/2024 09:26:23 PM Interpretation: Performing Lab:[facility], [address] [place] [phone] Notes/Report: White Blood Count 6.1 4.8-10.8 X10*3/uL [...] NRBC Abs Auto 0.000 0.0-0.012 X10*3/uL Comprehensive Elk. Panel Fa st Reviewed date:12/23/2024 09:26:57 PM Interpretation: Performing Lab:[address] [phone] Notes/Report: Sodium 134 135-145 mmol/L Potassium 3.8 [...] Panel Reviewed date:12/23/2024 09:17:35 PM Interpretation: Performing Lab:[address] [phone] Notes/Report: Triglycerides 106 <150 mg/dL Desirable Triglyceride: [...] (Free>4and<10) Reviewed date:12/23/2024 09:17:21 PM Interpretation: Performing Lab:[address] [phone] Notes/Report: PSA,Total (Free>4and<10) 0.60 0.00-4.00 ng/mL A [...] Total Reviewed date:12/23/2024 09:18:48 PM Interpretation: Performing Lab:[address] [address] Notes/Report: Vitamin D 25-OH Total 75.2 >30 [...] t Reviewed date:12/25/2024 09:28:00 AM Interpretation: Performing Lab:[facility], [address] [place] [phone] Notes/Report: Urine, Clean Catch Color Urine Yellow Appearance Urine Clear PH 7.5 5.0-9.0 Glucose Urine UA Negative Negative mg/dL Urine Blood Negative Negative Specific [place] - Urine 1.015 1.005-1.025 Urine Protein Negative Neg-Trace mg/dL Urine Ketones Negative Negative mg/dL Nitrite Urine Negative Negative Leukocyte Esterase Urine Negative Negative RBC Urine 0-2 0-2 /HPF WBC Urine 0-5 0-5 /HPF Squamous Epithelial Cell Urine 0-2 0-2 /HPF Bacteria Urine None Seen None Seen Hyaline Casts Urine 0-2 0-2 /LPF Barbara Kovacs Reviewed date:05/20/2024 04:27:24 PM Interpretation: Performing Lab:[facility], [address] [place] [phone] Notes/Report: Barbara Kovacs See Note Specimen held [...] the vaccine at [facility] in [place] Fluarix Quadrivalent IM Intramuscular 03/15/2018 Adminbeba red [...] W/U Status Risk Notes Problem Acid reflux (990738341) Acid reflux (K21.9) Active confirmed Problem 276056445 Thyroid nodule (E04.1) Active confirmed Problem Insomnia (942508999) Insomnia (G47.00) Active confirmed Problem Vitamin D deficiency (37956709) Vitamin D deficiency (E55.9) Active confirmed Problem 490647328 Mixed hyperlipidemia (E78.2) Active confirmed Problem 73108352 Essential hypertension (I10) Active confirmed Problem 74450551 Intrinsic eczema (L20.84) Active confirmed Problem 749196921 Vasculogenic erectile dysfunction, 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 Problem 491137694 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 Vital [...] Date Provider Diagnosis Yaya Galeano MD [address] [place] [id number] 05/20/2024 Yaya Galeano Mixed hyperlipidemia E78.2 Yaya Galeano MD [address] [place] [id number] 12/23/2024 Yaya Galeano Blood tests for routine general physical examination Z00.00 ; Essential hypertension I10 ; Mixed hyperlipidemia E78.2 and Vitamin D deficiency E55.9 Yaya Galeano MD [address] [place] [id number] 05/27/2024 Yaya Galeano Mixed hyperlipidemia E78.2 and Essential hypertension I10 Yaya Galeano MD [address] [place] [id number] 06/09/2024 Yaya Galeano Acute recurrent frontal sinusitis J01.11 Yaya Galeano MD [address] [place] [id number] 12/30/2024 Yaya Galeano Annual physical exam Z00.00 ; Encounter for screening for malignant neoplasm of colon Z12.11 ; Encounter for screening for malignant neoplasm of rectum Z12.12 ; Shingles B02.9 ; Essential hypertension I10 ; Mixed hyperlipidemia E78.2 ; Vitamin D deficiency E55.9 ; Acid reflux K21.9 and Depression screening Z13.31 Yaya Galeano MD [address] [place] [id number] 03/31/2025 Yaya Galeano Insomnia G47.00 Assessments Encounter Date Diagnosis (ICD Code) Assessment Notes Treatment Notes Treatment Clinical Notes Section Notes 05/20/2024 Mixed hyperlipidemia (ICD-10 - E78.2) 12/23/2024 Blood tests for routine general physical examination (ICD-10 - Z00.00) 05/27/2024 Mixed hyperlipidemia (ICD-10 - E78.2) doing [...] Z12.11) THE COLOGUARD ORDER WAS FAXED TO [facility] 03/31/2025 Insomnia (ICD-10 - G47.00) patient verbalized understanding of medication and directions for use 12/23/2024 Essential hypertension (ICD-10 - I10) 12/30/2024 [...] Details Provider Name:Yaya perdomor, 07/03/2025 08:00:00 AM, [address] [place] [address], [address], [phone], Provider Name:Yaya Guerrero ier, 07/18/2025 10:15:00 AM, [address] [place] [address], [address], [phone], Provider Name:Yaya perdomor, 12/25/2025 07:45:00 AM, [address] [place] [address], [address] [place] [address], [phone], Provider Name:Yaya perdomor, 01/01/2026 08:30:00 AM, [address] [place] [address], [address], [phone], Insurance Providers Payer Name Payer Address Payer Phone Subscriber Number Group Number Insured Name Patient Relationship to Insured Coverage Start Date Coverage End Date [employer] [address] [place], [place] [id number] [phone] [id number] [place], Christopher Self - patient is the insured Medical (General) History Medical History History ICD Code Endoscopy, 10 years ago, Dr. Villa colonoscopy - 07/05/[address] Villa hy perplastic polyp due in 10 years thyroid nodule biopsy negative Annual physical exam
--- OUTSIDE RECORDS SUMMARY | 2025-04-19 23:03 | XMS_ITS | Encounter Summary ---
Author Organization [facility] Address [address] [facility] [address] [place] [address] Phone Care Team Providers Care School Administrator Name Role Phone Yaya Galeano MD Primary Care Provider Encounter Details Date Type Department Care Team (Late st Contact Info) Description 06/01/2021 Procedure Pass [facility] [address] [place] [address] Social History Tobacco Use Types [...] on filedocumented in this encounter Care Teams School Administrator Relationship Specialty Start Date End Date Yaya Galeano MD [address] [place] [address] Dr ORELLANA [place] [address] PCP - General Internal Medicine 02/28/19 documented as of this encounter Additional Source Comments The information contained in this document represents components of the legal health record. It is not the complete legal health record.[facility]
--- OUTSIDE RECORDS SUMMARY | 2025-04-19 23:04 | XMS_ITS | Clinical Summary ---
Author Organization [facility] Address [address] [address] Phone Care Team Providers Care Software Development Analyst Name Role Phone Yaya Galeano MD Primary [...] this topic Medical Devices Implanted Type Area Software Development Analyst Device Identifier Shelf Expiration Date Model / Serial / Lot Screw Bone 30x6.5mm Hip Cancellous Self Tapping Partial Thrd Trident S/S 16a - [id number] Implanted:Qty: 1 on 05/19/2019 by Leeann Teran MD, PhD at [facility] Right: Hip [employer] 12/29/202320290350-5026 -1 / / [id number] Screw Bone 25x6.5mm Hip Cancellous Self Tapping Partial Thrd Trident S/S 16a - [id number] Implanted:Qty: 1 on 05/19/2019 by Leeann Tearn MD, PhD at [facility] Right: Hip [employer] 12/18/202320298245-4663 -1 / / [id number] Hip Stem 48o764cr Size 4 127deg Femoral Accolade Titanium Hydroxyapatite Coating - [id number] Implanted:Qty: 1 on 05/19/2019 by Leeann Teran MD, PhD at [facility] [employer] Right: Hip [employer] 03/21/2024 3809-2793 / / [id number] Hip 36mm 2.5 Implant Plus Hd Alumina Ceramic Modular Delta Biolox 04 - [id number] Implanted:Qty: 1 on 05/19/2019 by Leeann Teran MD, PhD at [facility] STANDARD Right: Hip [employer] 04/12/2024 6570-0-53 6 / / [id number] Acetabular Insert 36mm 0.0deg Trident Polyethylene Size E - [id number] Implanted:Qty: 1 on 05/19/2019 by Leeann Teran MD, PhD at [facility] STANDARD Right: Hip [employer] 02/27/2024 623-00-36 E / / [id number] Acetabular Shell 52mm Implant Size E She Trident Hemispherical Cluster Ultra High 06 - [id number] Implanted:Qty: 1 on 05/19/2019 by Leeann Teran MD, PhD at [facility] STANDARD Right: Hip [employer] 02/08/2024 502-11-52 E / / [id number] Tooth Implant Procedures Procedure Name Priority Date/Time Associated Diagnosis Comments BASIC METABOLIC PANEL (BMP) Routine 05/20/2019 5:51 AM EST from Last 3 Months or Most Recently Relevant to Health Maintenance Results * (ABNORMAL) Basic metabolic panel (05/20/2019 5:51 AM EST) SODIUM 134(L) 135 - 145 mmol/L [facility] POTASSIUM 3.6 3.4 - 5.0 mmol/L [facility] CHLORIDE 96(L) 98 - 108 mmol/L [facility] CO2 24 23 - 32 mmol/L [facility] BUN 23 8 - 25 mg/dL [facility] CREATININE 1.49 0.60 - 1.50 mg/dL [facility] GLUCOSE 117(H) 70 - 110 mg/dL [facility] CALCIUM 8.6 8.5 - 10.5 mg/dL [facility] EGFR 50(L) >59 mL/min/1. 73m2 [facility] Comment:If patient is black, multiply result by 1.159. Estimated glomerular filtration rate calculated using the CKD-EPI equation. ANION GAP 14 3 - 17 mmol/L [facility] Blood 05/20/2019 5:51 AM EST 05/20/2019 6:01 AM EST Leeann Teran MD, PhD LAB BLOOD BKR ORDERABLES Final Result Performing Organization Address City/State/[facility] Co de Phone Number [address] [address] from Last 3 Months or Most Recently Relevant to Health Maintenance Insurance [facility] HMO POS [facility] HMO POS Y[facility]IR [facility] HMO POS YAIR [facility] HMO POS Y[facility]IR [facility] HMO POS Advance Directives For more information, please contact: [phone] (9AM - 5PM [place], Thursday-Thursday) Documents on File Type Date Recorded Patient Service Person Expl anation Healthcare Proxy 05/19/2019 3:45 PM * Full Code (Presumed) (Latest Code Status on File) Date Activated Date Inactivated Comments 05/19/2019 1:51 PM 05/20/2019 2:01 PM Care Teams Software Development Analyst Relationship Specialty Start Date End Date Yaya Galeano MD [address] [place] [address] Dr Vargas, [place] [address] PCP - General Internal Medicine 02/28/19 Additional Source Comments The information contained in this document represents components of the legal health record. It is not the complete legal health record.[facility]
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
== END 2025-04-19 11:51 | disposition home or self-care (01) ==
LOC: HO.HAP 11:50
PROVIDERS: Visit Provider Internal Medicine
DX: Z46.1 Encounter for fitting and adjustment of hearing aid (principal)
CPT/HCPCS: V5014; V5267